=== PATIENT | male | born 1950 | race African-American/Black ===

== ENCOUNTER 2023-03-09 14:18 | Inpatient (IN) | payer MEDICAID ==
[~2023-03-09] VITALS: Ht 182.9 cm; Wt 83.9 kg
[~2023-03-09 14:18] MED LIST: ACET-868 GT; ACET100V5 HHN; ALBU2.5V13 HHN; ALBU2.5V38 HHN; AMLO-212 GT; ASCO500T10 GT; BISA10SU11 RC; DOCU100T2 GT; IPRA0.2S9 HHN; LACT-209 GT; LANS30CA56 GT; LEVE500T9 GT; LEVO50TA8 GT; MELA3TAB41 GT; METO25TA6 GT; NEOM1OIN15 TP; ONDA4TAB5 GT; PETR113O TP; SCOP1PAT11 TD; THERA HONEY TOP; ZINC220C6 GT
[2023-03-09] MEDS ORDERED: PETR113O TP (14:44)
[2023-03-09] MEDS ORDERED: HYDR1SOL TP (14:44)
[2023-03-09] MEDS ORDERED: CHLO473M5 MM (14:44)
[2023-03-09] MEDS ORDERED: GLYC2TAB21 GT (14:44)
[2023-03-09] MEDS ORDERED: DEXT15DR6 EACHEYE (14:44)
[2023-03-09] MEDS ORDERED: PANT40SU2 GT (14:44)
[2023-03-09] MEDS ORDERED: ALLA266C2 TP (14:44)
[2023-03-09] MEDS ORDERED: LEVE100S GT (14:44)
[2023-03-09] MEDS ORDERED: NEOM28.37 TP (14:56)
[2023-03-09 16:11] LABS: BASOPHILS % (AUTO) 0.9 % (0.0-2.0); EOSINOPHILS # (AUTO) 0.3 K/uL (0.0-0.7); HEMATOCRIT 37 % (39-51); HEMOGLOBIN 11.1 g/dL (13.5-17.5); LYMPHOCYTES # (AUTO) 1.4 K/uL (0.8-4.8); LYMPHOCYTES % (AUTO) 26.4 % (20.0-44.0); MEAN CORPUSCULAR HEMOGLOBIN 24 PG (26.0-33.0); MEAN CORPUSCULAR HGB CONC 31 g/dl (31.0-36.0); MEAN CORPUSCULAR VOLUME 78 fL (80-96); MONOCYTES # (AUTO) 0.6 K/uL (0.1-1.30); MONOCYTES % (AUTO) 11.2 % (2.0-12.0); NEUTROPHILS # (AUTO) 3.1 K/uL (1.8-8.9); NEUTROPHILS % (AUTO) 56.5 % (43.0-81.0); PLATELET COUNT (AUTO) 287 K/uL (150-450); RED BLOOD CELL COUNT(AUTO) 4.66 MIL/uL (4.5-6.0); RED CELL DISTRIBUTION WIDTH 24.9 % (11.5-15.0); WHITE BLOOD COUNT (AUTO) 5.4 K/uL (4.3-11.0)
[2023-03-09 16:32] LABS: INR 1.1 (0.91-1.10); PARTIAL THROMBOPLASTIN TIME 31.8 SEC (24.3-34.3); PROTHROMBIN TIME 11.6 SECS (9.2-11.1)
[2023-03-09 16:36] LABS: ALANINE AMINOTRANSFERASE 47 U/L (12-78); ALBUMIN 3.1 g/dL (3.4-5.0); ALKALINE PHOSPHATASE 162 U/L (46-116); ASPARTATE AMINOTRANSFERASE 26 U/L (15-37); BILIRUBIN,DIRECT 0.1 mg/dL (0.0-0.2); BILIRUBIN,TOTAL 0.3 mg/dL (0.2-1.0); CALCIUM, SERUM 9.5 mg/dL (8.5-10.1); CARBON DIOXIDE 27 mmol/L (21-32); CHLORIDE 106 mmol/L (98-107); CREATININE 0.6 mg/dL (0.6-1.3); GLUCOSE 88 mg/dL (74-106); POTASSIUM 4.1 mmol/L (3.5-5.1); SODIUM SERUM 141 mmol/L (136-145); TOTAL PROTEIN, SERUM 10.2 g/dL (6.4-8.2); UREA NITROGEN, BLOOD 20 mg/dL (7-18)
[2023-03-09 17:42] LABS: ANISOCYTOSIS 1+; BASOPHILS % (MANUAL) 1 % (0.0-2.0); EOSINOPHILS % (MANUAL) 4 % (0-4); HYPOCHROMASIA 1+; LYMPHOCYTES % (MANUAL) 28 % (16-48); MONOCYTES % (MANUAL) 8 % (0-11.0); NEUTROPHILS % (MANUAL) 59 (42-76); PLATELET ESTIMATE ADEQUATE; ROULEAUX 1+
[2023-03-09 17:46] VITALS: BP 161/95; TEMP 98.9; O2SAT 100
[2023-03-09] MEDS ORDERED: IPRATROPIUM NEB FS 0.5 MG/2.5 ML AMPUL.NEB HHN PRN (18:00)
[2023-03-09] MEDS ORDERED: BISACODYL SUPP (10 MG) 10 MG/SUPP.RECT SUPP.RECT RC PRN (18:00)
[2023-03-09] MEDS ORDERED: ACETAMINOPHEN 325 MG TABLET MC PRN ×2 (18:00)
[2023-03-09] MEDS ORDERED: JEVITY 1.2 CAL 1,000 ML BOTTLE GT SCH (18:00)
[2023-03-09] MEDS ORDERED: ALBUTEROL FS 2.5 MG/3 ML VIAL.NEB NEB PRN (18:00)
[2023-03-09 20:00] VITALS: BP 161/95; TEMP 98.9; O2SAT 100
[2023-03-09] MEDS ORDERED: ONDANSETRON HCL/PF 4 MG/2 ML VIAL IVP PRN (20:00)
[2023-03-09] MEDS ORDERED: Z GUARD REMEDY 4 OZ OINT TP PRN (20:00)
[2023-03-09] MEDS: IPRATROPIUM NEB FS 0.5 MG/2.5 ML AMPUL.NEB HHN SCH (20:05)
[2023-03-09] MEDS: ALBUTEROL FS 2.5 MG/0.5 ML VIAL.NEB HHN SCH (20:06)
[2023-03-09] MEDS: NEOMY SULF/BACITRAC ZN/POLY 15 GM TUBE TP SCH (21:00)
[2023-03-09] MEDS: LEVETIRACETAM SOL (5 ML) 100 MG/ML UDC GT SCH (22:09)
[2023-03-09] MEDS: ENOXAPARIN SODIUM 40 MG/0.4 ML DISP.SYRIN SQ SCH (22:13)
[2023-03-10] VITALS: BP 138/78; TEMP 93.4; TEMP 97.6; O2SAT 100
[2023-03-10] MEDS: IPRATROPIUM NEB FS 0.5 MG/2.5 ML AMPUL.NEB HHN SCH ×7 (00:12→23:46)
[2023-03-10] MEDS: ALBUTEROL FS 2.5 MG/0.5 ML VIAL.NEB HHN SCH ×7 (00:12→23:46)
[2023-03-10] MEDS: IV NS 0.9% 1,000 ML IV PRN ×2 (01:58→14:20)
[2023-03-10 04:00] VITALS: BP 125/65; TEMP 98.6; O2SAT 98
[2023-03-10] MEDS: PANTOPRAZOLE 40 MG/PACK PACK GT SCH (05:50)
[2023-03-10] MEDS: LEVOTHYROXINE SODIUM 50 MCG TABLET GT SCH (05:51)
[2023-03-10 07:06] LABS: BASOPHILS % (AUTO) 0.6 % (0.0-2.0); EOSINOPHILS # (AUTO) 0.2 K/uL (0.0-0.7); EOSINOPHILS % (AUTO) 5.2 % (0.0-6.0); HEMATOCRIT 38 % (39-51); HEMOGLOBIN 11.7 g/dL (13.5-17.5); LYMPHOCYTES # (AUTO) 1.3 K/uL (0.8-4.8); LYMPHOCYTES % (AUTO) 31.2 % (20.0-44.0); MEAN CORPUSCULAR HEMOGLOBIN 24 PG (26.0-33.0); MEAN CORPUSCULAR HGB CONC 31 g/dl (31.0-36.0); MEAN CORPUSCULAR VOLUME 79 fL (80-96); MONOCYTES # (AUTO) 0.3 K/uL (0.1-1.30); MONOCYTES % (AUTO) 8.4 % (2.0-12.0); NEUTROPHILS # (AUTO) 2.2 K/uL (1.8-8.9); NEUTROPHILS % (AUTO) 54.6 % (43.0-81.0); PLATELET COUNT (AUTO) 264 K/uL (150-450); RED BLOOD CELL COUNT(AUTO) 4.83 MIL/uL (4.5-6.0); RED CELL DISTRIBUTION WIDTH 25.1 % (11.5-15.0); WHITE BLOOD COUNT (AUTO) 4.1 K/uL (4.3-11.0)
[2023-03-10 07:31] LABS: CALCIUM, SERUM 9.3 mg/dL (8.5-10.1); CREATININE 0.7 mg/dL (0.6-1.3); MAGNESIUM 1.9 mg/dL (1.8-2.4); POTASSIUM 4.1 mmol/L (3.5-5.1)
[2023-03-10 08:00] VITALS: BP 137/80; TEMP 98; O2SAT 98
[2023-03-10 08:28] LABS: ANISOCYTOSIS 1+; EOSINOPHILS % (MANUAL) 4 % (0-4); LYMPHOCYTES % (MANUAL) 34 % (16-48); MONOCYTES % (MANUAL) 13 % (0-11.0); NEUTROPHILS % (MANUAL) 49 (42-76); PLATELET ESTIMATE ADEQUATE
[2023-03-10] MEDS: CHLORHEXIDINE GLUCONATE 15 ML UDC MM SCH ×2 (08:49→16:48)
[2023-03-10] MEDS: LEVETIRACETAM SOL (5 ML) 100 MG/ML UDC GT SCH ×2 (08:50→21:03)
[2023-03-10] MEDS: NEOMY SULF/BACITRAC ZN/POLY 15 GM TUBE TP SCH ×2 (08:51→21:14)
[2023-03-10] MEDS: AMLODIPINE BESYLATE 5 MG TABLET GT SCH (08:51)
[2023-03-10 12:00] VITALS: BP 145/84; TEMP 97.9; O2SAT 99
[2023-03-10] MEDS: JEVITY 1.2 CAL 1,000 ML BOTTLE GT SCH (14:19)
[2023-03-10 16:00] VITALS: BP 128/78; TEMP 97.9; O2SAT 99
[2023-03-10 20:00] VITALS: BP 110/65; TEMP 98.1; O2SAT 99
[2023-03-10] MEDS: ENOXAPARIN SODIUM 40 MG/0.4 ML DISP.SYRIN SQ SCH (21:04)
[2023-03-11] VITALS: BP 110/65; TEMP 98.1; O2SAT 99
[2023-03-11] MEDS: IV NS 0.9% 1,000 ML IV PRN ×2 (03:22→15:29)
[2023-03-11 04:00] VITALS: BP 110/65; TEMP 98.1; O2SAT 99
[2023-03-11] MEDS: ALBUTEROL FS 2.5 MG/0.5 ML VIAL.NEB HHN SCH ×6 (04:08→23:28)
[2023-03-11] MEDS: IPRATROPIUM NEB FS 0.5 MG/2.5 ML AMPUL.NEB HHN SCH ×6 (04:08→23:28)
[2023-03-11] MEDS: LEVOTHYROXINE SODIUM 50 MCG TABLET GT SCH (05:29)
[2023-03-11] MEDS: PANTOPRAZOLE 40 MG/PACK PACK GT SCH (05:30)
[2023-03-11 08:00] VITALS: BP 137/69; TEMP 97.5; O2SAT 99
[2023-03-11] MEDS: NEOMY SULF/BACITRAC ZN/POLY 15 GM TUBE TP SCH ×2 (08:35→21:28)
[2023-03-11] MEDS: LEVETIRACETAM SOL (5 ML) 100 MG/ML UDC GT SCH ×2 (08:39→21:17)
[2023-03-11] MEDS: CHLORHEXIDINE GLUCONATE 15 ML UDC MM SCH ×2 (08:40→16:31)
[2023-03-11] MEDS: AMLODIPINE BESYLATE 5 MG TABLET GT SCH (08:40)
[2023-03-11 12:00] VITALS: BP 123/74; TEMP 98.2; O2SAT 100
[2023-03-11] MEDS: JEVITY 1.2 CAL 1,000 ML BOTTLE GT SCH (15:19)
[2023-03-11 16:00] VITALS: BP 130/70; TEMP 98.8; O2SAT 99
[2023-03-11 20:00] VITALS: BP 92/44; TEMP 99; O2SAT 98
[2023-03-11] MEDS: ENOXAPARIN SODIUM 40 MG/0.4 ML DISP.SYRIN SQ SCH (21:18)
[2023-03-12] VITALS: BP 142/78; TEMP 97.5; O2SAT 100
[2023-03-12 04:00] VITALS: BP 141/76; TEMP 98.6; O2SAT 100
[2023-03-12] MEDS: ALBUTEROL FS 2.5 MG/0.5 ML VIAL.NEB HHN SCH ×3 (04:15→11:31)
[2023-03-12] MEDS: IPRATROPIUM NEB FS 0.5 MG/2.5 ML AMPUL.NEB HHN SCH ×3 (04:16→11:30)
[2023-03-12] MEDS: LEVOTHYROXINE SODIUM 50 MCG TABLET GT SCH (05:04)
[2023-03-12] MEDS: PANTOPRAZOLE 40 MG/PACK PACK GT SCH (05:04)
[2023-03-12 08:00] VITALS: BP 148/81; TEMP 98.1; O2SAT 100
[2023-03-12] MEDS: CHLORHEXIDINE GLUCONATE 15 ML UDC MM SCH (08:48)
[2023-03-12] MEDS: LEVETIRACETAM SOL (5 ML) 100 MG/ML UDC GT SCH (08:48)
[2023-03-12 08:49] VITALS: BP 148/81
[2023-03-12] MEDS: AMLODIPINE BESYLATE 5 MG TABLET GT SCH (08:49)
[2023-03-12] MEDS: NEOMY SULF/BACITRAC ZN/POLY 15 GM TUBE TP SCH (08:49)
[2023-03-12] MEDS: JEVITY 1.2 CAL 1,000 ML BOTTLE GT SCH (08:53)
== END 2023-03-12 14:35 | DRG 201 ==
LOC: ER 14:21 → TELE-TD 17:23 → TELE1 03-12 09:49
PROVIDERS: ADMIT Nurse Practitioner Acute Care; ATTEND Nurse Practitioner Acute Care
PROC: 5A1945Z Respiratory Ventilation, 24-96 Consecutive Hours (ICD-10-PCS; principal; 2023-03-09)
DX: I44.2 Atrioventricular block, complete (principal); J96.20 Acute and chronic respiratory failure, unspecified whether with hypoxia or hypercapnia; I21.A1 Myocardial infarction type 2; R53.2 Functional quadriplegia; J90 Pleural effusion, not elsewhere classified; G93.1 Anoxic brain damage, not elsewhere classified; E87.1 Hypo-osmolality and hyponatremia; D63.8 Anemia in other chronic diseases classified elsewhere; Z99.11 Dependence on respirator [ventilator] status; Z93.1 Gastrostomy status; Z93.0 Tracheostomy status; R13.10 Dysphagia, unspecified; R33.9 Retention of urine, unspecified; Z79.51 Long term (current) use of inhaled steroids; Z79.899 Other long term (current) drug therapy; Q27.30 Arteriovenous malformation, site unspecified; I11.0 Hypertensive heart disease with heart failure; E78.5 Hyperlipidemia, unspecified; M10.9 Gout, unspecified; L30.9 Dermatitis, unspecified; E03.9 Hypothyroidism, unspecified; Z98.890 Other specified postprocedural states; Z79.890 Hormone replacement therapy; I50.42 Chronic combined systolic (congestive) and diastolic (congestive) heart failure
CPT/HCPCS: 31720; 36415; 71045-TC; 80048-TC; 80061-TC; 80076-TC; 83735-TC; 84100-TC; 84484-TC; 85025-TC; 85730-TC; 93307-TC; 94002-TC; 94003-TC; 94760-TC; 94799-TC; A6253; G0378; J1650; J1953; J7030

== ENCOUNTER 2023-04-10 06:44 | Inpatient (IN) | payer MEDICAID ==
[2023-04-10] VITALS (11 sets, daily range): BP systolic 96–133; BP diastolic 55–71; TEMP 96.1–98.4; O2SAT 98–100
[~2023-04-10] VITALS: Ht 170.2 cm; Wt 75.8 kg
[~2023-04-10 06:44] MED LIST changes: -ACET100V5 HHN; +ALLA266C2 TP; -ASCO500T10 GT; +CHLO473M5 MM; +DEXT15DR6 EACHEYE; +GLYC2TAB21 GT; +HYDR1SOL TP; -LANS30CA56 GT; +LEVE100S GT; -LEVE500T9 GT; -NEOM1OIN15 TP; +NEOM28.37 TP; +PANT40SU2 GT; -SCOP1PAT11 TD; -THERA HONEY TOP; -ZINC220C6 GT
[2023-04-10] MEDS ORDERED: LEVETIRACETAM (500MG) 1,000 MG in IV NS 0.9% 90 ML IV STA (06:47)
[2023-04-10] MEDS ORDERED: IV NS 0.9% 1,000 ML BAG IV ONE ×3 (07:00→09:00)
[2023-04-10] MEDS ORDERED: LEVETIRACETAM (500MG) 500 MG/5 ML VIAL IV ONE ×2 (07:00→07:02)
[2023-04-10] MEDS ORDERED: LORAZEPAM INJ 2 MG/ML VIAL IV ONE (07:00)
[2023-04-10] MEDS ORDERED: DEXTROSE 50%-WATER 50 ML DISP.SYRIN ONE (07:00)
[2023-04-10] MEDS ORDERED: DEXTROSE 50%-WATER 50 ML DISP.SYRIN IVP ONE (07:00)
[2023-04-10] MEDS ORDERED: LORAZEPAM INJ 2 MG/ML VIAL ONE (07:01)
[2023-04-10 07:26] LABS: BASOPHILS % (AUTO) 0.6 % (0.0-2.0); EOSINOPHILS # (AUTO) 0.1 K/uL (0.0-0.7); EOSINOPHILS % (AUTO) 0.6 % (0.0-6.0); HEMATOCRIT 36 % (39-51); HEMOGLOBIN 11.1 g/dL (13.5-17.5); LYMPHOCYTES # (AUTO) 0.5 K/uL (0.8-4.8); LYMPHOCYTES % (AUTO) 6.2 % (20.0-44.0); MEAN CORPUSCULAR HEMOGLOBIN 24 PG (26.0-33.0); MEAN CORPUSCULAR HGB CONC 31 g/dl (31.0-36.0); MEAN CORPUSCULAR VOLUME 79 fL (80-96); MONOCYTES # (AUTO) 0.5 K/uL (0.1-1.30); MONOCYTES % (AUTO) 6.2 % (2.0-12.0); NEUTROPHILS # (AUTO) 7.4 K/uL (1.8-8.9); NEUTROPHILS % (AUTO) 86.4 % (43.0-81.0); PLATELET COUNT (AUTO) 286 K/uL (150-450); RED BLOOD CELL COUNT(AUTO) 4.56 MIL/uL (4.5-6.0); RED CELL DISTRIBUTION WIDTH 25.8 % (11.5-15.0); WHITE BLOOD COUNT (AUTO) 8.5 K/uL (4.3-11.0)
[2023-04-10 07:35] LABS: ALANINE AMINOTRANSFERASE 43 U/L (12-78); ALBUMIN 2.8 g/dL (3.4-5.0); ALCOHOL, BLOOD < 3 mg/dL (0-10); ALKALINE PHOSPHATASE 198 U/L (46-116); ASPARTATE AMINOTRANSFERASE 30 U/L (15-37); BILIRUBIN,DIRECT 0.1 mg/dL (0.0-0.2); BILIRUBIN,TOTAL 0.3 mg/dL (0.2-1.0); CALCIUM, SERUM 9.3 mg/dL (8.5-10.1); CARBON DIOXIDE 29 mmol/L (21-32); CHLORIDE 103 mmol/L (98-107); CREATININE 0.8 mg/dL (0.6-1.3); GLUCOSE 78 mg/dL (74-106); POTASSIUM 4.8 mmol/L (3.5-5.1); SODIUM SERUM 136 mmol/L (136-145); TOTAL PROTEIN, SERUM 9.7 g/dL (6.4-8.2); UREA NITROGEN, BLOOD 25 mg/dL (7-18)
[2023-04-10 08:41] LABS: THYROID STIMULATING HORMONE 4.772 uIU/mL (0.358-3.74)
[2023-04-10] MEDS ORDERED: VANCOMYCIN 1 GM in IV D5W 250 ML IV ONE (09:00)
[2023-04-10] MEDS ORDERED: CEFEPIME 1 GM in IV D5W 50 ML IV ONE (09:00)
[2023-04-10 09:31] LABS: AMPHETAMINE, URINE NEGATIVE (NEGATIVE); BARBITURATE, URINE NEGATIVE (NEGATIVE); BENZODIAZEPINE, URINE NEGATIVE (NEGATIVE); CANNABINOID, URINE NEGATIVE (NEGATIVE); COCCAINE, URINE NEGATIVE (NEGATIVE); OPIATE, URINE NEGATIVE (NEGATIVE); PHENCYCLIDINE SCREEN,URINE NEGATIVE (NEGATIVE)
[2023-04-10 09:41] LABS: APPEARANCE,URINE SLIGHTLY CLOUDY (CLEAR); BILIRUBIN,URINE NEGATIVE (NEGATIVE); BLOOD, URINE 1+ Ery/uL (NEGATIVE); COLOR,URINE YELLOW (YELLOW); KETONES,URINE NEGATIVE (NEGATIVE); LEUKOCYTE ESTERASE ,URINE 3+ (NEGATIVE); NITRITE, URINE NEGATIVE (NEGATIVE); PH,URINE 7.5 (5.0-8.0); PROTEIN,URINE 2+ mg/dl (NEGATIVE); UGLUCOSE NEGATIVE (NEGATIVE); UROBILINOGEN,URINE 0.2 EU/dL (0.2)
[2023-04-10 09:56] LABS: ADD URINE CULTURE YES; BACTERIA,URINE Moderate /HPF (None Seen); WBC,URINE 81-100 /HPF (0-3)
[2023-04-10 09:57] LABS: SQUAMOUS EPITHELIAL CELL,UR Few /HPF (None Seen)
[2023-04-10] MEDS ORDERED: ACETAMINOPHEN 325 MG TABLET PO PRN (13:30)
[2023-04-10] MEDS ORDERED: ONDANSETRON HCL/PF 4 MG/2 ML VIAL IVP PRN (13:30)
[2023-04-10] MEDS ORDERED: MAGNESIUM HYDROXIDE 30 ML UDC PO PRN (13:30)
[2023-04-10] MEDS ORDERED: ZOLPIDEM TARTRATE 5 MG TABLET PO PRN (13:30)
[2023-04-10] MEDS ORDERED: LEVETIRACETAM (500MG) 500 MG in IV NS 0.9% 100 ML IV ONE (13:30)
[2023-04-10] MEDS ORDERED: MAG HYDROX/AL HYDROX/SIMETH 30 ML UDC PO PRN (13:30)
[2023-04-10] MEDS ORDERED: LORAZEPAM INJ 2 MG/ML VIAL IV PRN (13:30)
[2023-04-10] MEDS ORDERED: Z GUARD REMEDY 4 OZ OINT TP PRN (13:30)
[2023-04-10] MEDS ORDERED: IV NS 0.9% 250 ML IV PRN (16:00)
[2023-04-10] MEDS: ACETYLCYSTEINE 10% SOLN 400 MG/4 ML VIAL NEB SCH ×2 (16:00→23:21)
[2023-04-10] MEDS: LEVETIRACETAM (500MG) 1,000 MG in IV NS 0.9% 90 ML IV SCH (20:00)
[2023-04-10] MEDS: CEFEPIME 2 GM in IV D5W 100 ML IV SCH (20:30)
[2023-04-10] MEDS: VANCOMYCIN 1 GM in IV D5W 250ml IV SCH (21:00)
[2023-04-11] VITALS (17 sets, daily range): BP systolic 108–136; BP diastolic 61–104; TEMP 97.4–98.3; O2SAT 93–99
[2023-04-11] MEDS: CEFEPIME 2 GM in IV D5W 100 ML IV SCH ×3 (05:00→20:52)
[2023-04-11 05:35] LABS: BASOPHILS % (AUTO) 0.3 % (0.0-2.0); EOSINOPHILS # (AUTO) 0.1 K/uL (0.0-0.7); HEMATOCRIT 30 % (39-51); HEMOGLOBIN 9.2 g/dL (13.5-17.5); LYMPHOCYTES # (AUTO) 0.9 K/uL (0.8-4.8); LYMPHOCYTES % (AUTO) 20.7 % (20.0-44.0); MEAN CORPUSCULAR HEMOGLOBIN 24 PG (26.0-33.0); MEAN CORPUSCULAR HGB CONC 31 g/dl (31.0-36.0); MEAN CORPUSCULAR VOLUME 80 fL (80-96); MONOCYTES # (AUTO) 0.5 K/uL (0.1-1.30); MONOCYTES % (AUTO) 11.9 % (2.0-12.0); NEUTROPHILS # (AUTO) 2.8 K/uL (1.8-8.9); NEUTROPHILS % (AUTO) 65.1 % (43.0-81.0); PLATELET COUNT (AUTO) 230 K/uL (150-450); RED BLOOD CELL COUNT(AUTO) 3.77 MIL/uL (4.5-6.0); RED CELL DISTRIBUTION WIDTH 25.3 % (11.5-15.0); WHITE BLOOD COUNT (AUTO) 4.4 K/uL (4.3-11.0)
[2023-04-11 05:46] LABS: CALCIUM, SERUM 8.7 mg/dL (8.5-10.1); CREATININE 0.8 mg/dL (0.6-1.3); MAGNESIUM 2.6 mg/dL (1.8-2.4); POTASSIUM 4.1 mmol/L (3.5-5.1)
[2023-04-11] MEDS: ACETYLCYSTEINE 10% SOLN 400 MG/4 ML VIAL NEB SCH ×2 (06:57→15:30)
[2023-04-11] MEDS: JEVITY 1.2 CAL 1,000 ML BOTTLE GT PRN (08:57)
[2023-04-11] MEDS: VANCOMYCIN 1 GM in IV D5W 250ml IV SCH (09:00)
[2023-04-11] MEDS: LEVETIRACETAM (500MG) 1,000 MG in IV NS 0.9% 90 ML IV SCH (10:25)
[2023-04-11] MEDS: LEVETIRACETAM SOL (5 ML) 100 MG/ML UDC GT SCH (20:52)
[2023-04-12 00:06] VITALS: BP 152/80; TEMP 97.6; O2SAT 99
[2023-04-12] MEDS: ACETYLCYSTEINE 10% SOLN 400 MG/4 ML VIAL NEB SCH ×4 (00:15→23:51)
[2023-04-12] MEDS: CEFEPIME 2 GM in IV D5W 100 ML IV SCH ×3 (04:26→21:10)
[2023-04-12 05:10] VITALS: BP 125/82; TEMP 98.1; O2SAT 99
[2023-04-12] MEDS: JEVITY 1.2 CAL 1,000 ML BOTTLE GT PRN (05:26)
[2023-04-12 06:00] LABS: BASOPHILS % (AUTO) 0.5 % (0.0-2.0); EOSINOPHILS # (AUTO) 0.1 K/uL (0.0-0.7); EOSINOPHILS % (AUTO) 1.4 % (0.0-6.0); HEMATOCRIT 34 % (39-51); HEMOGLOBIN 10.3 g/dL (13.5-17.5); LYMPHOCYTES # (AUTO) 1.1 K/uL (0.8-4.8); LYMPHOCYTES % (AUTO) 15.5 % (20.0-44.0); MEAN CORPUSCULAR HEMOGLOBIN 25 PG (26.0-33.0); MEAN CORPUSCULAR HGB CONC 31 g/dl (31.0-36.0); MEAN CORPUSCULAR VOLUME 80 fL (80-96); MONOCYTES # (AUTO) 0.8 K/uL (0.1-1.30); MONOCYTES % (AUTO) 10.9 % (2.0-12.0); NEUTROPHILS # (AUTO) 4.9 K/uL (1.8-8.9); NEUTROPHILS % (AUTO) 71.7 % (43.0-81.0); PLATELET COUNT (AUTO) 271 K/uL (150-450); RED CELL DISTRIBUTION WIDTH 25.7 % (11.5-15.0); WHITE BLOOD COUNT (AUTO) 6.9 K/uL (4.3-11.0)
[2023-04-12 06:54] LABS: CREATININE 0.8 mg/dL (0.6-1.3); MAGNESIUM 2.3 mg/dL (1.8-2.4); PHOSPHORUS 3.3 mg/dL (2.5-4.9); POTASSIUM 4.2 mmol/L (3.5-5.1)
[2023-04-12 08:00] VITALS: BP 119/72; TEMP 98.1; O2SAT 97
[2023-04-12] MEDS: LEVETIRACETAM SOL (5 ML) 100 MG/ML UDC GT SCH ×2 (08:51→21:19)
[2023-04-12] MEDS: LORAZEPAM INJ 2 MG/ML VIAL IV PRN (10:08)
[2023-04-12] MEDS: VANCOMYCIN 0.75 GM in IV D5W 250 ML IV SCH ×2 (10:27→21:16)
[2023-04-12 12:00] VITALS: BP 113/61; TEMP 97.7; O2SAT 95
[2023-04-12] MEDS ORDERED: ACETAMINOPHEN 325 MG TABLET PO PRN (13:30)
[2023-04-12] MEDS ORDERED: BISACODYL SUPP (10 MG) 10 MG/SUPP.RECT SUPP.RECT RC PRN (13:30)
[2023-04-12] MEDS ORDERED: ONDANSETRON 4 MG TAB.RAPDIS GT PRN (13:30)
[2023-04-12] MEDS ORDERED: IPRATROPIUM NEB FS 0.5 MG/2.5 ML AMPUL.NEB HHN PRN (13:30)
[2023-04-12] MEDS ORDERED: Medication Not On Formulary EA (Melatonin 3 MG) GT PRN (13:30)
[2023-04-12] MEDS: IPRATROPIUM NEB FS 0.5 MG/2.5 ML AMPUL.NEB HHN SCH ×3 (14:30→23:51)
[2023-04-12] MEDS: ALBUTEROL FS 2.5 MG/3 ML VIAL.NEB NEB PRN ×2 (14:30→16:58)
[2023-04-12] MEDS: ALBUTEROL FS 2.5 MG/0.5 ML VIAL.NEB HHN SCH ×3 (15:30→23:51)
[2023-04-12 16:00] VITALS: BP 130/72; TEMP 97.5; O2SAT 100
[2023-04-12] MEDS: CHLORHEXIDINE GLUCONATE 15 ML UDC MM SCH (18:02)
[2023-04-12] MEDS: POLYVINYL ALCOHOL 15 ML BOTTLE EACHEYE SCH (18:02)
[2023-04-12 20:00] VITALS: BP 132/76; TEMP 96.8; O2SAT 100
[2023-04-12] MEDS ORDERED: [UNRECOGNIZED DRUG - OTHER] TOP SCH (21:00)
[2023-04-12] MEDS: VITS A AND D/WHITE PET/LANOLIN 5 GM PACKET TP SCH (21:00)
[2023-04-12] MEDS ORDERED: LEVETIRACETAM SOL (5 ML) 100 MG/ML UDC GT SCH (21:00)
[2023-04-12] MEDS: METOPROLOL TARTRATE 25 MG TABLET GT SCH (21:17)
[2023-04-12] MEDS: Z GUARD REMEDY 4 OZ OINT TP SCH (22:26)
[2023-04-13] VITALS: BP 114/73; TEMP 95; O2SAT 100
[2023-04-13 04:00] VITALS: BP 125/81; TEMP 98.1; O2SAT 99
[2023-04-13] MEDS: IPRATROPIUM NEB FS 0.5 MG/2.5 ML AMPUL.NEB HHN SCH ×6 (04:01→23:39)
[2023-04-13] MEDS: ALBUTEROL FS 2.5 MG/0.5 ML VIAL.NEB HHN SCH ×6 (04:01→23:39)
[2023-04-13] MEDS: CEFEPIME 2 GM in IV D5W 100 ML IV SCH ×3 (04:56→20:06)
[2023-04-13] MEDS: LORAZEPAM INJ 2 MG/ML VIAL IV PRN (05:56)
[2023-04-13] MEDS: PANTOPRAZOLE 40 MG/PACK PACK GT SCH (05:57)
[2023-04-13] MEDS: POLYVINYL ALCOHOL 15 ML BOTTLE EACHEYE SCH ×4 (05:57→18:06)
[2023-04-13] MEDS: LEVOTHYROXINE SODIUM 50 MCG TABLET GT SCH (05:57)
[2023-04-13] MEDS ORDERED: MAGNESIUM HYDROXIDE 30 ML UDC GT PRN (06:23)
[2023-04-13] MEDS ORDERED: ZOLPIDEM TARTRATE 5 MG TABLET GT PRN (06:23)
[2023-04-13] MEDS ORDERED: MAG HYDROX/AL HYDROX/SIMETH 30 ML UDC GT PRN (06:23)
[2023-04-13 06:30] LABS: BASOPHILS % (AUTO) 0.4 % (0.0-2.0); EOSINOPHILS # (AUTO) 0.1 K/uL (0.0-0.7); HEMATOCRIT 33 % (39-51); HEMOGLOBIN 9.8 g/dL (13.5-17.5); LYMPHOCYTES # (AUTO) 0.8 K/uL (0.8-4.8); LYMPHOCYTES % (AUTO) 18.2 % (20.0-44.0); MEAN CORPUSCULAR HEMOGLOBIN 24 PG (26.0-33.0); MEAN CORPUSCULAR HGB CONC 30 g/dl (31.0-36.0); MEAN CORPUSCULAR VOLUME 81 fL (80-96); MONOCYTES # (AUTO) 0.6 K/uL (0.1-1.30); MONOCYTES % (AUTO) 13.5 % (2.0-12.0); NEUTROPHILS # (AUTO) 2.8 K/uL (1.8-8.9); NEUTROPHILS % (AUTO) 65.9 % (43.0-81.0); PLATELET COUNT (AUTO) 215 K/uL (150-450); RED BLOOD CELL COUNT(AUTO) 4.07 MIL/uL (4.5-6.0); RED CELL DISTRIBUTION WIDTH 26.1 % (11.5-15.0); WHITE BLOOD COUNT (AUTO) 4.3 K/uL (4.3-11.0)
[2023-04-13] MEDS ORDERED: ACETAMINOPHEN 650 MG/20.3 ML UDC GT PRN (06:30)
[2023-04-13 07:12] LABS: CALCIUM, SERUM 9.2 mg/dL (8.5-10.1); CREATININE 0.7 mg/dL (0.6-1.3); MAGNESIUM 2.5 mg/dL (1.8-2.4); PHOSPHORUS 3.6 mg/dL (2.5-4.9); POTASSIUM 4.5 mmol/L (3.5-5.1)
[2023-04-13] MEDS: ACETYLCYSTEINE 10% SOLN 400 MG/4 ML VIAL NEB SCH ×3 (07:40→23:39)
[2023-04-13 08:00] VITALS: BP 121/70; TEMP 98.1; O2SAT 99
[2023-04-13] MEDS: VITS A AND D/WHITE PET/LANOLIN 5 GM PACKET TP SCH (09:00)
[2023-04-13] MEDS: METOPROLOL TARTRATE 25 MG TABLET GT SCH ×2 (09:00→21:10)
[2023-04-13] MEDS: Z GUARD REMEDY 4 OZ OINT TP SCH ×2 (09:40→21:23)
[2023-04-13] MEDS: LEVETIRACETAM SOL (5 ML) 100 MG/ML UDC GT SCH ×2 (09:40→21:10)
[2023-04-13] MEDS: CHLORHEXIDINE GLUCONATE 15 ML UDC MM SCH ×2 (09:40→17:25)
[2023-04-13] MEDS: DOCUSATE SODIUM LIQ 100 MG/10 ML UDC GT SCH (09:41)
[2023-04-13] MEDS: GLYCOPYRROLATE 1 MG TABLET GT SCH (09:41)
[2023-04-13] MEDS: AMLODIPINE BESYLATE 5 MG TABLET GT SCH (09:41)
[2023-04-13] MEDS: VANCOMYCIN 0.75 GM in IV D5W 250 ML IV SCH ×2 (09:42→21:00)
[2023-04-13] MEDS: HYDROGEN PEROXIDE 480 ML BOTTLE TP SCH (09:55)
[2023-04-13 12:00] VITALS: BP 109/62; TEMP 97; O2SAT 100
[2023-04-13] MEDS: VITAMINS A AND D 56.7 GM TUBE TP SCH ×2 (12:33→21:23)
[2023-04-13 16:00] VITALS: BP 120/73; TEMP 97; O2SAT 99
[2023-04-13] MEDS: JEVITY 1.2 CAL 1,000 ML BOTTLE GT PRN (18:16)
[2023-04-13 22:50] VITALS: BP 120/70; TEMP 97.1; O2SAT 99
[2023-04-14] MEDS: POLYVINYL ALCOHOL 15 ML BOTTLE EACHEYE SCH ×4 (02:55→18:02)
[2023-04-14] MEDS: ALBUTEROL FS 2.5 MG/0.5 ML VIAL.NEB HHN SCH ×6 (03:43→23:20)
[2023-04-14] MEDS: IPRATROPIUM NEB FS 0.5 MG/2.5 ML AMPUL.NEB HHN SCH ×6 (03:43→23:20)
[2023-04-14 04:00] VITALS: BP 126/69; TEMP 96.4; O2SAT 100
[2023-04-14] MEDS: CEFEPIME 2 GM in IV D5W 100 ML IV SCH ×3 (05:02→20:55)
[2023-04-14] MEDS: PANTOPRAZOLE 40 MG/PACK PACK GT SCH (05:26)
[2023-04-14] MEDS: LEVOTHYROXINE SODIUM 50 MCG TABLET GT SCH (05:26)
[2023-04-14 08:00] VITALS: BP_SYST 115; BP_SYST 126; BP_DIAS 69; BP_DIAS 71; TEMP 96.4; TEMP 97; O2SAT 100
[2023-04-14] MEDS: ACETYLCYSTEINE 10% SOLN 400 MG/4 ML VIAL NEB SCH ×3 (08:20→23:21)
[2023-04-14 08:25] LABS: CALCIUM, SERUM 9.1 mg/dL (8.5-10.1); CREATININE 0.7 mg/dL (0.6-1.3); MAGNESIUM 2.6 mg/dL (1.8-2.4); PHOSPHORUS 3.4 mg/dL (2.5-4.9); POTASSIUM 5.1 mmol/L (3.5-5.1)
[2023-04-14] MEDS: VITAMINS A AND D 56.7 GM TUBE TP SCH ×2 (09:00→20:56)
[2023-04-14] MEDS: Z GUARD REMEDY 4 OZ OINT TP SCH ×2 (09:00→21:01)
[2023-04-14] MEDS: HYDROGEN PEROXIDE 480 ML BOTTLE TP SCH (09:00)
[2023-04-14] MEDS: METOPROLOL TARTRATE 25 MG TABLET GT SCH ×2 (09:00→20:54)
[2023-04-14] MEDS: VANCOMYCIN 0.75 GM in IV D5W 250 ML IV SCH (09:00)
[2023-04-14] MEDS: DOCUSATE SODIUM LIQ 100 MG/10 ML UDC GT SCH (09:57)
[2023-04-14] MEDS: LEVETIRACETAM SOL (5 ML) 100 MG/ML UDC GT SCH ×2 (09:57→20:53)
[2023-04-14] MEDS: AMLODIPINE BESYLATE 5 MG TABLET GT SCH (09:57)
[2023-04-14] MEDS: GLYCOPYRROLATE 1 MG TABLET GT SCH (09:59)
[2023-04-14] MEDS: CHLORHEXIDINE GLUCONATE 15 ML UDC MM SCH ×2 (10:03→18:02)
[2023-04-14 11:33] LABS: BASOPHILS % (AUTO) 0.6 % (0.0-2.0); EOSINOPHILS # (AUTO) 0.1 K/uL (0.0-0.7); EOSINOPHILS % (AUTO) 2.5 % (0.0-6.0); HEMATOCRIT 32 % (39-51); HEMOGLOBIN 9.8 g/dL (13.5-17.5); LYMPHOCYTES # (AUTO) 1.2 K/uL (0.8-4.8); LYMPHOCYTES % (AUTO) 21.7 % (20.0-44.0); MEAN CORPUSCULAR HEMOGLOBIN 25 PG (26.0-33.0); MEAN CORPUSCULAR HGB CONC 30 g/dl (31.0-36.0); MEAN CORPUSCULAR VOLUME 81 fL (80-96); MONOCYTES # (AUTO) 0.9 K/uL (0.1-1.30); MONOCYTES % (AUTO) 15.9 % (2.0-12.0); NEUTROPHILS # (AUTO) 3.3 K/uL (1.8-8.9); NEUTROPHILS % (AUTO) 59.3 % (43.0-81.0); PLATELET COUNT (AUTO) 203 K/uL (150-450); RED BLOOD CELL COUNT(AUTO) 3.99 MIL/uL (4.5-6.0); RED CELL DISTRIBUTION WIDTH 25.4 % (11.5-15.0); WHITE BLOOD COUNT (AUTO) 5.6 K/uL (4.3-11.0)
[2023-04-14 12:00] VITALS: BP 135/71; TEMP 97; O2SAT 100
[2023-04-14] MEDS: LORAZEPAM INJ 2 MG/ML VIAL IV PRN (13:24)
[2023-04-14 16:00] VITALS: BP 135/71; TEMP 97; O2SAT 100
[2023-04-14] MEDS: JEVITY 1.2 CAL 1,000 ML BOTTLE GT PRN (16:05)
[2023-04-14 20:00] VITALS: BP 119/71; TEMP 97.3; O2SAT 100
[2023-04-14] MEDS ORDERED: VANCOMYCIN 1 GM in IV D5W 250 ML IV SCH (21:00)
[2023-04-15] VITALS: BP 147/86; TEMP 94; O2SAT 100
[2023-04-15] MEDS: POLYVINYL ALCOHOL 15 ML BOTTLE EACHEYE SCH ×3 (00:18→12:01)
[2023-04-15] MEDS: ALBUTEROL FS 2.5 MG/0.5 ML VIAL.NEB HHN SCH ×3 (03:57→11:24)
[2023-04-15] MEDS: IPRATROPIUM NEB FS 0.5 MG/2.5 ML AMPUL.NEB HHN SCH ×3 (03:57→11:24)
[2023-04-15 04:00] VITALS: BP 109/86; TEMP 97.6; O2SAT 98
[2023-04-15] MEDS: CEFEPIME 2 GM in IV D5W 100 ML IV SCH ×2 (04:04→12:02)
[2023-04-15] MEDS: PANTOPRAZOLE 40 MG/PACK PACK GT SCH (05:02)
[2023-04-15] MEDS: LEVOTHYROXINE SODIUM 50 MCG TABLET GT SCH (05:02)
[2023-04-15 06:27] LABS: BASOPHILS % (AUTO) 0.4 % (0.0-2.0); EOSINOPHILS # (AUTO) 0.2 K/uL (0.0-0.7); EOSINOPHILS % (AUTO) 4.4 % (0.0-6.0); HEMATOCRIT 29 % (39-51); HEMOGLOBIN 9.1 g/dL (13.5-17.5); LYMPHOCYTES # (AUTO) 0.8 K/uL (0.8-4.8); LYMPHOCYTES % (AUTO) 18.5 % (20.0-44.0); MEAN CORPUSCULAR HEMOGLOBIN 25 PG (26.0-33.0); MEAN CORPUSCULAR HGB CONC 31 g/dl (31.0-36.0); MEAN CORPUSCULAR VOLUME 79 fL (80-96); MONOCYTES # (AUTO) 0.6 K/uL (0.1-1.30); MONOCYTES % (AUTO) 15.1 % (2.0-12.0); NEUTROPHILS # (AUTO) 2.5 K/uL (1.8-8.9); NEUTROPHILS % (AUTO) 61.6 % (43.0-81.0); PLATELET COUNT (AUTO) 227 K/uL (150-450); RED CELL DISTRIBUTION WIDTH 25.3 % (11.5-15.0); WHITE BLOOD COUNT (AUTO) 4.1 K/uL (4.3-11.0)
[2023-04-15 07:00] LABS: ALBUMIN 2.2 g/dL (3.4-5.0); BILIRUBIN,TOTAL 0.3 mg/dL (0.2-1.0); CALCIUM, SERUM 8.7 mg/dL (8.5-10.1); CREATININE 0.8 mg/dL (0.6-1.3); MAGNESIUM 2.2 mg/dL (1.8-2.4); PHOSPHORUS 3.2 mg/dL (2.5-4.9); POTASSIUM 5.2 mmol/L (3.5-5.1); TOTAL PROTEIN, SERUM 8.1 g/dL (6.4-8.2)
[2023-04-15 08:00] VITALS: BP 110/57; TEMP 94.6; O2SAT 100
[2023-04-15] MEDS: ACETYLCYSTEINE 10% SOLN 400 MG/4 ML VIAL NEB SCH (08:36)
[2023-04-15] MEDS: LEVETIRACETAM SOL (5 ML) 100 MG/ML UDC GT SCH (09:30)
[2023-04-15] MEDS: CHLORHEXIDINE GLUCONATE 15 ML UDC MM SCH (09:31)
[2023-04-15] MEDS: METOPROLOL TARTRATE 25 MG TABLET GT SCH (09:31)
[2023-04-15] MEDS: AMLODIPINE BESYLATE 5 MG TABLET GT SCH (09:31)
[2023-04-15] MEDS: DOCUSATE SODIUM LIQ 100 MG/10 ML UDC GT SCH (09:31)
[2023-04-15] MEDS: GLYCOPYRROLATE 1 MG TABLET GT SCH (09:31)
[2023-04-15] MEDS: HYDROGEN PEROXIDE 480 ML BOTTLE TP SCH (09:33)
[2023-04-15] MEDS: Z GUARD REMEDY 4 OZ OINT TP SCH (09:49)
[2023-04-15] MEDS: VITAMINS A AND D 56.7 GM TUBE TP SCH (09:50)
[2023-04-15 12:00] VITALS: BP 111/62; TEMP 94.7; O2SAT 100
[2023-04-15] MEDS ORDERED: POLY15DR40 EACHEYE (14:28)
[2023-04-15] MEDS ORDERED: CEFE2FRO IV (14:28)
[2023-04-15] MEDS ORDERED: ACET100V5 NEB (14:28)
[2023-04-15] MEDS ORDERED: ZOLP5TAB8 PO (14:28)
[2023-04-15] MEDS ORDERED: VANC1PLA9 IV (14:28)
== END 2023-04-15 15:01 | DRG 130 ==
LOC: ER 06:52 → TRANSITION 09:44 → TELE-TD 11:30 → ICU 13:30 → TELE-TD 04-11 12:30 → MEDSG1 04-11 14:09 → TELE-TD 04-11 14:10 → TELE1 04-12 11:05
PROVIDERS: ADMIT Student in an Organized Health Care Education/Training Program
PROC: 5A1955Z Respiratory Ventilation, Greater than 96 Consecutive Hours (ICD-10-PCS; principal; 2023-04-10)
PROC: 02HV33Z Insertion of Infusion Device into Superior Vena Cava, Percutaneous Approach (ICD-10-PCS; 2023-04-10)
PROC: B548ZZA Ultrasonography of Superior Vena Cava, Guidance (ICD-10-PCS; 2023-04-10)
DX: J15.69 Pneumonia due to other Gram-negative bacteria (principal); G93.49 Other encephalopathy; G93.1 Anoxic brain damage, not elsewhere classified; G40.901 Epilepsy, unspecified, not intractable, with status epilepticus; R53.2 Functional quadriplegia; Q28.2 Arteriovenous malformation of cerebral vessels; E87.1 Hypo-osmolality and hyponatremia; D63.8 Anemia in other chronic diseases classified elsewhere; J90 Pleural effusion, not elsewhere classified; J96.10 Chronic respiratory failure, unspecified whether with hypoxia or hypercapnia; Z99.11 Dependence on respirator [ventilator] status; N39.0 Urinary tract infection, site not specified; E78.5 Hyperlipidemia, unspecified; I10 Essential (primary) hypertension; Z98.2 Presence of cerebrospinal fluid drainage device; Z93.0 Tracheostomy status; Z93.1 Gastrostomy status; R13.10 Dysphagia, unspecified; E03.9 Hypothyroidism, unspecified; K21.9 Gastro-esophageal reflux disease without esophagitis; Z79.899 Other long term (current) drug therapy; R33.9 Retention of urine, unspecified; Z79.51 Long term (current) use of inhaled steroids; M10.9 Gout, unspecified; T17.990A Other foreign object in respiratory tract, part unspecified in causing asphyxiation, initial encounter; W44.F9XA Other object of natural or organic material, entering into or through a natural orifice, initial encounter; Y92.9 Unspecified place or not applicable; J98.11 Atelectasis; L30.9 Dermatitis, unspecified; Y95 Nosocomial condition
CPT/HCPCS: 31720; 36415; 70450-TC; 71045-TC; 71250-TC; 80048-TC; 80053-TC; 80076-TC; 80202-TC; 81001; 82962-TC; 83605-TC; 83735-TC; 83880; 84100-TC; 84439-TC; 84443-TC; 84484-TC; 85025-TC; 87086-TC; 94003-TC; 94760-TC; 94762-TC; 94799-TC; 95819-TC; A4223; A6253; A6403; A7526; G0378; G0480; J0692; J1953; J2060; J3370; J7030; J7040; J7050; J7060

== ENCOUNTER 2023-05-11 | Inpatient (IN) | payer MEDICAID ==
[~2023-05-11] VITALS: Ht 170.2 cm; Wt 77.1 kg
[~2023-05-11] MED LIST changes: +ACET100V5 NEB; +CEFE2FRO IV; -DEXT15DR6 EACHEYE; -MELA3TAB41 GT; -NEOM28.37 TP; +POLY15DR40 EACHEYE; +VANC1PLA9 IV; +ZOLP5TAB8 PO
[2023-05-12] MEDS ORDERED: HYDROGEN PEROXIDE 480 ML BOTTLE TP PRN (07:00)
[2023-05-12] MEDS ORDERED: LEVETIRACETAM SOL (5 ML) 100 MG/ML UDC GT SCH (07:00)
[2023-05-12] MEDS: ALBUTEROL FS 2.5 MG/0.5 ML VIAL.NEB HHN SCH (08:03)
[2023-05-12] MEDS: IPRATROPIUM NEB FS 0.5 MG/2.5 ML AMPUL.NEB NEB SCH (08:03)
[2023-05-12] MEDS: HYDROGEN PEROXIDE 480 ML BOTTLE TP SCH (08:04)
[2023-05-12] MEDS: ACETYLCYSTEINE 10% SOLN 400 MG/4 ML VIAL NEB SCH (08:04)
[2023-05-12] MEDS: GLYCOPYRROLATE 1 MG TABLET GT SCH (09:00)
[2023-05-12] MEDS: DOCUSATE SODIUM LIQ 100 MG/10 ML UDC GT SCH (09:00)
[2023-05-12] MEDS: METOPROLOL TARTRATE 25 MG TABLET GT SCH (09:00)
[2023-05-12] MEDS: CHLORHEXIDINE GLUCONATE 15 ML UDC MM SCH (09:00)
[2023-05-12] MEDS: VITAMINS A AND D 56.7 GM TUBE TP SCH ×2 (09:00)
[2023-05-12] MEDS: Z GUARD REMEDY 4 OZ OINT TP SCH (09:00)
[2023-05-12] MEDS: AMLODIPINE BESYLATE 5 MG TABLET GT SCH (09:00)
[2023-05-12] MEDS: LACOSAMIDE ORAL SOLN 50 MG/5 ML UDC GT SCH (09:00)
[2023-05-12 10:18] VITALS: O2SAT 98
[2023-05-12 16:44] VITALS: BP 129/73; TEMP 97.9
[2023-05-12 20:03] VITALS: BP 139/68; TEMP 98; O2SAT 97
[2023-05-13] MEDS: POLYVINYL ALCOHOL 15 ML BOTTLE EACHEYE SCH (01:32)
[2023-05-13 04:28] VITALS: O2SAT 98
[2023-05-13] MEDS: PANTOPRAZOLE 40 MG/PACK PACK GT SCH (05:17)
[2023-05-13] MEDS: LEVETIRACETAM SOL (5 ML) 100 MG/ML UDC GT SCH (05:17)
[2023-05-13] MEDS: LEVOTHYROXINE SODIUM 50 MCG TABLET GT SCH (05:17)
[2023-05-13] MEDS: JEVITY 1.2 CAL 1,000 ML BOTTLE GT PRN (05:17)
[2023-05-13 08:03] VITALS: BP 120/69; TEMP 98.4; O2SAT 99
[2023-05-13 12:10] VITALS: O2SAT 98
[2023-05-13 20:17] VITALS: O2SAT 98
[2023-05-13 20:39] VITALS: BP 129/78; TEMP 97.9; O2SAT 99
[2023-05-13 23:31] VITALS: O2SAT 100
[2023-05-14 07:40] VITALS: BP 132/88; TEMP 97.8; O2SAT 99
[2023-05-14 09:18] VITALS: O2SAT 97
[2023-05-14 11:51] LABS: BASOPHILS # (AUTO) 0.1 K/uL (0.0-0.2); BASOPHILS % (AUTO) 0.7 % (0.0-2.0); EOSINOPHILS # (AUTO) 0.2 K/uL (0.0-0.7); EOSINOPHILS % (AUTO) 2.2 % (0.0-6.0); HEMATOCRIT 34 % (39-51); HEMOGLOBIN 10.5 g/dL (13.5-17.5); LYMPHOCYTES % (AUTO) 12.6 % (20.0-44.0); MEAN CORPUSCULAR HEMOGLOBIN 25 PG (26.0-33.0); MEAN CORPUSCULAR HGB CONC 31 g/dl (31.0-36.0); MEAN CORPUSCULAR VOLUME 80 fL (80-96); MONOCYTES # (AUTO) 0.8 K/uL (0.1-1.30); NEUTROPHILS % (AUTO) 74.5 % (43.0-81.0); PLATELET COUNT (AUTO) 692 K/uL (150-450); RED BLOOD CELL COUNT(AUTO) 4.26 MIL/uL (4.5-6.0); RED CELL DISTRIBUTION WIDTH 23.7 % (11.5-15.0)
[2023-05-14 12:00] VITALS: O2SAT 99
[2023-05-14 12:02] LABS: INR 1.15 (0.91-1.10); PROTHROMBIN TIME 12.1 SECS (9.2-11.1)
[2023-05-14 13:29] LABS: ALBUMIN 2.2 g/dL (3.4-5.0); BILIRUBIN,TOTAL 0.2 mg/dL (0.2-1.0); CALCIUM, SERUM 9.3 mg/dL (8.5-10.1); CREATININE 0.7 mg/dL (0.6-1.3); POTASSIUM 4.1 mmol/L (3.5-5.1); TOTAL PROTEIN, SERUM 9.2 g/dL (6.4-8.2)
[2023-05-14 19:35] VITALS: BP 129/78; TEMP 97.9; O2SAT 97
[2023-05-14 19:58] VITALS: O2SAT 100
[2023-05-14 22:56] VITALS: O2SAT 99
[2023-05-15 07:35] VITALS: BP 128/74; TEMP 98.1; O2SAT 99
[2023-05-15] MEDS: PROSOURCE / PROSTAT (PYXIS) 30 ML UDC GT SCH (08:00)
[2023-05-15 10:45] VITALS: O2SAT 100
[2023-05-15 21:07] VITALS: BP 140/75; TEMP 98.1; O2SAT 98
[2023-05-15 22:55] VITALS: O2SAT 100
[2023-05-15 22:56] VITALS: O2SAT 99
[2023-05-16 07:38] VITALS: BP 123/76; TEMP 98.2; O2SAT 99
[2023-05-16 07:45] LABS: BASOPHILS % (AUTO) 0.5 % (0.0-2.0); EOSINOPHILS # (AUTO) 0.2 K/uL (0.0-0.7); EOSINOPHILS % (AUTO) 1.9 % (0.0-6.0); HEMATOCRIT 35 % (39-51); HEMOGLOBIN 10.4 g/dL (13.5-17.5); LYMPHOCYTES # (AUTO) 1.1 K/uL (0.8-4.8); LYMPHOCYTES % (AUTO) 12.8 % (20.0-44.0); MEAN CORPUSCULAR HEMOGLOBIN 24 PG (26.0-33.0); MEAN CORPUSCULAR HGB CONC 30 g/dl (31.0-36.0); MEAN CORPUSCULAR VOLUME 81 fL (80-96); MONOCYTES # (AUTO) 1.1 K/uL (0.1-1.30); MONOCYTES % (AUTO) 12.2 % (2.0-12.0); NEUTROPHILS # (AUTO) 6.3 K/uL (1.8-8.9); NEUTROPHILS % (AUTO) 72.6 % (43.0-81.0); PLATELET COUNT (AUTO) 661 K/uL (150-450); RED BLOOD CELL COUNT(AUTO) 4.35 MIL/uL (4.5-6.0); RED CELL DISTRIBUTION WIDTH 23.6 % (11.5-15.0); WHITE BLOOD COUNT (AUTO) 8.7 K/uL (4.3-11.0)
[2023-05-16 09:09] LABS: ALBUMIN 2.1 g/dL (3.4-5.0); BILIRUBIN,TOTAL 0.2 mg/dL (0.2-1.0); CALCIUM, SERUM 9.3 mg/dL (8.5-10.1); CREATININE 0.6 mg/dL (0.6-1.3); POTASSIUM 4.1 mmol/L (3.5-5.1); TOTAL PROTEIN, SERUM 9.2 g/dL (6.4-8.2)
[2023-05-16 10:28] VITALS: O2SAT 99
[2023-05-16 10:29] VITALS: O2SAT 99
[2023-05-16 19:48] VITALS: BP 132/87; TEMP 97.9; O2SAT 98
[2023-05-16 23:17] VITALS: O2SAT 99
[2023-05-17 07:52] VITALS: BP 114/77; TEMP 97.9; O2SAT 98
[2023-05-17 10:06] VITALS: O2SAT 99
[2023-05-17 10:48] VITALS: O2SAT 99
[2023-05-17 11:17] VITALS: O2SAT 99
[2023-05-17 20:07] VITALS: BP 138/83; TEMP 97.7; O2SAT 99
[2023-05-17 22:37] VITALS: O2SAT 99
[2023-05-18 08:43] VITALS: BP 130/69; TEMP 98; O2SAT 95
[2023-05-18 10:14] VITALS: O2SAT 98
[2023-05-18 20:00] VITALS: BP 134/71; TEMP 98.1; O2SAT 99
[2023-05-19] VITALS (7 sets, daily range): BP systolic 131–141; BP diastolic 78–79; TEMP 97.9–98; O2SAT 97–100
[2023-05-19 09:05] LABS: BASOPHILS % (AUTO) 0.5 % (0.0-2.0); EOSINOPHILS # (AUTO) 0.1 K/uL (0.0-0.7); HEMATOCRIT 33 % (39-51); HEMOGLOBIN 10.2 g/dL (13.5-17.5); LYMPHOCYTES # (AUTO) 1.3 K/uL (0.8-4.8); MEAN CORPUSCULAR HEMOGLOBIN 25 PG (26.0-33.0); MEAN CORPUSCULAR HGB CONC 31 g/dl (31.0-36.0); MEAN CORPUSCULAR VOLUME 80 fL (80-96); MONOCYTES # (AUTO) 0.8 K/uL (0.1-1.30); MONOCYTES % (AUTO) 10.8 % (2.0-12.0); NEUTROPHILS # (AUTO) 4.9 K/uL (1.8-8.9); NEUTROPHILS % (AUTO) 68.7 % (43.0-81.0); PLATELET COUNT (AUTO) 583 K/uL (150-450); RED BLOOD CELL COUNT(AUTO) 4.11 MIL/uL (4.5-6.0); RED CELL DISTRIBUTION WIDTH 23.8 % (11.5-15.0); WHITE BLOOD COUNT (AUTO) 7.1 K/uL (4.3-11.0)
[2023-05-19 09:24] LABS: ALBUMIN 2.2 g/dL (3.4-5.0); BILIRUBIN,TOTAL 0.2 mg/dL (0.2-1.0); CALCIUM, SERUM 9.3 mg/dL (8.5-10.1); CREATININE 0.8 mg/dL (0.6-1.3); POTASSIUM 4.9 mmol/L (3.5-5.1); TOTAL PROTEIN, SERUM 9.3 g/dL (6.4-8.2)
[2023-05-19 09:44] LABS: INR 1.18 (0.91-1.10); PROTHROMBIN TIME 12.4 SECS (9.2-11.1)
[2023-05-19] MEDS: IV D5/ 0.9% NACL 1,000 ML IV PRN (16:00)
[2023-05-20 08:00] VITALS: BP 140/96; TEMP 98.4; O2SAT 96
[2023-05-20 11:07] VITALS: O2SAT 100
[2023-05-20 11:08] VITALS: O2SAT 100
[2023-05-20 20:00] VITALS: BP 131/79; TEMP 98.3; O2SAT 99
[2023-05-20 22:59] VITALS: O2SAT 99
[2023-05-21 07:17] VITALS: BP 141/86; TEMP 98; O2SAT 100
[2023-05-21 09:32] VITALS: O2SAT 99
[2023-05-21 12:17] VITALS: O2SAT 100
[2023-05-21 21:42] VITALS: BP 136/78; TEMP 98.7; O2SAT 100
[2023-05-21 23:05] VITALS: O2SAT 99
[2023-05-22 07:30] VITALS: BP 137/77; TEMP 98; O2SAT 99
[2023-05-22 10:49] VITALS: O2SAT 100
[2023-05-22 10:52] VITALS: O2SAT 100
[2023-05-22 20:18] VITALS: BP 127/89; TEMP 98; O2SAT 98
[2023-05-22] MEDS: MELATONIN 3 MG TABLET GT PRN (22:00)
[2023-05-22 22:41] VITALS: O2SAT 100
[2023-05-22 22:42] VITALS: O2SAT 100
[2023-05-23 07:42] VITALS: BP 150/90; TEMP 96.7; O2SAT 99
[2023-05-23 11:00] VITALS: O2SAT 98
[2023-05-23 11:01] VITALS: O2SAT 98
[2023-05-23 19:09] VITALS: BP 134/81; TEMP 97.9; O2SAT 100
[2023-05-23 23:20] VITALS: O2SAT 100
[2023-05-24 08:17] VITALS: BP 104/76; TEMP 96.7; O2SAT 100
[2023-05-24 10:53] VITALS: O2SAT 100
[2023-05-24 19:36] VITALS: BP 126/89; TEMP 97.8; O2SAT 99
[2023-05-24 23:03] VITALS: O2SAT 99
[2023-05-25 07:53] VITALS: BP 148/79; TEMP 97.4; O2SAT 100
[2023-05-25 10:52] VITALS: O2SAT 97
[2023-05-25 10:53] VITALS: O2SAT 97
[2023-05-25 19:52] VITALS: BP 136/81; TEMP 98.2; O2SAT 100
[2023-05-25 22:34] VITALS: O2SAT 100
[2023-05-26 08:43] VITALS: BP 133/79; TEMP 98.7; O2SAT 100
[2023-05-26 10:47] VITALS: O2SAT 100
[2023-05-26 10:48] VITALS: O2SAT 99
[2023-05-26 19:27] VITALS: BP 133/75; TEMP 98; O2SAT 99
[2023-05-26 23:04] VITALS: O2SAT 100
[2023-05-26 23:13] VITALS: O2SAT 100
[2023-05-27 07:00] VITALS: BP 107/57; TEMP 98; O2SAT 100
[2023-05-27 09:55] VITALS: O2SAT 100
[2023-05-27 10:02] VITALS: O2SAT 99
[2023-05-27 19:21] VITALS: BP 118/72; TEMP 98; O2SAT 99
[2023-05-27 23:18] VITALS: O2SAT 100
[2023-05-28] MEDS: ACETAMINOPHEN 650 MG/20.3 ML UDC GT PRN (00:27)
[2023-05-28] MEDS: VANCOMYCIN HCL 1 GM in IV D5W 260 ML IV ONE (00:30)
[2023-05-28] MEDS: CEFTRIAXONE 1 G in IV D5W 50 ML IV SCH (01:30)
[2023-05-28 07:27] LABS: CALCIUM, SERUM 9.1 mg/dL (8.5-10.1); CREATININE 0.9 mg/dL (0.6-1.3); POTASSIUM 4.8 mmol/L (3.5-5.1)
[2023-05-28 08:04] VITALS: BP 128/63; TEMP 97.5; O2SAT 100
[2023-05-28 12:49] VITALS: O2SAT 99
[2023-05-28] MEDS: VANCOMYCIN 1 GM in IV D5W 250ml IV SCH (14:00)
[2023-05-28] MEDS: BISACODYL SUPP (10 MG) 10 MG/SUPP.RECT SUPP.RECT RC PRN (17:09)
[2023-05-28 19:41] VITALS: BP 121/76; TEMP 98; O2SAT 100
[2023-05-28 22:43] VITALS: O2SAT 100
[2023-05-29 09:13] VITALS: BP 136/75; TEMP 98; O2SAT 98
[2023-05-29 10:18] VITALS: O2SAT 100
[2023-05-29 20:00] VITALS: BP 140/71; TEMP 98.8; O2SAT 100
[2023-05-29 22:53] VITALS: O2SAT 100
[2023-05-30 02:03] LABS: CALCIUM, SERUM 9.2 mg/dL (8.5-10.1); CREATININE 0.8 mg/dL (0.6-1.3); POTASSIUM 4.7 mmol/L (3.5-5.1)
[2023-05-30 07:34] VITALS: BP 130/71; TEMP 98.6; O2SAT 100
[2023-05-30 10:13] VITALS: O2SAT 99
[2023-05-30] MEDS: VANCOMYCIN 1.25 GM in IV D5W 250 ML IV SCH (17:48)
[2023-05-30 20:56] VITALS: BP 113/79; TEMP 98; O2SAT 100
[2023-05-30 23:05] VITALS: O2SAT 99
[2023-05-31 07:13] VITALS: BP 127/71; TEMP 98.4; O2SAT 100
[2023-05-31 10:52] VITALS: O2SAT 100
[2023-05-31 10:53] VITALS: O2SAT 100
[2023-05-31 21:41] VITALS: BP 129/77; TEMP 98.6; O2SAT 99
[2023-05-31 23:14] VITALS: O2SAT 100
[2023-05-31 23:15] VITALS: O2SAT 99
[2023-06-01 07:41] VITALS: BP 143/79; TEMP 97.6; O2SAT 99
[2023-06-01 10:13] VITALS: O2SAT 99
[2023-06-01 18:21] LABS: CREATININE 0.8 mg/dL (0.6-1.3)
[2023-06-01 20:00] VITALS: BP 136/82; TEMP 97.6; O2SAT 100
[2023-06-01 22:23] VITALS: O2SAT 100
[2023-06-02 08:51] VITALS: BP 136/67; TEMP 96.7; O2SAT 99
[2023-06-02 10:51] VITALS: O2SAT 99
[2023-06-02 11:08] VITALS: O2SAT 99
[2023-06-02 21:33] VITALS: BP 135/78; TEMP 97.8; O2SAT 99
[2023-06-02 23:51] VITALS: O2SAT 99
[2023-06-03 07:37] VITALS: BP 135/83; TEMP 97.8; O2SAT 100
[2023-06-03 10:35] VITALS: O2SAT 100
[2023-06-03 10:36] VITALS: O2SAT 100
[2023-06-03 21:20] VITALS: BP 136/73; TEMP 97.3; O2SAT 99
[2023-06-03 22:47] VITALS: O2SAT 99
[2023-06-04 07:12] VITALS: BP 134/73; TEMP 97; O2SAT 98
[2023-06-04 10:59] VITALS: O2SAT 98
[2023-06-04 20:23] VITALS: BP 133/82; TEMP 97.2; O2SAT 100
[2023-06-04 22:21] VITALS: O2SAT 99
[2023-06-04 22:22] VITALS: O2SAT 99
[2023-06-05 08:02] VITALS: BP 127/82; TEMP 97.6; O2SAT 99
[2023-06-05 10:26] VITALS: O2SAT 97
[2023-06-05 19:26] VITALS: BP 129/67; TEMP 98.3; O2SAT 99
[2023-06-05 22:57] VITALS: O2SAT 100
[2023-06-06 08:17] VITALS: BP 140/83; TEMP 97.3; O2SAT 100
[2023-06-06 10:17] LABS: CALCIUM, SERUM 9.3 mg/dL (8.5-10.1); CREATININE 0.7 mg/dL (0.6-1.3); POTASSIUM 4.7 mmol/L (3.5-5.1)
[2023-06-06 10:24] LABS: BASOPHILS % (AUTO) 0.4 % (0.0-2.0); EOSINOPHILS # (AUTO) 0.2 K/uL (0.0-0.7); EOSINOPHILS % (AUTO) 4.2 % (0.0-6.0); HEMATOCRIT 28 % (39-51); HEMOGLOBIN 8.5 g/dL (13.5-17.5); LYMPHOCYTES # (AUTO) 0.6 K/uL (0.8-4.8); LYMPHOCYTES % (AUTO) 13.4 % (20.0-44.0); MEAN CORPUSCULAR HEMOGLOBIN 24 PG (26.0-33.0); MEAN CORPUSCULAR HGB CONC 31 g/dl (31.0-36.0); MEAN CORPUSCULAR VOLUME 79 fL (80-96); MONOCYTES # (AUTO) 0.4 K/uL (0.1-1.30); NEUTROPHILS # (AUTO) 3.4 K/uL (1.8-8.9); PLATELET COUNT (AUTO) 125 K/uL (150-450); RED BLOOD CELL COUNT(AUTO) 3.51 MIL/uL (4.5-6.0); RED CELL DISTRIBUTION WIDTH 24.3 % (11.5-15.0); WHITE BLOOD COUNT (AUTO) 4.6 K/uL (4.3-11.0)
[2023-06-06 10:56] VITALS: O2SAT 99
[2023-06-06 10:57] VITALS: O2SAT 99
[2023-06-06 19:55] VITALS: BP 123/74; TEMP 97.6; O2SAT 98
[2023-06-06 22:32] VITALS: O2SAT 100
[2023-06-07 09:04] VITALS: BP 140/81; TEMP 97.3; O2SAT 100
[2023-06-07 10:17] VITALS: O2SAT 100; O2SAT 98
[2023-06-07 19:55] VITALS: BP 145/81; TEMP 97.2; O2SAT 100
[2023-06-07 22:33] VITALS: O2SAT 100
[2023-06-08 07:39] VITALS: BP 144/70; TEMP 97.5; O2SAT 100
[2023-06-08 10:07] VITALS: O2SAT 99
[2023-06-08 19:42] VITALS: BP 138/85; TEMP 97.6; O2SAT 100
[2023-06-08 22:33] VITALS: O2SAT 98
[2023-06-08 22:34] VITALS: O2SAT 100
[2023-06-09 08:38] VITALS: BP 142/73; TEMP 97.7; O2SAT 99
[2023-06-09 11:18] VITALS: O2SAT 98
[2023-06-09 11:19] VITALS: O2SAT 98
[2023-06-09 19:22] VITALS: BP 136/74; TEMP 97.9; O2SAT 100
[2023-06-09 22:17] VITALS: O2SAT 100
[2023-06-10 07:30] VITALS: BP 145/85; TEMP 98.2; O2SAT 100
[2023-06-10 10:45] VITALS: O2SAT 100
[2023-06-10 19:43] VITALS: BP 144/73; TEMP 97.8; O2SAT 99
[2023-06-10 22:49] VITALS: O2SAT 99
[2023-06-11 07:03] VITALS: BP 151/76; TEMP 98.8; O2SAT 99
[2023-06-11 10:34] VITALS: O2SAT 100
[2023-06-11 10:35] VITALS: O2SAT 100
[2023-06-11 19:11] VITALS: BP 137/85; TEMP 97.2; O2SAT 100
[2023-06-11 22:56] VITALS: O2SAT 100
[2023-06-12 07:47] VITALS: BP 131/85; TEMP 98.1; O2SAT 97
[2023-06-12 10:14] VITALS: O2SAT 99
[2023-06-12] MEDS: MAGNESIUM HYDROXIDE 30 ML UDC PO PRN (19:13)
[2023-06-12 20:11] VITALS: BP 144/90; TEMP 97.2; O2SAT 95
[2023-06-12 22:50] VITALS: O2SAT 100
[2023-06-13 07:17] VITALS: BP 151/70; TEMP 98.8; O2SAT 97
[2023-06-13 10:17] VITALS: O2SAT 99
[2023-06-13 19:30] VITALS: BP 127/69; TEMP 97.4; O2SAT 96
[2023-06-13 23:31] VITALS: O2SAT 98
[2023-06-14 07:11] VITALS: BP 154/76; TEMP 98.8; O2SAT 98
[2023-06-14 10:43] VITALS: O2SAT 100
[2023-06-14 20:00] VITALS: BP 131/69; TEMP 98; O2SAT 99
[2023-06-14 22:55] VITALS: O2SAT 98
[2023-06-15 07:38] VITALS: BP 137/79; TEMP 97.5; O2SAT 97
[2023-06-15 10:34] VITALS: O2SAT 98
[2023-06-15 20:00] VITALS: BP 128/65; TEMP 98.4; O2SAT 99
[2023-06-15 22:33] VITALS: O2SAT 99
[2023-06-16 07:50] VITALS: BP_SYST 141; BP_SYST 165; BP_DIAS 76; BP_DIAS 78; TEMP 97.5; O2SAT 98
[2023-06-16 08:01] LABS: BASOPHILS % (AUTO) 0.3 % (0.0-2.0); EOSINOPHILS # (AUTO) 0.4 K/uL (0.0-0.7); HEMATOCRIT 24 % (39-51); HEMOGLOBIN 7.6 g/dL (13.5-17.5); LYMPHOCYTES # (AUTO) 0.6 K/uL (0.8-4.8); LYMPHOCYTES % (AUTO) 7.2 % (20.0-44.0); MEAN CORPUSCULAR HEMOGLOBIN 24 PG (26.0-33.0); MEAN CORPUSCULAR HGB CONC 31 g/dl (31.0-36.0); MEAN CORPUSCULAR VOLUME 78 fL (80-96); MONOCYTES # (AUTO) 0.8 K/uL (0.1-1.30); MONOCYTES % (AUTO) 8.8 % (2.0-12.0); NEUTROPHILS # (AUTO) 7.1 K/uL (1.8-8.9); NEUTROPHILS % (AUTO) 79.7 % (43.0-81.0); PLATELET COUNT (AUTO) 320 K/uL (150-450); RED BLOOD CELL COUNT(AUTO) 3.12 MIL/uL (4.5-6.0); RED CELL DISTRIBUTION WIDTH 23.6 % (11.5-15.0); WHITE BLOOD COUNT (AUTO) 8.9 K/uL (4.3-11.0)
[2023-06-16 08:18] LABS: CALCIUM, SERUM 9.5 mg/dL (8.5-10.1); CREATININE 0.7 mg/dL (0.6-1.3); MAGNESIUM 1.8 mg/dL (1.8-2.4); POTASSIUM 4.7 mmol/L (3.5-5.1)
[2023-06-16 08:31] LABS: THYROID STIMULATING HORMONE 3.346 uIU/mL (0.358-3.74)
[2023-06-16 11:16] VITALS: O2SAT 100; O2SAT 98
[2023-06-16] MEDS: JEVITY 1.2 CAL 1,000 ML BOTTLE GT PRN (13:24)
[2023-06-16 20:42] VITALS: BP 140/74; TEMP 97; O2SAT 95
[2023-06-17 00:13] VITALS: O2SAT 99
[2023-06-17] MEDS: LORAZEPAM INJ 2 MG/ML VIAL IV PRN (01:44)
[2023-06-17 07:00] VITALS: BP 136/67; TEMP 98.2; O2SAT 98
[2023-06-17 11:52] VITALS: O2SAT 99
[2023-06-17 12:09] VITALS: O2SAT 100
[2023-06-17 20:46] VITALS: BP 128/82; TEMP 97.2; O2SAT 100
[2023-06-17 22:35] VITALS: O2SAT 100
[2023-06-18 07:15] VITALS: BP 133/69; TEMP 98.2; O2SAT 100
[2023-06-18 10:38] VITALS: O2SAT 100
[2023-06-18 19:07] VITALS: BP 113/60; TEMP 97.2; O2SAT 100
[2023-06-18] MEDS: TRIAMCINOLONE ACETONIDE 0.1% CR 15 GM TUBE TP SCH (21:38)
[2023-06-18 22:41] VITALS: O2SAT 100
[2023-06-19 07:40] VITALS: BP 128/75; TEMP 96.6; O2SAT 99
[2023-06-19 11:00] VITALS: O2SAT 100; O2SAT 98
[2023-06-19] MEDS: LEVETIRACETAM SOL (5 ML) 100 MG/ML UDC GT SCH (12:53)
[2023-06-19] MEDS: LORAZEPAM 1 MG TABLET GT PRN (12:58)
[2023-06-19 19:25] VITALS: BP 112/59; TEMP 97; O2SAT 99
[2023-06-19] MEDS: SENNOSIDES 8.6 MG TABLET PO SCH (21:26)
[2023-06-19 23:38] VITALS: O2SAT 100
[2023-06-20 07:12] VITALS: BP 119/60; TEMP 98.1; O2SAT 96
[2023-06-20 10:18] VITALS: O2SAT 98
[2023-06-20 10:19] VITALS: O2SAT 98
[2023-06-20 19:19] VITALS: BP 122/69; TEMP 97.4; O2SAT 97
[2023-06-20 23:36] VITALS: O2SAT 95; O2SAT 96
[2023-06-21 07:25] VITALS: BP 118/70; TEMP 98.3; O2SAT 96
[2023-06-21 10:14] VITALS: O2SAT 98
[2023-06-21 18:08] LABS: BASOPHILS # (AUTO) 0.1 K/uL (0.0-0.2); BASOPHILS % (AUTO) 0.6 % (0.0-2.0); EOSINOPHILS # (AUTO) 0.3 K/uL (0.0-0.7); EOSINOPHILS % (AUTO) 3.5 % (0.0-6.0); HEMATOCRIT 26 % (39-51); HEMOGLOBIN 7.8 g/dL (13.5-17.5); LYMPHOCYTES # (AUTO) 0.5 K/uL (0.8-4.8); LYMPHOCYTES % (AUTO) 5.3 % (20.0-44.0); MEAN CORPUSCULAR HEMOGLOBIN 24 PG (26.0-33.0); MEAN CORPUSCULAR HGB CONC 30 g/dl (31.0-36.0); MEAN CORPUSCULAR VOLUME 79 fL (80-96); MONOCYTES # (AUTO) 0.5 K/uL (0.1-1.30); MONOCYTES % (AUTO) 4.8 % (2.0-12.0); NEUTROPHILS # (AUTO) 8.4 K/uL (1.8-8.9); NEUTROPHILS % (AUTO) 85.8 % (43.0-81.0); PLATELET COUNT (AUTO) 406 K/uL (150-450); RED BLOOD CELL COUNT(AUTO) 3.28 MIL/uL (4.5-6.0); RED CELL DISTRIBUTION WIDTH 23.8 % (11.5-15.0); WHITE BLOOD COUNT (AUTO) 9.8 K/uL (4.3-11.0)
[2023-06-21 18:49] LABS: ANISOCYTOSIS 1+; BAND % (MANUAL) 3 % (0.0-5.0); EOSINOPHILS % (MANUAL) 1 % (0-4); LYMPHOCYTES % (MANUAL) 10 % (16-48); MONOCYTES % (MANUAL) 4 % (0-11.0); NEUTROPHILS % (MANUAL) 82 (42-76); PLATELET ESTIMATE ADEQU; ROULEAUX 1+; STOMATOCYTES 1+; TARGET CELLS 1+
[2023-06-21] MEDS: CEFEPIME 2 GM in IV D5W 100 ML IV SCH (19:00)
[2023-06-21 23:04] VITALS: O2SAT 97
[2023-06-22 07:29] VITALS: BP 122/78; TEMP 98.8; O2SAT 99
[2023-06-22 10:12] VITALS: O2SAT 98
[2023-06-22 20:00] VITALS: BP 124/65; TEMP 98; O2SAT 99
[2023-06-22] MEDS: TOBRAMYCIN/DEXAMETH OPHTH OINT 3.5 GM TUBE EACHEYE SCH (21:44)
[2023-06-22] MEDS: SENNOSIDES 8.6 MG TABLET GT SCH (21:45)
[2023-06-23 02:17] VITALS: O2SAT 98
[2023-06-23 07:24] VITALS: BP 134/68; TEMP 99; O2SAT 98
[2023-06-23] MEDS: MAGNESIUM HYDROXIDE 30 ML UDC GT PRN (09:09)
[2023-06-23 10:59] VITALS: O2SAT 99
[2023-06-23 20:18] VITALS: BP 115/67; TEMP 98; O2SAT 99
[2023-06-23] MEDS: LACOSAMIDE ORAL SOLN 50 MG/5 ML UDC GT SCH (21:36)
[2023-06-23 23:32] VITALS: O2SAT 98
[2023-06-24 08:20] VITALS: BP 101/60; TEMP 99.7; O2SAT 99
[2023-06-24 10:34] VITALS: O2SAT 97
[2023-06-24 10:35] VITALS: O2SAT 97
[2023-06-24] MEDS: ONDANSETRON 4 MG TAB.RAPDIS GT PRN (17:41)
[2023-06-24 20:19] VITALS: BP 94/62; TEMP 100.8; O2SAT 97
[2023-06-24] MEDS: METOCLOPRAMIDE HCL 10 MG/2 ML VIAL IV SCH (21:00)
[2023-06-24] MEDS: METRONIDAZOLE 500MG/ NS 100ML 500 MG in PREMIX 1 EA IV SCH (21:00)
[2023-06-24] MEDS: ACETAMINOPHEN 650 MG/20.3 ML UDC GT PRN (21:21)
[2023-06-24] MEDS: IV 1/2NS 1000 ML 1,000 ML IV PRN (21:33)
[2023-06-24] MEDS ORDERED: LEVOFLOXACIN 250 MG /D5W 50 ML 100 ML IV ONE (21:57)
[2023-06-24] MEDS: LEVOFLOXACIN 500 MG /D5W 100ML 500 MG in PREMIX 1 EA IV SCH (22:00)
[2023-06-24 23:15] VITALS: TEMP 100.9; O2SAT 98
[2023-06-25 02:20] VITALS: TEMP 99.9
[2023-06-25] MEDS ORDERED: METRONIDAZOLE 500MG/ NS 100ML 500 MG in PREMIX 1 EA IV SCH (07:30)
[2023-06-25] MEDS: METRONIDAZOLE 500MG/ NS 100ML 500 MG in PREMIX 1 EA IV SCH (09:45)
[2023-06-25 10:13] VITALS: O2SAT 100
[2023-06-25 14:22] VITALS: BP 101/56; TEMP 97.3; O2SAT 99
[2023-06-25 19:16] VITALS: BP 97/61; TEMP 98; O2SAT 100
[2023-06-25] MEDS: LEVOFLOXACIN 500 MG /D5W 100ML 500 MG in PREMIX 1 EA IV SCH (22:02)
[2023-06-25 23:17] VITALS: O2SAT 100
[2023-06-25 23:19] VITALS: O2SAT 100
[2023-06-26 10:10] VITALS: O2SAT 100
[2023-06-26] MEDS: JEVITY 1.2 CAL 1,000 ML BOTTLE GT PRN (17:10)
[2023-06-26 19:11] VITALS: BP 104/60; TEMP 98.3; O2SAT 99
[2023-06-26 23:28] VITALS: O2SAT 100
[2023-06-26 23:29] VITALS: O2SAT 100
[2023-06-27] MEDS: METOCLOPRAMIDE HCL 10 MG/2 ML VIAL IV SCH
[2023-06-27 07:40] VITALS: BP 121/59; TEMP 98; O2SAT 100
[2023-06-27 10:15] VITALS: O2SAT 99
[2023-06-27 19:38] VITALS: BP 97/58; TEMP 97; O2SAT 99
[2023-06-27 22:57] VITALS: O2SAT 98
[2023-06-27 22:58] VITALS: O2SAT 98
[2023-06-28 10:18] VITALS: O2SAT 98
[2023-06-28 20:05] VITALS: BP 131/66; TEMP 97.3; O2SAT 100
[2023-06-28 22:56] VITALS: O2SAT 98
[2023-06-29 08:09] VITALS: BP 111/59; TEMP 98.1; O2SAT 100
[2023-06-29 10:27] VITALS: O2SAT 98
[2023-06-29 20:11] VITALS: BP 115/66; TEMP 97.1; O2SAT 100
[2023-06-29 23:04] VITALS: O2SAT 94; O2SAT 96
[2023-06-30 07:08] LABS: BASOPHILS # (AUTO) 0.1 K/uL (0.0-0.2); BASOPHILS % (AUTO) 0.7 % (0.0-2.0); EOSINOPHILS # (AUTO) 0.3 K/uL (0.0-0.7); EOSINOPHILS % (AUTO) 3.9 % (0.0-6.0); HEMATOCRIT 25 % (39-51); HEMOGLOBIN 7.5 g/dL (13.5-17.5); LYMPHOCYTES # (AUTO) 0.8 K/uL (0.8-4.8); LYMPHOCYTES % (AUTO) 9.7 % (20.0-44.0); MEAN CORPUSCULAR HEMOGLOBIN 24 PG (26.0-33.0); MEAN CORPUSCULAR HGB CONC 31 g/dl (31.0-36.0); MEAN CORPUSCULAR VOLUME 80 fL (80-96); MONOCYTES # (AUTO) 0.9 K/uL (0.1-1.30); NEUTROPHILS # (AUTO) 6.4 K/uL (1.8-8.9); NEUTROPHILS % (AUTO) 74.7 % (43.0-81.0); PLATELET COUNT (AUTO) 557 K/uL (150-450); RED BLOOD CELL COUNT(AUTO) 3.08 MIL/uL (4.5-6.0); RED CELL DISTRIBUTION WIDTH 23.7 % (11.5-15.0); WHITE BLOOD COUNT (AUTO) 8.6 K/uL (4.3-11.0)
[2023-06-30 08:14] VITALS: BP 118/69; TEMP 97; O2SAT 99
[2023-06-30 10:20] VITALS: O2SAT 98
[2023-06-30 10:21] VITALS: O2SAT 98
[2023-06-30 20:11] VITALS: BP 113/68; TEMP 97.1; O2SAT 98
[2023-07-01 02:45] VITALS: O2SAT 98
[2023-07-01 07:56] VITALS: BP 110/66; TEMP 97.3; O2SAT 99
[2023-07-01 11:28] VITALS: O2SAT 99
[2023-07-01 11:29] VITALS: O2SAT 98
[2023-07-01 20:08] VITALS: BP 124/71; TEMP 97; O2SAT 97
[2023-07-01 22:49] VITALS: O2SAT 100
[2023-07-02 07:57] VITALS: BP 107/62; TEMP 97.4; O2SAT 100
[2023-07-02 10:47] VITALS: O2SAT 100
[2023-07-02 11:12] VITALS: O2SAT 100
[2023-07-02 19:52] VITALS: BP 115/73; TEMP 97; O2SAT 100
[2023-07-02 23:03] VITALS: O2SAT 100
[2023-07-03 08:13] VITALS: BP 114/63; TEMP 97; O2SAT 100
[2023-07-03 10:38] VITALS: O2SAT 100
[2023-07-03 19:17] VITALS: BP 99/59; TEMP 98; O2SAT 100
[2023-07-03 23:07] VITALS: O2SAT 100
[2023-07-04 08:17] VITALS: BP 123/63; TEMP 97.2; O2SAT 100
[2023-07-04 09:08] VITALS: O2SAT 100
[2023-07-04 11:37] VITALS: O2SAT 100
[2023-07-04 19:32] VITALS: BP 105/61; TEMP 97.5; O2SAT 100
[2023-07-04 22:48] VITALS: O2SAT 99
[2023-07-05 07:52] VITALS: BP 110/54; TEMP 97.4; O2SAT 99
[2023-07-05 10:01] VITALS: O2SAT 99
[2023-07-05 10:02] VITALS: O2SAT 99
[2023-07-05 19:15] VITALS: BP 100/66; TEMP 98.3; O2SAT 100
[2023-07-05 22:43] VITALS: O2SAT 100
[2023-07-06 07:45] VITALS: BP 118/63; TEMP 97.6; O2SAT 100
[2023-07-06 10:16] VITALS: O2SAT 100; O2SAT 99
[2023-07-06 21:30] VITALS: BP 118/66; TEMP 97.1; O2SAT 97
[2023-07-07] VITALS (8 sets, daily range): BP systolic 121–127; BP diastolic 75–82; TEMP 97.1–97.6; O2SAT 99–100
[2023-07-08 08:26] VITALS: BP 119/72; TEMP 97.4; O2SAT 100
[2023-07-08 11:00] VITALS: O2SAT 100
[2023-07-08 11:04] VITALS: O2SAT 100
[2023-07-08 19:34] VITALS: BP 120/81; TEMP 97; O2SAT 100
[2023-07-08 22:32] VITALS: O2SAT 100
[2023-07-09 07:53] VITALS: BP 121/89; TEMP 98.2; O2SAT 97
[2023-07-09 10:50] VITALS: O2SAT 97
[2023-07-09 19:08] VITALS: BP 120/78; TEMP 97.2; O2SAT 100
[2023-07-09 22:59] VITALS: O2SAT 100
[2023-07-10 07:54] VITALS: BP 131/78; TEMP 98.1; O2SAT 100
[2023-07-10 12:02] VITALS: O2SAT 100
[2023-07-10 12:03] VITALS: O2SAT 100
[2023-07-10 12:08] VITALS: O2SAT 100
[2023-07-10 19:58] VITALS: BP 121/68; TEMP 97; O2SAT 100
[2023-07-10 23:09] VITALS: O2SAT 100
[2023-07-11 08:20] VITALS: O2SAT 99
[2023-07-11 14:09] VITALS: O2SAT 98
[2023-07-11 19:09] VITALS: BP 104/63; TEMP 98.1; O2SAT 99
[2023-07-11 22:21] VITALS: O2SAT 100
[2023-07-12 07:41] VITALS: BP 121/62; TEMP 98.2; O2SAT 98
[2023-07-12 11:02] VITALS: O2SAT 98
[2023-07-12 20:00] VITALS: BP 115/68; TEMP 98.1; O2SAT 99
[2023-07-12 22:28] VITALS: O2SAT 100
[2023-07-12 22:30] VITALS: O2SAT 100
[2023-07-13 08:54] VITALS: BP 144/82; TEMP 98.3; O2SAT 100
[2023-07-13 10:18] VITALS: O2SAT 99
[2023-07-13 10:19] VITALS: O2SAT 99
[2023-07-13] MEDS: METOCLOPRAMIDE HCL 10 MG/10 ML UDC GT SCH (17:29)
[2023-07-13 20:00] VITALS: BP 128/72; TEMP 98.3; O2SAT 99
[2023-07-13 23:30] VITALS: O2SAT 100
[2023-07-14 07:27] VITALS: BP 109/84; TEMP 98.1; O2SAT 100
[2023-07-14 10:20] VITALS: O2SAT 100
[2023-07-14 20:01] VITALS: BP 129/79; TEMP 97; O2SAT 100
[2023-07-14 23:21] VITALS: O2SAT 100
[2023-07-14 23:22] VITALS: O2SAT 100
[2023-07-15 08:03] VITALS: BP 131/81; TEMP 99; O2SAT 100
[2023-07-15 11:14] VITALS: O2SAT 100
[2023-07-15 11:41] VITALS: O2SAT 100
[2023-07-15 19:55] VITALS: BP 95/77; TEMP 97; O2SAT 92
[2023-07-15 23:08] VITALS: O2SAT 98
[2023-07-16 07:40] VITALS: BP 127/67; TEMP 97; O2SAT 98
[2023-07-16 15:49] VITALS: O2SAT 100
[2023-07-16 17:05] VITALS: O2SAT 100
[2023-07-16 17:08] VITALS: O2SAT 100
[2023-07-16 19:59] VITALS: BP 135/75; TEMP 97; TEMP 97.3; O2SAT 100
[2023-07-16 22:50] VITALS: O2SAT 98
[2023-07-17 07:29] VITALS: BP 136/91; TEMP 98; O2SAT 99
[2023-07-17 10:22] VITALS: O2SAT 100
[2023-07-17 12:12] VITALS: O2SAT 100
[2023-07-17 19:45] VITALS: BP 120/85; TEMP 98.3; O2SAT 98
[2023-07-17 22:32] VITALS: O2SAT 99
[2023-07-18 07:51] VITALS: BP 125/75; TEMP 97.4; O2SAT 97
[2023-07-18 10:11] VITALS: O2SAT 97
[2023-07-18 19:52] VITALS: BP 135/85; TEMP 97.4; O2SAT 99
[2023-07-18 22:35] VITALS: O2SAT 99
[2023-07-19 07:42] VITALS: BP 126/80; TEMP 97.6; O2SAT 98
[2023-07-19 09:33] VITALS: O2SAT 98
[2023-07-19 12:05] VITALS: O2SAT 98
[2023-07-19 19:55] VITALS: BP 132/86; TEMP 97.6; O2SAT 98
[2023-07-19 22:31] VITALS: O2SAT 99
[2023-07-20 07:55] VITALS: BP 142/80; TEMP 97.6; O2SAT 100
[2023-07-20 10:47] VITALS: O2SAT 99
[2023-07-20 20:25] VITALS: BP 103/84; TEMP 97.6; O2SAT 100
[2023-07-20 23:26] VITALS: O2SAT 100
[2023-07-21 07:32] VITALS: O2SAT 95
[2023-07-21 07:35] VITALS: BP 120/79; TEMP 98.1; O2SAT 95
[2023-07-21 11:37] VITALS: O2SAT 97
[2023-07-21 14:31] VITALS: O2SAT 95
[2023-07-21 20:59] VITALS: BP 138/77; TEMP 97.5; O2SAT 100
[2023-07-22 07:40] VITALS: BP 116/99; TEMP 97.4; O2SAT 99
[2023-07-22 11:16] VITALS: O2SAT 97
[2023-07-22 11:17] VITALS: O2SAT 97
[2023-07-22 19:25] VITALS: BP 145/69; TEMP 97.4; O2SAT 99
[2023-07-22 23:06] VITALS: O2SAT 100
[2023-07-23 07:44] VITALS: BP 124/71; TEMP 97.9; O2SAT 100
[2023-07-23 10:20] VITALS: O2SAT 99
[2023-07-23 19:43] VITALS: BP 145/75; O2SAT 100
[2023-07-23 23:01] VITALS: O2SAT 100
[2023-07-24 07:32] VITALS: BP 111/65; TEMP 97.3; O2SAT 97
[2023-07-24 10:45] VITALS: O2SAT 99
[2023-07-24 16:03] VITALS: O2SAT 98
[2023-07-24 19:33] VITALS: BP 149/83; TEMP 97.1; O2SAT 99
[2023-07-24 23:04] VITALS: O2SAT 97
[2023-07-25 07:51] VITALS: BP 133/80; TEMP 99; O2SAT 98
[2023-07-25 10:56] VITALS: O2SAT 98
[2023-07-25 10:57] VITALS: O2SAT 98
[2023-07-25 18:11] LABS: BASOPHILS % (AUTO) 0.2 % (0.0-2.0); EOSINOPHILS # (AUTO) 0.3 K/uL (0.0-0.7); HEMATOCRIT 29 % (39-51); HEMOGLOBIN 8.7 g/dL (13.5-17.5); LYMPHOCYTES # (AUTO) 0.6 K/uL (0.8-4.8); LYMPHOCYTES % (AUTO) 9.8 % (20.0-44.0); MEAN CORPUSCULAR HEMOGLOBIN 25 PG (26.0-33.0); MEAN CORPUSCULAR HGB CONC 30 g/dl (31.0-36.0); MEAN CORPUSCULAR VOLUME 81 fL (80-96); MONOCYTES # (AUTO) 0.5 K/uL (0.1-1.30); MONOCYTES % (AUTO) 8.9 % (2.0-12.0); NEUTROPHILS # (AUTO) 4.3 K/uL (1.8-8.9); NEUTROPHILS % (AUTO) 75.1 % (43.0-81.0); PLATELET COUNT (AUTO) 231 K/uL (150-450); RED BLOOD CELL COUNT(AUTO) 3.55 MIL/uL (4.5-6.0); RED CELL DISTRIBUTION WIDTH 26.2 % (11.5-15.0); WHITE BLOOD COUNT (AUTO) 5.8 K/uL (4.3-11.0)
[2023-07-25 18:21] LABS: CALCIUM, SERUM 8.6 mg/dL (8.5-10.1); CREATININE 0.7 mg/dL (0.6-1.3); POTASSIUM 5.7 mmol/L (3.5-5.1)
[2023-07-25 20:19] VITALS: BP 136/76; TEMP 97.8; O2SAT 100
[2023-07-25 20:46] LABS: APPEARANCE,URINE SLIGHTLY CLOUDY (CLEAR); BILIRUBIN,URINE NEGATIVE (NEGATIVE); BLOOD, URINE 3+ Ery/uL (NEGATIVE); COLOR,URINE YELLOW (YELLOW); KETONES,URINE NEGATIVE (NEGATIVE); LEUKOCYTE ESTERASE ,URINE 2+ (NEGATIVE); NITRITE, URINE NEGATIVE (NEGATIVE); PROTEIN,URINE 2+ mg/dl (NEGATIVE); UGLUCOSE NEGATIVE (NEGATIVE); UROBILINOGEN,URINE 0.2 EU/dL (0.2)
[2023-07-25 20:56] LABS: ADD URINE CULTURE YES; BACTERIA,URINE 2+ /HPF (None Seen); RBC,URINE 51-80 /HPF (0-2); SQUAMOUS EPITHELIAL CELL,UR 0-2 /HPF (None Seen); WBC,URINE 21-50 /HPF (0-3)
[2023-07-25] MEDS: TOBRAMYCIN/DEXAMETH OPHTH DORPS 2.5 ML BOTTLE EACHEYE SCH (21:00)
[2023-07-25 22:08] LABS: ANISOCYTOSIS 1+; EOSINOPHILS % (MANUAL) 2 % (0-4); LYMPHOCYTES % (MANUAL) 17 % (16-48); MONOCYTES % (MANUAL) 11 % (0-11.0); NEUTROPHILS % (MANUAL) 70 (42-76); PLATELET ESTIMATE ADEQU
[2023-07-25 22:09] LABS: HYPOCHROMASIA 1+; ROULEAUX 1+; TARGET CELLS 1+; TEAR DROP CELLS RARE
[2023-07-25 22:39] VITALS: O2SAT 97
[2023-07-26] MEDS: SODIUM POLYSTYRENE SULFONATE 15 G/60 ML BOTTLE PO ONE (07:00)
[2023-07-26 08:00] VITALS: BP 112/76; TEMP 97.5; O2SAT 100
[2023-07-26] MEDS: CEFTRIAXONE 1 G in IV D5W 50 ML IV SCH (08:00)
[2023-07-26 10:22] VITALS: O2SAT 96
[2023-07-26 20:00] VITALS: BP 120/73; TEMP 98; O2SAT 99
[2023-07-26 22:39] VITALS: O2SAT 97
[2023-07-27 07:53] VITALS: BP 133/85; TEMP 97.4; O2SAT 100
[2023-07-27 10:07] VITALS: O2SAT 98
[2023-07-27 20:00] VITALS: BP 118/68; TEMP 98.1; O2SAT 99
[2023-07-27 22:38] VITALS: O2SAT 97
[2023-07-27 22:39] VITALS: O2SAT 97
[2023-07-28 07:35] VITALS: BP 131/75; TEMP 97.9; O2SAT 100
[2023-07-28 10:37] VITALS: O2SAT 98
[2023-07-28 20:11] VITALS: BP 125/81; TEMP 97.9; O2SAT 98
[2023-07-28 23:12] VITALS: O2SAT 98
[2023-07-29] VITALS (7 sets, daily range): BP systolic 109–152; BP diastolic 68–91; TEMP 97.6–98.3; O2SAT 95–99
[2023-07-30 07:11] VITALS: BP 135/81; TEMP 98; O2SAT 95
[2023-07-30 14:27] VITALS: O2SAT 99
[2023-07-30 21:16] VITALS: BP 115/74; TEMP 97.2; O2SAT 98
[2023-07-30 22:37] VITALS: O2SAT 98
[2023-07-31 07:37] VITALS: BP 133/88; TEMP 97.5; O2SAT 98
[2023-07-31 10:06] VITALS: O2SAT 97
[2023-07-31] MEDS: TOBRAMYCIN/DEXAMETH OPHTH DORPS 2.5 ML BOTTLE EACHEYE SCH (13:00)
[2023-07-31 21:12] VITALS: BP 124/71; TEMP 97.2; O2SAT 99
[2023-07-31 23:50] VITALS: O2SAT 100
[2023-08-01 07:45] VITALS: BP 118/79; TEMP 97.6; O2SAT 100
[2023-08-01 10:32] VITALS: O2SAT 100
[2023-08-01 10:33] VITALS: O2SAT 100
[2023-08-01 22:51] VITALS: O2SAT 99
[2023-08-01 23:02] VITALS: BP 129/86; TEMP 98; O2SAT 99
[2023-08-02 07:51] VITALS: BP 132/78; TEMP 98; O2SAT 99
[2023-08-02 10:18] VITALS: O2SAT 100; O2SAT 99
[2023-08-02 20:02] VITALS: BP 125/72; TEMP 97.1; O2SAT 95
[2023-08-02 23:20] VITALS: O2SAT 99
[2023-08-03 08:49] VITALS: BP 126/73; TEMP 98.2; O2SAT 98
[2023-08-03 10:04] VITALS: O2SAT 100
[2023-08-03 10:05] VITALS: O2SAT 100
[2023-08-03 20:07] VITALS: BP 134/70; TEMP 98.3; O2SAT 99
[2023-08-03 22:48] VITALS: O2SAT 99
[2023-08-03 22:49] VITALS: O2SAT 99
[2023-08-04 08:05] VITALS: BP 133/84; TEMP 97; O2SAT 100
[2023-08-04 11:03] VITALS: O2SAT 100
[2023-08-04 11:04] VITALS: O2SAT 100
[2023-08-04 20:44] VITALS: BP 127/66; TEMP 98.1; O2SAT 99
[2023-08-04 23:23] VITALS: O2SAT 99
[2023-08-05 08:16] VITALS: BP 125/73; TEMP 97; O2SAT 100
[2023-08-05 10:12] VITALS: O2SAT 99
[2023-08-05 10:13] VITALS: O2SAT 100
[2023-08-05 20:00] VITALS: BP 131/82; TEMP 97.2; O2SAT 100
[2023-08-05 23:04] VITALS: O2SAT 100
[2023-08-06 08:23] VITALS: BP 110/77; TEMP 97.3; O2SAT 97
[2023-08-06 10:15] VITALS: O2SAT 98
[2023-08-06] MEDS: COVID-19 VACC, SPIKEVAX /PF 50 MCG/0.5 ML VIAL/SYR IM ONE (12:00)
[2023-08-06 22:31] VITALS: O2SAT 99
[2023-08-07 08:32] VITALS: BP 144/81; TEMP 98.6; O2SAT 100
[2023-08-07 10:20] VITALS: O2SAT 98
[2023-08-07 10:21] VITALS: O2SAT 99
[2023-08-07 19:43] VITALS: BP 134/80; TEMP 97.5; O2SAT 97
[2023-08-07 22:55] VITALS: O2SAT 99
[2023-08-08 10:11] VITALS: O2SAT 98
[2023-08-08 20:14] VITALS: BP 127/84; TEMP 97.6; O2SAT 100
[2023-08-08 22:52] VITALS: O2SAT 99
[2023-08-09 09:04] VITALS: O2SAT 98; O2SAT 99
[2023-08-09 11:15] VITALS: O2SAT 98; O2SAT 99
[2023-08-09 19:57] VITALS: BP 122/75; TEMP 97.5; O2SAT 100
[2023-08-09 22:42] VITALS: O2SAT 99
[2023-08-09 22:43] VITALS: O2SAT 99
[2023-08-10 07:43] VITALS: BP 137/74; TEMP 97.9; O2SAT 96
[2023-08-10 10:16] VITALS: O2SAT 97
[2023-08-10 10:17] VITALS: O2SAT 97
[2023-08-10 20:00] VITALS: BP 112/75; TEMP 97.6; O2SAT 99
[2023-08-10 23:04] VITALS: O2SAT 100
[2023-08-10 23:05] VITALS: O2SAT 100
[2023-08-11 08:08] VITALS: BP 128/76; TEMP 97.2; O2SAT 100
[2023-08-11 10:37] VITALS: O2SAT 99
[2023-08-11 20:13] VITALS: BP 113/82; TEMP 97.2; O2SAT 100
[2023-08-11 22:40] VITALS: O2SAT 100; O2SAT 99
[2023-08-12 08:11] VITALS: BP 132/85; TEMP 98; O2SAT 99
[2023-08-12 10:48] VITALS: O2SAT 99
[2023-08-12 20:35] VITALS: BP 131/62; TEMP 98.3; O2SAT 99
[2023-08-12 23:05] VITALS: O2SAT 100
[2023-08-13 07:49] VITALS: BP 131/82; TEMP 98.5; O2SAT 100
[2023-08-13 10:09] VITALS: O2SAT 100
[2023-08-13 11:59] VITALS: O2SAT 100
[2023-08-13 12:51] VITALS: O2SAT 100
[2023-08-13 19:51] VITALS: BP 123/71; TEMP 97.2; O2SAT 100
[2023-08-13 23:02] VITALS: O2SAT 100
[2023-08-14 08:00] VITALS: BP 124/67; TEMP 98.1; O2SAT 100
[2023-08-14 11:14] VITALS: O2SAT 100
[2023-08-14 11:15] VITALS: O2SAT 100
[2023-08-14 19:17] VITALS: BP 127/69; TEMP 98.1; O2SAT 100
[2023-08-14 23:03] VITALS: O2SAT 100
[2023-08-14 23:04] VITALS: O2SAT 100
[2023-08-15 07:35] VITALS: BP 136/75; TEMP 97.9; O2SAT 100
[2023-08-15] MEDS ORDERED: DIATR MEGLU/DIATRIZOATE SODIUM 120 ML BOTTLE (GASTROGRAPHIN) ONE (10:36)
[2023-08-15 11:10] VITALS: O2SAT 100
[2023-08-15 19:25] VITALS: BP 138/86; TEMP 96.7; O2SAT 100
[2023-08-15] MEDS ORDERED: DIATR MEGLU/DIATRIZOATE SODIUM 30 ML BOTTLE (GASTROGRAPHIN) ONE (21:58)
[2023-08-15 23:09] VITALS: O2SAT 100
[2023-08-16 07:47] VITALS: BP 124/90; TEMP 98.6; O2SAT 99
[2023-08-16 11:07] VITALS: O2SAT 100
[2023-08-16 11:08] VITALS: O2SAT 100
[2023-08-16 19:12] VITALS: BP 126/89; TEMP 97.3; O2SAT 100
[2023-08-16 22:52] VITALS: O2SAT 100
[2023-08-17 08:47] VITALS: BP 133/90; TEMP 97.7; O2SAT 94
[2023-08-17 10:08] VITALS: O2SAT 100
[2023-08-17 21:49] VITALS: BP 134/75; TEMP 97.6; O2SAT 100
[2023-08-18 00:22] VITALS: O2SAT 100
[2023-08-18 07:35] VITALS: BP 134/81; TEMP 98; O2SAT 100
[2023-08-18 11:43] VITALS: O2SAT 99
[2023-08-18 19:47] VITALS: BP 132/77; O2SAT 99
[2023-08-18 23:58] VITALS: O2SAT 100
[2023-08-18 23:59] VITALS: O2SAT 100
[2023-08-19 08:00] VITALS: BP 135/86; TEMP 98.4; O2SAT 100
[2023-08-19 10:20] VITALS: O2SAT 99
[2023-08-19 19:59] VITALS: BP 127/77; TEMP 97.3; O2SAT 95
[2023-08-19 23:21] VITALS: O2SAT 98
[2023-08-20 08:10] VITALS: BP 111/63; TEMP 98.8; O2SAT 98
[2023-08-20 10:35] VITALS: O2SAT 100
[2023-08-20] MEDS: IV NS 0.9% 1,000 ML IV PRN (14:00)
[2023-08-20 16:23] LABS: BASOPHILS # (AUTO) 0.1 K/uL (0.0-0.2); BASOPHILS % (AUTO) 0.7 % (0.0-2.0); EOSINOPHILS # (AUTO) 0.2 K/uL (0.0-0.7); EOSINOPHILS % (AUTO) 2.2 % (0.0-6.0); HEMATOCRIT 28 % (39-51); HEMOGLOBIN 8.3 g/dL (13.5-17.5); LYMPHOCYTES # (AUTO) 1.5 K/uL (0.8-4.8); LYMPHOCYTES % (AUTO) 17.7 % (20.0-44.0); MEAN CORPUSCULAR HEMOGLOBIN 24 PG (26.0-33.0); MEAN CORPUSCULAR HGB CONC 30 g/dl (31.0-36.0); MEAN CORPUSCULAR VOLUME 81 fL (80-96); MONOCYTES % (AUTO) 12.7 % (2.0-12.0); NEUTROPHILS # (AUTO) 5.5 K/uL (1.8-8.9); NEUTROPHILS % (AUTO) 66.7 % (43.0-81.0); PLATELET COUNT (AUTO) 456 K/uL (150-450); RED BLOOD CELL COUNT(AUTO) 3.41 MIL/uL (4.5-6.0); RED CELL DISTRIBUTION WIDTH 25.7 % (11.5-15.0); WHITE BLOOD COUNT (AUTO) 8.3 K/uL (4.3-11.0)
[2023-08-20 16:33] LABS: ALBUMIN 2.2 g/dL (3.4-5.0); BILIRUBIN,TOTAL 0.4 mg/dL (0.2-1.0); CALCIUM, SERUM 8.8 mg/dL (8.5-10.1); CREATININE 0.9 mg/dL (0.6-1.3); POTASSIUM 4.7 mmol/L (3.5-5.1); TOTAL PROTEIN, SERUM 9.7 g/dL (6.4-8.2)
[2023-08-20 16:44] LABS: PLATELET ESTIMATE ADEQUATE
[2023-08-20 16:45] LABS: ANISOCYTOSIS 2+; HYPOCHROMASIA 1+; TARGET CELLS 1+
[2023-08-20 18:00] LABS: APPEARANCE,URINE SLIGHTLY CLOUDY (CLEAR); BILIRUBIN,URINE NEGATIVE (NEGATIVE); BLOOD, URINE TRACE-INTA Ery/uL (NEGATIVE); COLOR,URINE YELLOW (YELLOW); KETONES,URINE NEGATIVE (NEGATIVE); LEUKOCYTE ESTERASE ,URINE 1+ (NEGATIVE); NITRITE, URINE POSITIVE (NEGATIVE); PH,URINE 8.5 (5.0-8.0); PROTEIN,URINE 2+ mg/dl (NEGATIVE); UGLUCOSE NEGATIVE (NEGATIVE); UROBILINOGEN,URINE 0.2 EU/dL (0.2)
[2023-08-20 18:12] LABS: ADD URINE CULTURE YES; BACTERIA,URINE 4+ /HPF (None Seen); RBC,URINE 0-2 /HPF (0-2); SQUAMOUS EPITHELIAL CELL,UR Few /HPF (None Seen); WBC,URINE 51-80 /HPF (0-3)
[2023-08-20 19:27] VITALS: BP 131/74; TEMP 97.3; O2SAT 100
[2023-08-20 22:32] VITALS: O2SAT 100
[2023-08-21 08:27] VITALS: BP 111/77; TEMP 98.2; O2SAT 99
[2023-08-21 10:18] VITALS: O2SAT 100
[2023-08-21 19:48] VITALS: BP 131/80; TEMP 97.5; O2SAT 100
[2023-08-21 23:04] VITALS: O2SAT 100
[2023-08-22] MEDS: METOCLOPRAMIDE HCL 10 MG/10 ML UDC GT SCH (09:24)
[2023-08-22 09:27] VITALS: BP 134/69; TEMP 98.7; O2SAT 99
[2023-08-22 10:00] VITALS: BP 134/69; TEMP 98.7; O2SAT 100
[2023-08-22 10:36] VITALS: O2SAT 100
[2023-08-22 19:32] VITALS: BP 145/86; TEMP 98.2; O2SAT 100
[2023-08-22 23:17] VITALS: O2SAT 100
[2023-08-23 09:34] VITALS: BP 129/69; TEMP 98.8; O2SAT 100
[2023-08-23 10:09] VITALS: O2SAT 100
[2023-08-23 19:26] VITALS: BP 146/86; TEMP 97.9; O2SAT 100
[2023-08-23 22:39] VITALS: O2SAT 100
[2023-08-24 07:29] VITALS: BP 121/74; TEMP 98.2; O2SAT 100
[2023-08-24 10:08] VITALS: O2SAT 100
[2023-08-24 19:59] VITALS: BP 129/80; TEMP 98; O2SAT 100
[2023-08-24 22:40] VITALS: O2SAT 100
[2023-08-25 07:24] VITALS: BP 144/86; TEMP 99; O2SAT 98
[2023-08-25 10:00] VITALS: BP 144/86; TEMP 99; O2SAT 100
[2023-08-25 10:34] VITALS: O2SAT 100
[2023-08-25 10:36] VITALS: O2SAT 100
[2023-08-25 20:00] VITALS: BP_SYST 134; BP_SYST 149; BP_DIAS 79; BP_DIAS 85; TEMP 98.4; TEMP 99.3; O2SAT 100; O2SAT 97
[2023-08-25 23:37] VITALS: O2SAT 99
[2023-08-26] MEDS: JEVITY 1.2 CAL 1,000 ML BOTTLE GT PRN (06:50)
[2023-08-26 07:30] VITALS: BP 146/77; TEMP 98.4; O2SAT 97
[2023-08-26 10:40] VITALS: O2SAT 99
[2023-08-26 11:44] VITALS: O2SAT 99
[2023-08-26] MEDS: METOPROLOL TARTRATE 25 MG TABLET GT SCH (13:56)
[2023-08-26] MEDS ORDERED: MAGN400O6 GT (17:27)
[2023-08-26] MEDS ORDERED: MELA3TAB41 GT (17:27)
[2023-08-26] MEDS ORDERED: SENN-261 GT (17:27)
[2023-08-26] MEDS ORDERED: LACO200T2 GT (17:27)
[2023-08-26] MEDS ORDERED: AMIN30LI25 GT (17:27)
[2023-08-26] MEDS ORDERED: METO-295 GT (17:27)
[2023-08-26] MEDS ORDERED: LORA2VIA6 IM (17:30)
[2023-08-26] MEDS ORDERED: METOPROLOL TARTRATE 25 MG TABLET GT SCH (21:00)
[2023-08-27 05:02] LABS: ABG BASE EXCESS 2.6 mmol/L; ABG OXYGEN SATURATION 92.6 % (92.0-98.5); ABG PCO2 37.1 mmHg (35.0-45.0); ABG PH 7.469 (7.350-7.450); ABG PO2 66.9 mmHg (75.0-100.0); ABG TOTAL HEMOGLOBIN 10.4 G/dL (13.5-18.0); AaDO2 175.6 mmHg; COHb 0.5 % (0.5-1.5); MetHb 0.3 % (0.0-1.5); O2Hb 91.9 % (94.0-97.0); SITE, ABG Right Radial; VENT MODE, BG AC 10 450 40% +5
[2023-08-31] MEDS: COLISTIMETHATE SODIUM 150 MG CBA VIAL NEB SCH (09:00)
[2023-08-31] MEDS ORDERED: Sulfameth/Trimeth 800/160 Mg GT (13:14)
[2023-08-31] MEDS ORDERED: COLI150V12 NEB (13:14)
[2023-08-31] MEDS ORDERED: ASPI-1169 GT (13:14)
[2023-08-31] MEDS ORDERED: TOBR2.5D RIGHTEYE (13:15)
[2023-08-31 20:00] VITALS: BP 117/61; TEMP 97.2; O2SAT 95
[2023-08-31] MEDS ORDERED: DEXTROSE 50%-WATER 50 ML DISP.SYRIN IV PRN (20:00)
[2023-08-31] MEDS: LEVETIRACETAM SOL (5 ML) 100 MG/ML UDC GT SCH (20:00)
[2023-08-31] MEDS ORDERED: MELATONIN 3 MG TABLET GT PRN (20:00)
[2023-08-31] MEDS: SULFAMEHOX/TRIMETH 200-40MG/ 5 ML UDC GT SCH (21:00)
[2023-08-31] MEDS: VITAMINS A AND D 56.7 GM TUBE TP SCH ×2 (21:00)
[2023-08-31] MEDS: METOPROLOL TARTRATE 25 MG TABLET GT SCH (21:47)
[2023-08-31 22:13] VITALS: O2SAT 98
[2023-08-31 22:14] VITALS: O2SAT 98
[2023-09-01] VITALS (8 sets, daily range): BP systolic 96–138; BP diastolic 52–77; TEMP 97.1–98.1; O2SAT 96–100
[2023-09-01] MEDS: BLOOD SUGAR DIAGNOSTIC 1 EACH STRIP IN SCH
[2023-09-01] MEDS: TOBRAMYCIN/DEXAMETH OPHTH DORPS 2.5 ML BOTTLE EACHEYE SCH
[2023-09-01] MEDS: INSULIN REGULAR, HUMAN 100 UNIT/ML 3 ML VIAL SQ PRN (02:25)
[2023-09-01] MEDS: IPRATROPIUM NEB FS 0.5 MG/2.5 ML AMPUL.NEB HHN PRN (08:13)
[2023-09-01] MEDS: ALBUTEROL FS 2.5 MG/3 ML VIAL.NEB NEB PRN (08:14)
[2023-09-01] MEDS: GLYCOPYRROLATE 1 MG TABLET GT SCH (09:00)
[2023-09-01] MEDS: ASPIRIN 81 MG TAB.CHEW GT SCH (09:00)
[2023-09-02 08:08] VITALS: BP 88/74; TEMP 98.4; O2SAT 99
[2023-09-02 10:13] VITALS: O2SAT 98
[2023-09-02 20:00] VITALS: BP 107/65; TEMP 97.1; O2SAT 99
[2023-09-02 22:58] VITALS: O2SAT 99
[2023-09-02 22:59] VITALS: O2SAT 99
[2023-09-03] VITALS (8 sets, daily range): BP systolic 99–131; BP diastolic 68–82; TEMP 97–97.5; O2SAT 94–99
[2023-09-04 07:51] VITALS: BP 120/81; TEMP 97.6; O2SAT 100
[2023-09-04 11:02] VITALS: O2SAT 100; O2SAT 97
[2023-09-04 19:11] VITALS: BP 108/72; TEMP 97.3; O2SAT 97
[2023-09-04 23:25] VITALS: O2SAT 98
[2023-09-05 07:31] VITALS: BP 125/75; TEMP 95.6; O2SAT 98
[2023-09-05 10:24] VITALS: O2SAT 98
[2023-09-05] MEDS: METOCLOPRAMIDE HCL 10 MG/10 ML UDC GT SCH (12:44)
[2023-09-05 14:05] VITALS: O2SAT 99
[2023-09-05 19:56] VITALS: BP 117/84; TEMP 97.2; O2SAT 99
[2023-09-05 22:17] VITALS: O2SAT 99
[2023-09-05 22:24] VITALS: O2SAT 99
[2023-09-05] MEDS: IV D5/0.45 NACL 1,000 ML IV PRN (22:30)
[2023-09-06] MEDS ORDERED: COLISTIMETHATE SODIUM 150 MG CBA VIAL NEB ONE (09:24)
[2023-09-06 10:12] VITALS: O2SAT 100
[2023-09-06 10:13] VITALS: O2SAT 97
[2023-09-06 20:00] VITALS: BP 106/66; TEMP 98.1; O2SAT 99
[2023-09-06 22:58] VITALS: O2SAT 100
[2023-09-06 22:59] VITALS: O2SAT 100
[2023-09-07 08:55] VITALS: BP 130/92; TEMP 97; O2SAT 98
[2023-09-07 10:10] VITALS: O2SAT 100
[2023-09-07] MEDS ORDERED: DIATR MEGLU/DIATRIZOATE SODIUM 120 ML BOTTLE (GASTROGRAPHIN) ONE (12:51)
[2023-09-07 20:00] VITALS: BP 106/74; TEMP 98.1; O2SAT 99
[2023-09-07 22:17] VITALS: O2SAT 99
[2023-09-07 22:18] VITALS: O2SAT 98
[2023-09-08 08:53] VITALS: BP 133/77; TEMP 95.9; O2SAT 100
[2023-09-08 10:24] VITALS: O2SAT 98
[2023-09-08 10:59] VITALS: O2SAT 100
[2023-09-08 20:55] VITALS: BP 104/65; TEMP 97.6; O2SAT 99
[2023-09-08 22:32] VITALS: O2SAT 98
[2023-09-08 22:33] VITALS: O2SAT 98
[2023-09-09 07:19] VITALS: BP 105/80; TEMP 98; O2SAT 97
[2023-09-09 11:23] VITALS: O2SAT 100
[2023-09-09 20:00] VITALS: BP 106/74; TEMP 98.3; O2SAT 99
[2023-09-09 22:19] VITALS: O2SAT 97
[2023-09-09 22:20] VITALS: O2SAT 97
[2023-09-10 07:30] VITALS: BP 111/67; TEMP 97.6; O2SAT 98
[2023-09-10 10:14] VITALS: O2SAT 98
[2023-09-10 10:15] VITALS: O2SAT 98
[2023-09-10 20:04] VITALS: BP 102/75; TEMP 97; O2SAT 99
[2023-09-10] MEDS: METOCLOPRAMIDE HCL 10 MG/2 ML VIAL IV SCH (21:02)
[2023-09-10 23:47] VITALS: O2SAT 97
[2023-09-11 07:50] VITALS: BP 142/90; TEMP 96.7; O2SAT 98
[2023-09-11 10:19] VITALS: O2SAT 99
[2023-09-11 19:47] VITALS: BP 118/75; TEMP 97.3; O2SAT 98
[2023-09-11] MEDS: METOCLOPRAMIDE HCL 10 MG/10 ML UDC GT SCH (20:38)
[2023-09-11 23:36] VITALS: O2SAT 97; O2SAT 98
[2023-09-12 07:55] VITALS: BP 134/88; TEMP 97.7; O2SAT 96
[2023-09-12 10:10] VITALS: O2SAT 99
[2023-09-12 12:30] VITALS: O2SAT 96
[2023-09-12] MEDS: METOCLOPRAMIDE HCL 10 MG/2 ML VIAL IV SCH (13:05)
[2023-09-12 19:27] VITALS: BP 117/70; TEMP 97.4; O2SAT 97
[2023-09-12 22:26] VITALS: O2SAT 98
[2023-09-13 07:46] VITALS: BP 140/82; TEMP 97.3; O2SAT 98
[2023-09-13 11:47] VITALS: O2SAT 97; O2SAT 98
[2023-09-13 20:03] VITALS: BP 122/86; TEMP 96.6; O2SAT 99
[2023-09-13 23:44] VITALS: O2SAT 99
[2023-09-13 23:45] VITALS: O2SAT 98
[2023-09-14 07:42] VITALS: BP 126/81; TEMP 96.5; O2SAT 98
[2023-09-14 14:56] VITALS: O2SAT 98
[2023-09-14 23:23] VITALS: O2SAT 97
[2023-09-14 23:25] VITALS: O2SAT 97
[2023-09-15] VITALS (7 sets, daily range): BP systolic 138–145; BP diastolic 77–88; TEMP 97.2–97.8; O2SAT 94–98
[2023-09-16 07:43] VITALS: BP 134/86; TEMP 97.6; O2SAT 95
[2023-09-16 10:29] VITALS: O2SAT 99
[2023-09-16 11:30] VITALS: O2SAT 96
[2023-09-16 20:55] VITALS: BP 129/71; TEMP 97; O2SAT 99
[2023-09-16 23:44] VITALS: O2SAT 98
[2023-09-17 07:42] VITALS: BP 114/77; TEMP 95.4; O2SAT 98
[2023-09-17 10:40] VITALS: O2SAT 98; O2SAT 99
[2023-09-17 19:27] VITALS: BP 142/87; TEMP 97.6; O2SAT 100
[2023-09-17 23:36] VITALS: O2SAT 97
[2023-09-18 07:43] VITALS: BP 113/68; TEMP 97.3; O2SAT 99
[2023-09-18 11:36] VITALS: O2SAT 99
[2023-09-18 20:06] VITALS: BP 130/75; TEMP 97.1; O2SAT 100
[2023-09-18 23:26] VITALS: O2SAT 99
[2023-09-19 07:26] VITALS: BP 145/86; TEMP 97; O2SAT 99
[2023-09-19 12:04] VITALS: O2SAT 98
[2023-09-19 20:02] VITALS: BP 119/78; TEMP 97.2; O2SAT 94
[2023-09-19] MEDS: METOCLOPRAMIDE HCL 10 MG TABLET GT SCH (21:14)
[2023-09-19 23:49] VITALS: O2SAT 97
[2023-09-19 23:51] VITALS: O2SAT 97
[2023-09-20 07:13] VITALS: BP 140/78; TEMP 96.8; O2SAT 96
[2023-09-20 10:21] VITALS: O2SAT 96
[2023-09-20 10:22] VITALS: O2SAT 97
[2023-09-20 20:00] VITALS: BP 123/74; TEMP 98.1; O2SAT 99
[2023-09-20 22:13] VITALS: O2SAT 97
[2023-09-20 22:14] VITALS: O2SAT 97
[2023-09-21 09:09] VITALS: BP 120/67; TEMP 98; O2SAT 97
[2023-09-21 10:24] VITALS: O2SAT 97
[2023-09-21 10:53] VITALS: O2SAT 97
[2023-09-21 20:00] VITALS: BP 128/87; TEMP 97.5; O2SAT 99
[2023-09-21 23:25] VITALS: O2SAT 97
[2023-09-21 23:27] VITALS: O2SAT 95
[2023-09-22 08:44] VITALS: BP 123/74; TEMP 97.3; O2SAT 97
[2023-09-22 10:22] VITALS: O2SAT 98
[2023-09-22 14:48] VITALS: O2SAT 98
[2023-09-22 20:02] VITALS: BP 114/81; TEMP 97.5; O2SAT 96
[2023-09-22 22:16] VITALS: O2SAT 97
[2023-09-22 22:17] VITALS: O2SAT 97
[2023-09-23 11:53] VITALS: O2SAT 95
[2023-09-23 20:00] VITALS: BP 134/77; TEMP 97.2; O2SAT 97
[2023-09-23 22:20] VITALS: O2SAT 95
[2023-09-23 22:21] VITALS: O2SAT 94
[2023-09-24 10:21] VITALS: O2SAT 97; O2SAT 98
[2023-09-24 20:24] VITALS: BP 128/69; TEMP 97.4; O2SAT 98
[2023-09-24 22:43] VITALS: O2SAT 99
[2023-09-24 22:45] VITALS: O2SAT 99
[2023-09-25 07:25] VITALS: BP 126/74; TEMP 97.9; O2SAT 99
[2023-09-25 10:52] VITALS: O2SAT 100
[2023-09-25 21:32] VITALS: BP 145/77; TEMP 97.2; O2SAT 100
[2023-09-25 22:36] VITALS: O2SAT 100
[2023-09-26 07:26] VITALS: BP 103/84; TEMP 97.4; O2SAT 100
[2023-09-26 11:29] VITALS: O2SAT 99
[2023-09-26 19:33] VITALS: BP 138/74; TEMP 97.6; O2SAT 99
[2023-09-26 23:22] VITALS: O2SAT 97
[2023-09-27 08:15] VITALS: BP 131/86; TEMP 97.8; O2SAT 99
[2023-09-27 08:20] VITALS: BP 119/73; TEMP 98.4; O2SAT 99
[2023-09-27 10:15] VITALS: O2SAT 97
[2023-09-27 10:16] VITALS: O2SAT 97
[2023-09-27 19:38] VITALS: BP 121/64; TEMP 98.2; O2SAT 96
[2023-09-27 23:00] VITALS: O2SAT 97
[2023-09-28 07:41] VITALS: BP 126/55; TEMP 100; O2SAT 94
[2023-09-28 10:27] VITALS: O2SAT 98; O2SAT 99
[2023-09-28 19:56] VITALS: BP 114/73; TEMP 98; O2SAT 97
[2023-09-28 23:01] VITALS: O2SAT 97
[2023-09-29 08:26] VITALS: BP 131/78; TEMP 97.9; O2SAT 96
[2023-09-29 11:22] VITALS: O2SAT 97
[2023-09-29 19:46] VITALS: BP 125/66; TEMP 97.9; O2SAT 98
[2023-09-30 01:11] VITALS: O2SAT 98
[2023-09-30 10:00] VITALS: BP 125/67; TEMP 97.5
[2023-09-30 10:12] VITALS: O2SAT 98
[2023-09-30 12:05] VITALS: O2SAT 99
[2023-09-30 19:42] VITALS: BP 132/81; TEMP 98.1; O2SAT 98
[2023-09-30 23:29] VITALS: O2SAT 99
[2023-10-01 08:58] VITALS: BP 116/58; TEMP 98.6; O2SAT 98
[2023-10-01 10:24] VITALS: O2SAT 98
[2023-10-01 19:34] VITALS: BP 111/62; TEMP 98.2; O2SAT 97
[2023-10-01 22:57] VITALS: O2SAT 98
[2023-10-01 22:58] VITALS: O2SAT 98
[2023-10-02 08:07] VITALS: BP 117/50; TEMP 97.9; O2SAT 95
[2023-10-02 08:11] VITALS: BP 130/60; TEMP 98.2; O2SAT 96
[2023-10-02 10:37] VITALS: O2SAT 97
[2023-10-02 10:38] VITALS: O2SAT 97
[2023-10-02 20:03] VITALS: BP 116/67; TEMP 97.7; O2SAT 99
[2023-10-02] MEDS: METOPROLOL TARTRATE 25 MG TABLET PO SCH (21:15)
[2023-10-02 22:45] VITALS: O2SAT 98
[2023-10-03 06:18] VITALS: BP 97/63; TEMP 97.6; O2SAT 99
[2023-10-03 14:27] VITALS: O2SAT 98
[2023-10-03 19:54] VITALS: BP 120/60; TEMP 98.2; O2SAT 97
[2023-10-03 22:05] VITALS: O2SAT 98
[2023-10-04 07:28] VITALS: BP 127/74; TEMP 97.9; O2SAT 96
[2023-10-04 15:41] VITALS: O2SAT 98
[2023-10-04 15:42] VITALS: O2SAT 98
[2023-10-04 20:00] VITALS: BP 125/80; TEMP 99; O2SAT 98
[2023-10-04 22:41] VITALS: O2SAT 98
[2023-10-05 08:34] VITALS: BP 131/72; TEMP 98.2; O2SAT 97
[2023-10-05 10:29] VITALS: O2SAT 99
[2023-10-05 10:30] VITALS: O2SAT 99
[2023-10-05 19:30] VITALS: BP 130/81; TEMP 98.1; O2SAT 99
[2023-10-05 19:56] VITALS: O2SAT 98
[2023-10-05 22:32] VITALS: O2SAT 98
[2023-10-06 07:14] VITALS: BP 134/69; TEMP 98.3; O2SAT 99
[2023-10-06 11:05] VITALS: O2SAT 98; O2SAT 99
[2023-10-06 20:54] VITALS: BP 121/70; TEMP 98; O2SAT 97
[2023-10-06 23:30] VITALS: O2SAT 100
[2023-10-07 07:54] VITALS: BP 148/86; TEMP 97.7; O2SAT 91
[2023-10-07 08:01] VITALS: O2SAT 99
[2023-10-07 10:43] VITALS: O2SAT 98
[2023-10-07 19:43] VITALS: BP 128/72; TEMP 97.9; O2SAT 98
[2023-10-07 23:13] VITALS: O2SAT 99
[2023-10-08 07:58] VITALS: BP 123/71; TEMP 97.5; O2SAT 100
[2023-10-08 10:17] VITALS: O2SAT 99
[2023-10-08 19:11] VITALS: BP 128/74; TEMP 98.1; O2SAT 99
[2023-10-08 23:20] VITALS: O2SAT 99
[2023-10-09] MEDS: ASPIRIN 81 MG TAB.CHEW GT SCH (08:06)
[2023-10-09 08:38] VITALS: BP 120/73; TEMP 98; O2SAT 98
[2023-10-09 10:49] VITALS: O2SAT 97
[2023-10-09 10:50] VITALS: O2SAT 97
[2023-10-09 20:16] VITALS: BP 126/77; TEMP 97.3; O2SAT 99
[2023-10-09 21:01] VITALS: O2SAT 98
[2023-10-10 00:29] VITALS: O2SAT 98; O2SAT 99
[2023-10-10 08:36] VITALS: BP 132/80; TEMP 97; O2SAT 98
[2023-10-10 10:46] VITALS: O2SAT 99
[2023-10-10 10:47] VITALS: O2SAT 99
[2023-10-10 23:31] VITALS: O2SAT 98
[2023-10-11 07:48] VITALS: BP 117/70; TEMP 97.5; O2SAT 100
[2023-10-11 10:42] VITALS: O2SAT 100
[2023-10-11 10:43] VITALS: O2SAT 100
[2023-10-11 21:24] VITALS: BP 120/74; TEMP 97.9; O2SAT 100
[2023-10-11 23:13] VITALS: O2SAT 99
[2023-10-12 07:36] VITALS: BP 122/55; TEMP 97.9; O2SAT 98
[2023-10-12 10:20] VITALS: O2SAT 96
[2023-10-12 19:59] VITALS: BP 117/65; TEMP 98.4; O2SAT 97
[2023-10-12 22:34] VITALS: O2SAT 97
[2023-10-13 08:14] VITALS: BP 126/66; TEMP 100.7; O2SAT 100
[2023-10-13 10:13] VITALS: O2SAT 97
[2023-10-13 10:14] VITALS: O2SAT 97
[2023-10-13 22:17] VITALS: BP 104/74; TEMP 98.8; O2SAT 99
[2023-10-13 23:05] VITALS: O2SAT 99
[2023-10-14 08:00] VITALS: BP 129/70; TEMP 97.9; O2SAT 99
[2023-10-14 10:04] VITALS: O2SAT 99
[2023-10-14 10:05] VITALS: O2SAT 99
[2023-10-14 19:43] VITALS: BP 127/67; TEMP 98.1; O2SAT 98
[2023-10-14 23:14] VITALS: O2SAT 99
[2023-10-15 09:03] VITALS: BP 129/67; TEMP 97.8; O2SAT 99
[2023-10-15 10:00] VITALS: O2SAT 99
[2023-10-15 11:04] VITALS: O2SAT 99
[2023-10-15 19:39] VITALS: BP 142/85; TEMP 98.9; O2SAT 96
[2023-10-15 23:34] VITALS: O2SAT 99
[2023-10-16 08:03] VITALS: BP 116/55; TEMP 97.9; O2SAT 98
[2023-10-16 10:12] VITALS: O2SAT 98
[2023-10-16 10:16] VITALS: O2SAT 98
[2023-10-16 19:15] VITALS: BP 118/80; TEMP 97.5; O2SAT 99
[2023-10-16 22:56] VITALS: O2SAT 96
[2023-10-16 22:57] VITALS: O2SAT 96
[2023-10-17] MEDS: TUBERCULIN,PURIF.PROT.DERIV. 5 TU/0.1 ML VIAL ID SCH (09:30)
[2023-10-17 10:36] VITALS: O2SAT 99
[2023-10-17 20:03] VITALS: BP 115/61; TEMP 98; O2SAT 97
[2023-10-17 22:46] VITALS: O2SAT 98
[2023-10-17 22:47] VITALS: O2SAT 98
[2023-10-18 11:30] VITALS: O2SAT 97
[2023-10-18 11:34] VITALS: O2SAT 99
[2023-10-18 19:42] VITALS: BP 119/73; TEMP 97.5; O2SAT 100
[2023-10-18 22:08] VITALS: O2SAT 99
[2023-10-18 22:09] VITALS: O2SAT 98
[2023-10-19 08:04] VITALS: BP 125/69; TEMP 97.4; O2SAT 99
[2023-10-19 10:20] VITALS: O2SAT 99
[2023-10-19 10:21] VITALS: O2SAT 99
[2023-10-19 20:59] VITALS: BP 121/76; TEMP 97.5; O2SAT 98
[2023-10-19 22:14] VITALS: O2SAT 99
[2023-10-20 06:49] LABS: BASOPHILS # (AUTO) 0.1 K/uL (0.0-0.2); BASOPHILS % (AUTO) 0.9 % (0.0-2.0); EOSINOPHILS # (AUTO) 0.6 K/uL (0.0-0.7); EOSINOPHILS % (AUTO) 7.1 % (0.0-6.0); HEMATOCRIT 34 % (39-51); HEMOGLOBIN 10.4 g/dL (13.5-17.5); LYMPHOCYTES # (AUTO) 1.4 K/uL (0.8-4.8); MEAN CORPUSCULAR HEMOGLOBIN 25 PG (26.0-33.0); MEAN CORPUSCULAR HGB CONC 30 g/dl (31.0-36.0); MEAN CORPUSCULAR VOLUME 83 fL (80-96); MONOCYTES # (AUTO) 1.2 K/uL (0.1-1.30); MONOCYTES % (AUTO) 13.7 % (2.0-12.0); NEUTROPHILS # (AUTO) 5.3 K/uL (1.8-8.9); NEUTROPHILS % (AUTO) 62.3 % (43.0-81.0); PLATELET COUNT (AUTO) 659 K/uL (150-450); RED BLOOD CELL COUNT(AUTO) 4.12 MIL/uL (4.5-6.0); RED CELL DISTRIBUTION WIDTH 24.3 % (11.5-15.0); WHITE BLOOD COUNT (AUTO) 8.6 K/uL (4.3-11.0)
[2023-10-20 08:50] VITALS: BP 128/71; TEMP 97.5; O2SAT 99
[2023-10-20 10:38] VITALS: O2SAT 100; O2SAT 99
[2023-10-20 20:10] VITALS: BP 133/73; TEMP 97.3; O2SAT 99
[2023-10-20 22:34] VITALS: O2SAT 98
[2023-10-21 07:22] VITALS: BP 122/64; TEMP 97.6; O2SAT 100
[2023-10-21 10:56] VITALS: O2SAT 98
[2023-10-21 11:20] VITALS: O2SAT 99
[2023-10-21 20:00] VITALS: BP 128/61; TEMP 98.3; O2SAT 99
[2023-10-21 23:35] VITALS: O2SAT 98
[2023-10-22 07:20] VITALS: BP 129/69; TEMP 97.6; O2SAT 98
[2023-10-22 10:20] VITALS: O2SAT 98
[2023-10-22 10:54] VITALS: O2SAT 98
[2023-10-22 19:13] VITALS: BP 130/69; TEMP 97.7; O2SAT 98
[2023-10-22 23:06] VITALS: O2SAT 98
[2023-10-23 07:48] VITALS: BP 103/59; TEMP 97.7; O2SAT 98
[2023-10-23 10:25] VITALS: O2SAT 98
[2023-10-23 19:06] VITALS: BP 110/63; TEMP 97.9; O2SAT 97
[2023-10-23 23:34] VITALS: O2SAT 98
[2023-10-24 07:33] VITALS: BP 132/72; TEMP 98.4; O2SAT 99
[2023-10-24 10:52] VITALS: O2SAT 98
[2023-10-24 19:42] VITALS: BP 136/77; TEMP 98.4; O2SAT 100
[2023-10-24 23:35] VITALS: O2SAT 98
[2023-10-25 07:48] VITALS: BP 129/71; TEMP 97.7; O2SAT 97
[2023-10-25 12:17] VITALS: O2SAT 99
[2023-10-25 12:19] VITALS: O2SAT 99
[2023-10-25 20:05] VITALS: BP 129/66; TEMP 97.5; O2SAT 98
[2023-10-25 22:42] VITALS: O2SAT 99
[2023-10-26 08:02] VITALS: BP 117/63; TEMP 99; O2SAT 99
[2023-10-26 10:47] VITALS: O2SAT 96
[2023-10-26] MEDS ORDERED: DIATR MEGLU/DIATRIZOATE SODIUM 30 ML BOTTLE (GASTROGRAPHIN) ONE (10:53)
[2023-10-26 20:00] VITALS: BP 131/68; TEMP 98; O2SAT 99
[2023-10-26 23:10] VITALS: O2SAT 97
[2023-10-26 23:11] VITALS: O2SAT 97
[2023-10-27 08:07] VITALS: BP 121/67; TEMP 98.6; O2SAT 94
[2023-10-27 11:27] VITALS: O2SAT 98
[2023-10-27 12:07] VITALS: O2SAT 98
[2023-10-27 20:05] VITALS: BP 121/61; TEMP 98.2; O2SAT 99
[2023-10-27] MEDS: TRIAMCINOLONE ACETONIDE 0.1% CR 15 GM TUBE TP SCH ×2 (20:43→20:44)
[2023-10-27 22:35] VITALS: O2SAT 99
[2023-10-28 10:26] VITALS: O2SAT 98
[2023-10-28 21:01] VITALS: BP 121/61; TEMP 97.4; O2SAT 99
[2023-10-28 22:49] VITALS: O2SAT 98
[2023-10-29 07:23] VITALS: BP 145/75; TEMP 97.9; O2SAT 99
[2023-10-29 10:20] VITALS: O2SAT 99
[2023-10-29 11:07] VITALS: O2SAT 99
[2023-10-29 20:04] VITALS: BP 138/71; TEMP 97.9; O2SAT 96
[2023-10-29 22:39] VITALS: O2SAT 99
[2023-10-30 08:04] VITALS: BP 127/71; TEMP 97.7; O2SAT 100
[2023-10-30 10:29] VITALS: O2SAT 98
[2023-10-30 11:21] VITALS: O2SAT 100
[2023-10-30 20:07] VITALS: BP 136/75; TEMP 97.3; O2SAT 94
[2023-10-30] MEDS: POVIDONE IODINE TP SCH (21:17)
[2023-10-30 23:06] VITALS: O2SAT 99
[2023-10-31 07:17] VITALS: BP 149/80; TEMP 97.3; O2SAT 97
[2023-10-31 10:04] VITALS: O2SAT 99
[2023-10-31 20:37] VITALS: BP 119/71; TEMP 97.2; O2SAT 100
[2023-10-31 22:32] VITALS: O2SAT 99
[2023-11-01 07:21] VITALS: BP 138/78; TEMP 97.9; O2SAT 99
[2023-11-01 10:36] VITALS: O2SAT 99
[2023-11-01 20:00] VITALS: BP 124/60; TEMP 98; O2SAT 99
[2023-11-01 22:00] VITALS: BP 124/60; TEMP 98; O2SAT 99
[2023-11-01 22:33] VITALS: O2SAT 99
[2023-11-01 22:34] VITALS: O2SAT 99
[2023-11-02 07:51] VITALS: BP 114/64; TEMP 97.9; O2SAT 100
[2023-11-02 10:22] VITALS: O2SAT 99
[2023-11-02 10:23] VITALS: O2SAT 99
[2023-11-02 19:51] VITALS: BP 116/74; TEMP 98.3; O2SAT 99
[2023-11-02 22:39] VITALS: O2SAT 98
[2023-11-03 08:34] VITALS: BP 137/77; TEMP 98.6; O2SAT 99
[2023-11-03 10:40] VITALS: O2SAT 100
[2023-11-03 11:38] VITALS: O2SAT 98
[2023-11-03 21:41] VITALS: BP 119/67; TEMP 97.8; O2SAT 95
[2023-11-04 00:07] VITALS: O2SAT 100
[2023-11-04 11:02] VITALS: O2SAT 98
[2023-11-04 15:52] VITALS: O2SAT 100
[2023-11-04 20:00] VITALS: BP 141/73; TEMP 98; O2SAT 99
[2023-11-04 23:56] VITALS: O2SAT 99
[2023-11-04 23:57] VITALS: O2SAT 100
[2023-11-05 07:28] VITALS: BP 151/78; TEMP 98.4; O2SAT 99
[2023-11-05 12:20] VITALS: O2SAT 98
[2023-11-05 12:21] VITALS: O2SAT 98
[2023-11-05 20:59] VITALS: BP 122/65; TEMP 98.4; O2SAT 98
[2023-11-05 23:25] VITALS: O2SAT 100
[2023-11-06 07:17] VITALS: BP 138/85; TEMP 98.2; O2SAT 99
[2023-11-06 10:26] VITALS: O2SAT 99
[2023-11-06 10:27] VITALS: O2SAT 99
[2023-11-06 20:16] VITALS: BP 128/64; TEMP 98.2; O2SAT 99
[2023-11-06 23:02] VITALS: O2SAT 100
[2023-11-07 07:24] VITALS: BP 145/76; TEMP 97.7; O2SAT 100
[2023-11-07 10:10] VITALS: O2SAT 100
[2023-11-07 19:38] VITALS: BP 127/79; TEMP 98.2; O2SAT 100
[2023-11-07 22:57] VITALS: O2SAT 99
[2023-11-07 22:58] VITALS: O2SAT 99
[2023-11-08 07:42] VITALS: BP 112/60; TEMP 98.2; O2SAT 100
[2023-11-08 11:39] VITALS: O2SAT 98
[2023-11-08 11:40] VITALS: O2SAT 98
[2023-11-08 20:01] VITALS: BP 127/64; TEMP 97.7; O2SAT 100
[2023-11-08 22:23] VITALS: O2SAT 100
[2023-11-08 23:43] VITALS: O2SAT 100
[2023-11-09 07:50] VITALS: BP 135/65; TEMP 97.7; O2SAT 99
[2023-11-09 10:20] VITALS: O2SAT 99
[2023-11-09 20:00] VITALS: BP 129/60; TEMP 97.3; O2SAT 100
[2023-11-10 00:04] VITALS: O2SAT 100
[2023-11-10] MEDS: FAMOTIDINE 40 MG/5 ML GT SCH (05:58)
[2023-11-10 07:40] VITALS: BP 135/69; TEMP 97.3; O2SAT 98
[2023-11-10 10:49] VITALS: O2SAT 98; O2SAT 99
[2023-11-10 20:01] VITALS: BP 131/80; TEMP 97.5; O2SAT 99
[2023-11-10 22:55] VITALS: O2SAT 99
[2023-11-11 07:19] VITALS: BP 127/68; TEMP 98.1; O2SAT 97
[2023-11-11 10:15] VITALS: O2SAT 100
[2023-11-11 11:37] VITALS: O2SAT 98
[2023-11-11 20:00] VITALS: BP 131/73; TEMP 98.3; O2SAT 99
[2023-11-11 23:00] VITALS: O2SAT 98
[2023-11-12 08:35] VITALS: BP 129/82; TEMP 97.8; O2SAT 99
[2023-11-12 11:00] VITALS: O2SAT 97
[2023-11-12 11:04] VITALS: O2SAT 97
[2023-11-12 19:19] VITALS: BP 120/74; TEMP 97.7; O2SAT 96
[2023-11-12 23:34] VITALS: O2SAT 97
[2023-11-13 08:27] VITALS: BP 137/79; TEMP 98.2; O2SAT 98
[2023-11-13 11:13] VITALS: O2SAT 97
[2023-11-13 19:06] VITALS: BP 131/75; TEMP 97.5; O2SAT 100
[2023-11-13 23:08] VITALS: O2SAT 100
[2023-11-14 07:03] VITALS: BP 144/71; TEMP 98.1; O2SAT 100
[2023-11-14 10:11] VITALS: O2SAT 100
[2023-11-14 11:46] VITALS: O2SAT 100
[2023-11-14 19:37] VITALS: BP 157/78; TEMP 98.1; O2SAT 100
[2023-11-14 22:13] VITALS: O2SAT 100
[2023-11-14 22:14] VITALS: O2SAT 100
[2023-11-15 07:26] VITALS: BP 141/78; TEMP 97.6; O2SAT 100
[2023-11-15 10:46] VITALS: O2SAT 97
[2023-11-15 15:45] VITALS: O2SAT 98
[2023-11-15 20:09] VITALS: BP 134/82; TEMP 97.9; O2SAT 100
[2023-11-15 22:07] VITALS: O2SAT 100
[2023-11-16 07:36] VITALS: BP 137/84; TEMP 97.9; O2SAT 100
[2023-11-16 10:12] VITALS: O2SAT 98
[2023-11-16 10:13] VITALS: O2SAT 98
[2023-11-16] MEDS: METOCLOPRAMIDE HCL 10 MG TABLET GT SCH (13:26)
[2023-11-16 21:52] VITALS: BP 143/77; TEMP 97.5; O2SAT 100
[2023-11-16 22:25] VITALS: O2SAT 99
[2023-11-16 22:26] VITALS: O2SAT 99
[2023-11-17 08:00] VITALS: BP 134/83; TEMP 98.1; O2SAT 100
[2023-11-17 10:30] VITALS: O2SAT 99
[2023-11-17 21:10] VITALS: BP 136/81; TEMP 97.9; O2SAT 97
[2023-11-17 23:01] VITALS: O2SAT 98
[2023-11-18 07:30] VITALS: BP 141/77; TEMP 97.5; O2SAT 98
[2023-11-18 10:09] VITALS: O2SAT 99
[2023-11-18 11:49] VITALS: O2SAT 97
[2023-11-18 19:56] VITALS: BP 138/73; TEMP 99.1; O2SAT 97
[2023-11-18 22:31] VITALS: O2SAT 98
[2023-11-19 07:11] VITALS: BP 141/78; TEMP 99.9; O2SAT 97
[2023-11-19 10:24] VITALS: O2SAT 98
[2023-11-19 12:28] VITALS: O2SAT 99
[2023-11-19 19:54] VITALS: BP 135/75; TEMP 98.1; O2SAT 99
[2023-11-19 22:52] VITALS: O2SAT 99
[2023-11-20 08:00] VITALS: BP 132/73; TEMP 98; O2SAT 99
[2023-11-20 10:52] VITALS: O2SAT 98
[2023-11-20 10:53] VITALS: O2SAT 98
[2023-11-20 21:24] VITALS: BP 148/79; TEMP 97.4; O2SAT 99
[2023-11-20 23:29] VITALS: O2SAT 99
[2023-11-20 23:30] VITALS: O2SAT 99
[2023-11-21 07:31] VITALS: BP 149/72; TEMP 97.9; O2SAT 99
[2023-11-21 10:43] VITALS: O2SAT 98
[2023-11-21 10:44] VITALS: O2SAT 98
[2023-11-21 19:45] VITALS: BP 140/74; TEMP 98.8; O2SAT 99
[2023-11-21 23:09] VITALS: O2SAT 99
[2023-11-22 07:33] VITALS: BP 143/74; TEMP 98.8; O2SAT 99
[2023-11-22 10:54] VITALS: O2SAT 98
[2023-11-22 10:55] VITALS: O2SAT 98
[2023-11-22 19:54] VITALS: BP 150/91; TEMP 99; O2SAT 98
[2023-11-22 22:51] VITALS: O2SAT 99
[2023-11-23] MEDS: LORAZEPAM INJ 2 MG/ML VIAL IM PRN (01:00)
[2023-11-23] MEDS ORDERED: LORAZEPAM INJ 2 MG/ML VIAL ONE (01:24)
[2023-11-23 08:28] VITALS: BP 102/64; TEMP 97; O2SAT 100
[2023-11-23 10:42] VITALS: O2SAT 99
[2023-11-23 20:01] VITALS: BP 138/95; TEMP 97.3; O2SAT 100
[2023-11-23 20:04] LABS: BASOPHILS % (AUTO) 0.3 % (0.0-2.0); EOSINOPHILS # (AUTO) 0.4 K/uL (0.0-0.7); EOSINOPHILS % (AUTO) 3.8 % (0.0-6.0); HEMATOCRIT 35 % (39-51); LYMPHOCYTES # (AUTO) 0.9 K/uL (0.8-4.8); LYMPHOCYTES % (AUTO) 9.7 % (20.0-44.0); MEAN CORPUSCULAR HEMOGLOBIN 26 PG (26.0-33.0); MEAN CORPUSCULAR HGB CONC 31 g/dl (31.0-36.0); MEAN CORPUSCULAR VOLUME 82 fL (80-96); MONOCYTES # (AUTO) 1.2 K/uL (0.1-1.30); NEUTROPHILS # (AUTO) 6.8 K/uL (1.8-8.9); NEUTROPHILS % (AUTO) 73.2 % (43.0-81.0); PLATELET COUNT (AUTO) 474 K/uL (150-450); RED BLOOD CELL COUNT(AUTO) 4.27 MIL/uL (4.5-6.0); RED CELL DISTRIBUTION WIDTH 21.9 % (11.5-15.0); WHITE BLOOD COUNT (AUTO) 9.3 K/uL (4.3-11.0)
[2023-11-23 20:45] LABS: CALCIUM, SERUM 9.3 mg/dL (8.5-10.1); CARBON DIOXIDE 35 mmol/L (21-32); CHLORIDE 101 mmol/L (98-107); CREATININE 0.6 mg/dL (0.6-1.3); GLUCOSE 128 mg/dL (74-106); POTASSIUM 4.2 mmol/L (3.5-5.1); SODIUM SERUM 141 mmol/L (136-145); UREA NITROGEN, BLOOD 32 mg/dL (7-18)
[2023-11-23 20:52] LABS: ALANINE AMINOTRANSFERASE 84 U/L (12-78); ALKALINE PHOSPHATASE 213 U/L (46-116); ASPARTATE AMINOTRANSFERASE 32 U/L (15-37); BILIRUBIN,TOTAL 0.3 mg/dL (0.2-1.0); TOTAL PROTEIN, SERUM 9.6 g/dL (6.4-8.2)
[2023-11-23 22:20] VITALS: O2SAT 99
[2023-11-23 22:21] VITALS: O2SAT 99
[2023-11-24 03:45] LABS: APPEARANCE,URINE CLOUDY (CLEAR); BILIRUBIN,URINE NEGATIVE (NEGATIVE); BLOOD, URINE 3+ Ery/uL (NEGATIVE); COLOR,URINE DARK YELLOW (YELLOW); KETONES,URINE NEGATIVE (NEGATIVE); LEUKOCYTE ESTERASE ,URINE 3+ (NEGATIVE); NITRITE, URINE POSITIVE (NEGATIVE); PROTEIN,URINE 2+ mg/dl (NEGATIVE); UGLUCOSE NEGATIVE (NEGATIVE)
[2023-11-24 03:46] LABS: ADD URINE CULTURE YES; BACTERIA,URINE Moderate /HPF (None Seen); SQUAMOUS EPITHELIAL CELL,UR Few /HPF (None Seen); WBC,URINE 21-50 /HPF (0-3)
[2023-11-24 08:37] VITALS: BP 150/87; TEMP 97.7; O2SAT 100
[2023-11-24 10:07] VITALS: O2SAT 99
[2023-11-24 11:21] VITALS: O2SAT 100
[2023-11-24 21:12] VITALS: BP 127/76; TEMP 98.1; O2SAT 100
[2023-11-25 00:47] VITALS: O2SAT 100
[2023-11-25 00:48] VITALS: O2SAT 100
[2023-11-25 08:00] VITALS: BP 149/82; TEMP 98.1; O2SAT 99
[2023-11-25 10:43] VITALS: O2SAT 100; O2SAT 98
[2023-11-25 20:00] VITALS: BP 131/79; TEMP 98.3; O2SAT 99
[2023-11-25 23:07] VITALS: O2SAT 98
[2023-11-26 06:35] VITALS: TEMP 100.3; TEMP 100.5; O2SAT 99
[2023-11-26 08:04] VITALS: BP 153/86; TEMP 97.3; O2SAT 100
[2023-11-26 08:05] VITALS: BP 153/86; TEMP 97.3; O2SAT 100
[2023-11-26 10:11] VITALS: O2SAT 98
[2023-11-26 19:39] VITALS: BP 138/74; TEMP 97.5; O2SAT 98
[2023-11-26 23:07] VITALS: O2SAT 99
[2023-11-27 08:34] VITALS: BP 128/72; TEMP 98.5; O2SAT 100
[2023-11-27 10:10] VITALS: O2SAT 99
[2023-11-27 11:32] VITALS: O2SAT 99
[2023-11-27 21:06] VITALS: BP 123/74; TEMP 97.4; O2SAT 98
[2023-11-27 22:38] VITALS: O2SAT 99
[2023-11-28 07:52] VITALS: BP 134/84; TEMP 97.9; O2SAT 100
[2023-11-28 11:21] VITALS: O2SAT 99
[2023-11-28 19:48] VITALS: BP 126/73; TEMP 99.3; O2SAT 99
[2023-11-28 22:12] VITALS: O2SAT 99
[2023-11-29 07:43] VITALS: BP 121/69; TEMP 98.2; O2SAT 99
[2023-11-29 10:07] VITALS: O2SAT 99
[2023-11-29 10:08] VITALS: O2SAT 99
[2023-11-29 20:07] VITALS: BP 138/86; TEMP 99.5; O2SAT 100
[2023-11-29 23:05] VITALS: O2SAT 100
[2023-11-30 08:04] VITALS: BP 124/67; TEMP 98.4; O2SAT 100
[2023-11-30 10:06] VITALS: O2SAT 98
[2023-11-30 19:48] VITALS: BP 130/80; TEMP 98.6; O2SAT 99
[2023-11-30 23:03] VITALS: O2SAT 100
[2023-11-30 23:04] VITALS: O2SAT 100
[2023-12-01 08:58] VITALS: BP 132/87; TEMP 98.9; O2SAT 100
[2023-12-01 10:10] VITALS: O2SAT 98
[2023-12-01 21:26] VITALS: BP 109/77; TEMP 98; O2SAT 99
[2023-12-01 22:43] VITALS: O2SAT 100
[2023-12-01 22:44] VITALS: O2SAT 100
[2023-12-02 10:59] VITALS: O2SAT 99
[2023-12-02 12:28] VITALS: O2SAT 100
[2023-12-02 19:24] VITALS: BP 110/72; TEMP 97.7; O2SAT 100
[2023-12-02 21:20] VITALS: BP 136/79; TEMP 97.5; O2SAT 99
[2023-12-02 23:06] VITALS: O2SAT 99
[2023-12-03 08:22] VITALS: BP 125/58; TEMP 97.2; O2SAT 100
[2023-12-03 08:25] VITALS: BP 119/78; TEMP 97.2; O2SAT 100
[2023-12-03 10:29] VITALS: O2SAT 99
[2023-12-03 20:18] VITALS: BP 132/75; TEMP 98.2; O2SAT 100
[2023-12-03] MEDS: ONDANSETRON 4 MG TAB.RAPDIS GT PRN (22:26)
[2023-12-03 22:32] VITALS: O2SAT 99
[2023-12-04] VITALS (8 sets, daily range): BP systolic 102–108; BP diastolic 68–87; TEMP 98.9–100.9; O2SAT 98–99
[2023-12-04 10:54] LABS: BASOPHILS # (AUTO) 0.1 K/uL (0.0-0.2); BASOPHILS % (AUTO) 0.6 % (0.0-2.0); EOSINOPHILS # (AUTO) 0.8 K/uL (0.0-0.7); EOSINOPHILS % (AUTO) 6.7 % (0.0-6.0); HEMATOCRIT 33 % (39-51); HEMOGLOBIN 9.8 g/dL (13.5-17.5); LYMPHOCYTES # (AUTO) 1.3 K/uL (0.8-4.8); LYMPHOCYTES % (AUTO) 11.5 % (20.0-44.0); MEAN CORPUSCULAR HEMOGLOBIN 25 PG (26.0-33.0); MEAN CORPUSCULAR HGB CONC 30 g/dl (31.0-36.0); MEAN CORPUSCULAR VOLUME 83 fL (80-96); MONOCYTES # (AUTO) 0.9 K/uL (0.1-1.30); NEUTROPHILS # (AUTO) 8.5 K/uL (1.8-8.9); NEUTROPHILS % (AUTO) 73.2 % (43.0-81.0); PLATELET COUNT (AUTO) 445 K/uL (150-450); RED BLOOD CELL COUNT(AUTO) 3.91 MIL/uL (4.5-6.0); RED CELL DISTRIBUTION WIDTH 21.2 % (11.5-15.0); WHITE BLOOD COUNT (AUTO) 11.7 K/uL (4.3-11.0)
[2023-12-04 11:01] LABS: CALCIUM, SERUM 9.6 mg/dL (8.5-10.1); CARBON DIOXIDE 32 mmol/L (21-32); CHLORIDE 108 mmol/L (98-107); CREATININE 0.8 mg/dL (0.6-1.3); GLUCOSE 162 mg/dL (74-106); POTASSIUM 4.2 mmol/L (3.5-5.1); SODIUM SERUM 148 mmol/L (136-145); UREA NITROGEN, BLOOD 35 mg/dL (7-18)
[2023-12-04] MEDS: IV 1/2NS 1000 ML 1,000 ML IV PRN (14:28)
[2023-12-04 20:36] LABS: APPEARANCE,URINE SLIGHTLY CLOUDY (CLEAR); BILIRUBIN,URINE NEGATIVE (NEGATIVE); BLOOD, URINE 3+ Ery/uL (NEGATIVE); COLOR,URINE YELLOW (YELLOW); KETONES,URINE NEGATIVE (NEGATIVE); LEUKOCYTE ESTERASE ,URINE 3+ (NEGATIVE); NITRITE, URINE NEGATIVE (NEGATIVE); PH,URINE 6.5 (5.0-8.0); PROTEIN,URINE 2+ mg/dl (NEGATIVE); UGLUCOSE NEGATIVE (NEGATIVE); UROBILINOGEN,URINE 0.2 EU/dL (0.2)
[2023-12-04 21:03] LABS: ADD URINE CULTURE YES; BACTERIA,URINE Many /HPF (None Seen); RBC,URINE 21-50 /HPF (0-2); SQUAMOUS EPITHELIAL CELL,UR 0-2 /HPF (None Seen); WBC,URINE 21-50 /HPF (0-3)
[2023-12-05] VITALS (7 sets, daily range): BP systolic 138–142; BP diastolic 80–86; TEMP 97.9–99; O2SAT 97–100
[2023-12-06 07:54] VITALS: BP 128/72; TEMP 99.7; O2SAT 99
[2023-12-06 10:24] VITALS: O2SAT 99
[2023-12-06 11:31] VITALS: O2SAT 99
[2023-12-06 20:07] VITALS: BP 117/70; TEMP 98.1; O2SAT 100
[2023-12-06 23:07] VITALS: O2SAT 99
[2023-12-07 07:53] VITALS: BP 121/78; TEMP 98; O2SAT 100
[2023-12-07] MEDS: TRIAMCINOLONE ACETONIDE 0.1% CR 15 GM TUBE TP SCH (09:17)
[2023-12-07 10:35] VITALS: O2SAT 99
[2023-12-07 22:48] VITALS: BP 102/59; TEMP 98.4; O2SAT 99
[2023-12-07 23:20] VITALS: O2SAT 100
[2023-12-07 23:21] VITALS: O2SAT 100
[2023-12-08 08:42] VITALS: BP 101/55; TEMP 98.8; O2SAT 100
[2023-12-08 10:35] VITALS: O2SAT 100
[2023-12-08 10:36] VITALS: O2SAT 100
[2023-12-08] MEDS ORDERED: DIATR MEGLU/DIATRIZOATE SODIUM 30 ML BOTTLE (GASTROGRAPHIN) ONE (11:07)
[2023-12-08 20:50] VITALS: BP 112/75; TEMP 99.9; O2SAT 100
[2023-12-08 23:17] VITALS: O2SAT 100
[2023-12-08 23:18] VITALS: O2SAT 100
[2023-12-09 04:36] LABS: BASOPHILS % (AUTO) 0.4 % (0.0-2.0); EOSINOPHILS # (AUTO) 0.5 K/uL (0.0-0.7); EOSINOPHILS % (AUTO) 4.4 % (0.0-6.0); HEMATOCRIT 32 % (39-51); HEMOGLOBIN 9.8 g/dL (13.5-17.5); LYMPHOCYTES # (AUTO) 1.9 K/uL (0.8-4.8); LYMPHOCYTES % (AUTO) 16.3 % (20.0-44.0); MEAN CORPUSCULAR HEMOGLOBIN 26 PG (26.0-33.0); MEAN CORPUSCULAR HGB CONC 31 g/dl (31.0-36.0); MEAN CORPUSCULAR VOLUME 86 fL (80-96); MONOCYTES # (AUTO) 1.2 K/uL (0.1-1.30); MONOCYTES % (AUTO) 10.7 % (2.0-12.0); NEUTROPHILS # (AUTO) 7.9 K/uL (1.8-8.9); NEUTROPHILS % (AUTO) 68.2 % (43.0-81.0); PLATELET COUNT (AUTO) 507 K/uL (150-450); RED BLOOD CELL COUNT(AUTO) 3.75 MIL/uL (4.5-6.0); RED CELL DISTRIBUTION WIDTH 21.3 % (11.5-15.0); WHITE BLOOD COUNT (AUTO) 11.6 K/uL (4.3-11.0)
[2023-12-09 05:13] LABS: CALCIUM, SERUM 9.7 mg/dL (8.5-10.1); CARBON DIOXIDE 38 mmol/L (21-32); CHLORIDE 109 mmol/L (98-107); CREATININE 0.9 mg/dL (0.6-1.3); GLUCOSE 176 mg/dL (74-106); MAGNESIUM 3.2 mg/dL (1.8-2.4); SODIUM SERUM 148 mmol/L (136-145); UREA NITROGEN, BLOOD 54 mg/dL (7-18)
[2023-12-09 08:09] VITALS: BP_SYST 73; TEMP 97.7; O2SAT 100
[2023-12-09 10:11] VITALS: O2SAT 99
[2023-12-09 16:35] LABS: THYROID STIMULATING HORMONE 1.82 uIU/mL (0.358-3.74)
[2023-12-09] MEDS: IV 1/2NS 1000 ML 1,000 ML IV PRN (20:18)
[2023-12-09] MEDS: SODIUM POLYSTYRENE SULFONATE 15 G/60 ML BOTTLE GT ONE (20:18)
[2023-12-09 21:44] VITALS: BP 98/66; TEMP 98.2; O2SAT 99
[2023-12-09 22:38] VITALS: O2SAT 98
[2023-12-10 01:30] VITALS: BP 114/73; TEMP 99; O2SAT 92
[2023-12-10 02:22] LABS: ABG BASE EXCESS 7.8 mmol/L (-2.0-2.0); ABG PCO2 70.6 mmHg (35.0-45.0); ABG PO2 67.5 mmHg (75.0-100.0); ABG TOTAL HEMOGLOBIN 9.7 G/dL (14.0-18.0); COHb 0.3 % (0.5-1.5); MetHb 0.1 % (0.0-1.5); O2Hb 90.6 % (94.0-97.0); SITE, ABG Right Radial
[2023-12-10 06:01] VITALS: BP 92/51; TEMP 98.8; O2SAT 99
[2023-12-10 07:16] VITALS: BP 113/64; TEMP 98.6; O2SAT 100
[2023-12-10 08:08] LABS: FOLIC ACID 11.3 ng/mL (>3.0)
[2023-12-10] MEDS ORDERED: SODIUM POLYSTYRENE SULFONATE 15 G/60 ML BOTTLE PO ONE (08:30)
[2023-12-10 09:09] VITALS: BP 113/64
[2023-12-10 09:42] LABS: ABG BASE EXCESS 10.5 mmol/L (-2.0-2.0); ABG OXYGEN SATURATION 97.2 % (92.0-98.5); ABG PCO2 37.1 mmHg (35.0-45.0); ABG PH 7.571 (7.340-7.440); ABG PO2 85.7 mmHg (75.0-100.0); ABG TOTAL HEMOGLOBIN 9.4 G/dL (14.0-18.0); COHb 0.1 % (0.5-1.5); MetHb 0.3 % (0.0-1.5); O2Hb 96.8 % (94.0-97.0); PEEP,BG 5 cm H2O; SITE, ABG Left Radial; VT, ABG 475 mL
[2023-12-10 10:04] VITALS: O2SAT 100
[2023-12-10 12:26] LABS: CALCIUM, SERUM 9.3 mg/dL (8.5-10.1); CARBON DIOXIDE 39 mmol/L (21-32); CHLORIDE 109 mmol/L (98-107); CREATININE 0.9 mg/dL (0.6-1.3); GLUCOSE 132 mg/dL (74-106); SODIUM SERUM 153 mmol/L (136-145); UREA NITROGEN, BLOOD 55 mg/dL (7-18)
[2023-12-10 12:47] LABS: BASOPHILS # (AUTO) 0.1 K/uL (0.0-0.2); BASOPHILS % (AUTO) 0.8 % (0.0-2.0); EOSINOPHILS # (AUTO) 0.8 K/uL (0.0-0.7); EOSINOPHILS % (AUTO) 5.6 % (0.0-6.0); HEMATOCRIT 27 % (39-51); HEMOGLOBIN 8.1 g/dL (13.5-17.5); LYMPHOCYTES # (AUTO) 2.3 K/uL (0.8-4.8); LYMPHOCYTES % (AUTO) 17.3 % (20.0-44.0); MEAN CORPUSCULAR HEMOGLOBIN 25 PG (26.0-33.0); MEAN CORPUSCULAR HGB CONC 30 g/dl (31.0-36.0); MEAN CORPUSCULAR VOLUME 84 fL (80-96); MONOCYTES # (AUTO) 1.2 K/uL (0.1-1.30); MONOCYTES % (AUTO) 8.8 % (2.0-12.0); NEUTROPHILS # (AUTO) 9.1 K/uL (1.8-8.9); NEUTROPHILS % (AUTO) 67.5 % (43.0-81.0); PLATELET COUNT (AUTO) 522 K/uL (150-450); RED BLOOD CELL COUNT(AUTO) 3.26 MIL/uL (4.5-6.0); RED CELL DISTRIBUTION WIDTH 21.2 % (11.5-15.0); WHITE BLOOD COUNT (AUTO) 13.5 K/uL (4.3-11.0)
== END 2023-12-10 12:00 | disposition short-term general hospital (02) | DRG 130 ==
LOC: UNDOADMIN → SA → UNDOLOA 12-10 11:30
PROVIDERS: ADMIT Internal Medicine; ATTEND Internal Medicine
PROC: 5A1955Z Respiratory Ventilation, Greater than 96 Consecutive Hours (ICD-10-PCS; principal; 2023-05-11)
PROC: 05HC33Z Insertion of Infusion Device into Left Basilic Vein, Percutaneous Approach (ICD-10-PCS; 2023-06-21)
PROC: 05HC33Z Insertion of Infusion Device into Left Basilic Vein, Percutaneous Approach (ICD-10-PCS; 2023-09-06)
DX: J96.11 Chronic respiratory failure with hypoxia (principal); J95.851 Ventilator associated pneumonia; G93.1 Anoxic brain damage, not elsewhere classified; R53.2 Functional quadriplegia; J90 Pleural effusion, not elsewhere classified; D63.8 Anemia in other chronic diseases classified elsewhere; K56.7 Ileus, unspecified; G40.909 Epilepsy, unspecified, not intractable, without status epilepticus; Z93.0 Tracheostomy status; Z99.11 Dependence on respirator [ventilator] status; E78.5 Hyperlipidemia, unspecified; I10 Essential (primary) hypertension; M10.9 Gout, unspecified; R13.10 Dysphagia, unspecified; I69.398 Other sequelae of cerebral infarction; Z98.2 Presence of cerebrospinal fluid drainage device; Z74.01 Bed confinement status; E03.9 Hypothyroidism, unspecified; I08.1 Rheumatic disorders of both mitral and tricuspid valves; I25.10 Atherosclerotic heart disease of native coronary artery without angina pectoris; K29.70 Gastritis, unspecified, without bleeding; L30.9 Dermatitis, unspecified; N39.0 Urinary tract infection, site not specified; Z43.1 Encounter for attention to gastrostomy
CPT/HCPCS: 31720; 36410; 36415; 36600; 70450-TC; 71045-TC; 73630-TC; 74018; 74250-TC; 76770-TC; 80048-TC; 80053-TC; 80061-TC; 80202-TC; 81001; 82565-TC; 82607-TC; 82803-TC; 82962-TC; 83735-TC; 83921; 84100-TC; 84443-TC; 84520-TC; 85025-TC; 85610-TC; 86580-TC; 87086-TC; 93971-TC; 94003-TC; 94640-TC; 94760-TC; 94762-TC; 94799-TC; 95819-TC; 99082-TC; A4216; A4217; A4223; A4623; A6253; A7526; J0692; J0696; J0770; J1815; J1953; J1956; J2060; J2765; J3370; J3490; J7060; J8597; Q9963

== ENCOUNTER → 2023-05-23 | Day surgery (SDC) | payer MEDICAID ==
[~2023-05-23] MED LIST changes: +ANESTHESIA TRAY IN PYXIS 1 EA TRAY MC ONE
== END | disposition home or self-care (01) ==
LOC: DS 05-15 12:10
PROVIDERS: ATTEND Internal Medicine Gastroenterology
DX: R13.10 Dysphagia, unspecified (principal)
CPT/HCPCS: 43246; 76937; J2704; J7030

== ENCOUNTER 2023-08-26 14:07 | Inpatient (IN) | payer MEDICAID ==
[~2023-08-26] VITALS: Ht 170.2 cm; Wt 75.7 kg
[~2023-08-26 14:07] MED LIST changes: -ANESTHESIA TRAY IN PYXIS 1 EA TRAY MC ONE
[2023-08-26] MEDS: ACETAMINOPHEN 650 MG/20 ML UDC- SA PATIENTS-PAIN ONLY GT STA (14:56)
[2023-08-26] MEDS: CEFEPIME 1 GM in IV D5W 50 ML IV ONE (15:00)
[2023-08-26] MEDS ORDERED: ACETAMINOPHEN 650 MG/20.3 ML UDC ONE (15:08)
[2023-08-26 15:10] LABS: BASOPHILS # (AUTO) 0.1 K/uL (0.0-0.2); BASOPHILS % (AUTO) 0.6 % (0.0-2.0); EOSINOPHILS # (AUTO) 0.2 K/uL (0.0-0.7); EOSINOPHILS % (AUTO) 1.9 % (0.0-6.0); HEMATOCRIT 30 % (39-51); HEMOGLOBIN 8.6 g/dL (13.5-17.5); LYMPHOCYTES # (AUTO) 1.4 K/uL (0.8-4.8); LYMPHOCYTES % (AUTO) 10.9 % (20.0-44.0); MEAN CORPUSCULAR HEMOGLOBIN 23 PG (26.0-33.0); MEAN CORPUSCULAR HGB CONC 29 g/dl (31.0-36.0); MEAN CORPUSCULAR VOLUME 80 fL (80-96); MONOCYTES # (AUTO) 1.6 K/uL (0.1-1.30); MONOCYTES % (AUTO) 12.4 % (2.0-12.0); NEUTROPHILS # (AUTO) 9.4 K/uL (1.8-8.9); NEUTROPHILS % (AUTO) 74.2 % (43.0-81.0); PLATELET COUNT (AUTO) 547 K/uL (150-450); RED CELL DISTRIBUTION WIDTH 24.5 % (11.5-15.0); WHITE BLOOD COUNT (AUTO) 12.7 K/uL (4.3-11.0)
[2023-08-26 15:11] LABS: POTASSIUM 4.3 mmol/L (3.5-5.1)
[2023-08-26 15:17] VITALS: O2SAT 100
[2023-08-26] MEDS: IV NS 0.9% 1,000 ML BAG IV ONE (15:30)
[2023-08-26] MEDS: VANCOMYCIN 1 GM in IV D5W 250 ML IV ONE (15:30)
[2023-08-26 15:47] LABS: ALANINE AMINOTRANSFERASE 70 U/L (12-78); ALBUMIN 2.2 g/dL (3.4-5.0); ALKALINE PHOSPHATASE 262 U/L (46-116); ASPARTATE AMINOTRANSFERASE 58 U/L (15-37); BILIRUBIN,DIRECT 0.2 mg/dL (0.0-0.2); BILIRUBIN,TOTAL 0.4 mg/dL (0.2-1.0); TOTAL PROTEIN, SERUM 9.7 g/dL (6.4-8.2)
[2023-08-26 15:51] LABS: INR 1.15 (0.91-1.10); PARTIAL THROMBOPLASTIN TIME 30.9 SEC (24.3-34.3); PROTHROMBIN TIME 11.7 SECS (9.2-11.1)
[2023-08-26 15:56] LABS: LACTIC ACID 1.9 mmol/L (0.4-2.0)
[2023-08-26 16:05] LABS: APPEARANCE,URINE Slightly Cloudy (CLEAR); BILIRUBIN,URINE SMALL (NEGATIVE); BLOOD, URINE Moderate Ery/uL (NEGATIVE); COLOR,URINE LIGHT YELLOW (YELLOW); KETONES,URINE Trace mg/dL (NEGATIVE); LEUKOCYTE ESTERASE ,URINE Small (NEGATIVE); NITRITE, URINE Negative (NEGATIVE); PH,URINE 5.5 (5.0-8.0); PROTEIN,URINE >=300 mg/dl (NEGATIVE); UGLUCOSE Negative (NEGATIVE)
[2023-08-26 16:16] LABS: ADD URINE CULTURE YES; BACTERIA,URINE MANY /HPF (None Seen); RBC,URINE 21-50 /HPF (0-2); SQUAMOUS EPITHELIAL CELL,UR None Seen /HPF (None Seen); WBC,URINE TNMTC /HPF (0-3)
[2023-08-26] MEDS ORDERED: AMIN30LI25 GT (17:27)
[2023-08-26] MEDS ORDERED: MELA3TAB41 GT (17:27)
[2023-08-26] MEDS ORDERED: MAGN400O6 GT (17:27)
[2023-08-26] MEDS ORDERED: SENN-261 GT (17:27)
[2023-08-26] MEDS ORDERED: METO-295 GT (17:27)
[2023-08-26] MEDS ORDERED: LACO200T2 GT (17:27)
[2023-08-26] MEDS ORDERED: LORA2VIA6 IM (17:30)
[2023-08-26 20:00] VITALS: BP 102/70; TEMP 98.2; O2SAT 100
[2023-08-26] MEDS ORDERED: MAGNESIUM HYDROXIDE 30 ML UDC GT PRN (23:30)
[2023-08-26] MEDS ORDERED: BISACODYL SUPP (10 MG) 10 MG/SUPP.RECT SUPP.RECT RC PRN (23:30)
[2023-08-26] MEDS ORDERED: ONDANSETRON HCL/PF 4 MG/2 ML VIAL IVP PRN (23:30)
[2023-08-26] MEDS ORDERED: LORAZEPAM INJ 2 MG/ML VIAL IM PRN (23:30)
[2023-08-26] MEDS ORDERED: DEXTROSE 50%-WATER 50 ML DISP.SYRIN IV PRN (23:30)
[2023-08-26] MEDS ORDERED: ACETAMINOPHEN 325 MG TABLET MC PRN (23:30)
[2023-08-26] MEDS ORDERED: IPRATROPIUM NEB FS 0.5 MG/2.5 ML AMPUL.NEB HHN PRN (23:30)
[2023-08-26] MEDS ORDERED: ALBUTEROL FS 2.5 MG/3 ML VIAL.NEB NEB PRN (23:30)
[2023-08-27] VITALS (7 sets, daily range): BP systolic 117–147; BP diastolic 59–86; TEMP 98.6–102.9; O2SAT 96–100
[2023-08-27] MEDS: JEVITY 1.2 CAL 1,000 ML BOTTLE GT SCH ×2 (00:04→00:17)
[2023-08-27] MEDS: ENOXAPARIN SODIUM 40 MG/0.4 ML DISP.SYRIN SQ SCH (00:20)
[2023-08-27] MEDS: BLOOD SUGAR DIAGNOSTIC 1 EACH STRIP IN SCH (00:24)
[2023-08-27] MEDS ORDERED: CEFEPIME 1 GM VIAL ONE (00:35)
[2023-08-27] MEDS: CEFEPIME 1 GM in IV D5W 50 ML IV SCH (00:38)
[2023-08-27] MEDS: IPRATROPIUM NEB FS 0.5 MG/2.5 ML AMPUL.NEB HHN SCH (01:24)
[2023-08-27] MEDS: ALBUTEROL FS 2.5 MG/0.5 ML VIAL.NEB HHN SCH (01:24)
[2023-08-27] MEDS: VANCOMYCIN 1 GM /D5W 250 ML PB IV ONE (02:04)
[2023-08-27] MEDS: VANCOMYCIN 1 GM in IV NS 0.9% 250 ML IV ONE (02:05)
[2023-08-27] MEDS: ACETAMINOPHEN 325 MG TABLET PO PRN (03:05)
[2023-08-27] MEDS: LEVOTHYROXINE SODIUM 50 MCG TABLET GT SCH (05:46)
[2023-08-27] MEDS: PANTOPRAZOLE 40 MG/PACK PACK GT SCH (05:47)
[2023-08-27 06:20] LABS: ABG BASE EXCESS -0.2 mmol/L; ABG OXYGEN SATURATION 98.5 % (92.0-98.5); ABG PCO2 39.9 mmHg (35.0-45.0); ABG PH 7.405 (7.350-7.450); ABG PO2 125.9 mmHg (75.0-100.0); ABG TOTAL HEMOGLOBIN 8.5 G/dL (13.5-18.0); AaDO2 149.6 mmHg; COHb 1.1 % (0.5-1.5); MetHb 0.3 % (0.0-1.5); O2Hb 97.1 % (94.0-97.0); PEEP,BG 5 cm H2O; SITE, ABG Right Femoral; VENT MODE, BG AC 10 450 45% +5; VT, ABG 450 mL
[2023-08-27] MEDS: INSULIN REGULAR, HUMAN 100 UNIT/ML 3 ML VIAL SQ PRN (07:09)
[2023-08-27 07:22] LABS: BASOPHILS # (AUTO) 0.1 K/uL (0.0-0.2); BASOPHILS % (AUTO) 0.6 % (0.0-2.0); EOSINOPHILS # (AUTO) 0.3 K/uL (0.0-0.7); EOSINOPHILS % (AUTO) 2.8 % (0.0-6.0); HEMATOCRIT 27 % (39-51); HEMOGLOBIN 8.1 g/dL (13.5-17.5); LYMPHOCYTES # (AUTO) 1.6 K/uL (0.8-4.8); LYMPHOCYTES % (AUTO) 14.2 % (20.0-44.0); MEAN CORPUSCULAR HEMOGLOBIN 24 PG (26.0-33.0); MEAN CORPUSCULAR HGB CONC 30 g/dl (31.0-36.0); MEAN CORPUSCULAR VOLUME 81 fL (80-96); MONOCYTES # (AUTO) 1.3 K/uL (0.1-1.30); MONOCYTES % (AUTO) 12.2 % (2.0-12.0); NEUTROPHILS # (AUTO) 7.7 K/uL (1.8-8.9); NEUTROPHILS % (AUTO) 70.2 % (43.0-81.0); PLATELET COUNT (AUTO) 474 K/uL (150-450); RED BLOOD CELL COUNT(AUTO) 3.36 MIL/uL (4.5-6.0); RED CELL DISTRIBUTION WIDTH 24.6 % (11.5-15.0)
[2023-08-27] MEDS: LEVETIRACETAM SOL (5 ML) 100 MG/ML UDC GT SCH (08:32)
[2023-08-27] MEDS: LACOSAMIDE ORAL SOLN 50 MG/5 ML UDC GT SCH (08:32)
[2023-08-27] MEDS: AMLODIPINE BESYLATE 5 MG TABLET GT SCH (08:33)
[2023-08-27] MEDS: METOPROLOL TARTRATE 25 MG TABLET GT SCH (08:33)
[2023-08-27] MEDS: CHLORHEXIDINE GLUCONATE 15 ML UDC MM SCH (08:34)
[2023-08-27] MEDS: METOCLOPRAMIDE HCL 10 MG TABLET GT SCH (08:34)
[2023-08-27] MEDS: ASPIRIN 81 MG TAB.CHEW GT SCH (08:34)
[2023-08-27] MEDS ORDERED: METOPROLOL TARTRATE 25 MG TABLET GT SCH (09:00)
[2023-08-27] MEDS ORDERED: GLYCOPYRROLATE 0.2 MG/ML VIAL GT SCH (09:00)
[2023-08-27] MEDS: GLYCOPYRROLATE 1 MG TABLET GT SCH (09:19)
[2023-08-27] MEDS ORDERED: IPRATROPIUM NEB FS 0.5 MG/2.5 ML AMPUL.NEB HHN PRN (10:15)
[2023-08-27 10:43] LABS: CREATININE 0.9 mg/dL (0.6-1.3); MAGNESIUM 1.9 mg/dL (1.8-2.4); PHOSPHORUS 2.9 mg/dL (2.5-4.9); POTASSIUM 3.6 mmol/L (3.5-5.1)
[2023-08-27] MEDS: CEFEPIME 2 GM in IV D5W 100 ML IV SCH ×2 (10:59→20:32)
[2023-08-27 12:58] LABS: THYROID STIMULATING HORMONE 1.14 uIU/mL (0.358-3.74)
[2023-08-27] MEDS: VANCOMYCIN 750 MG in IV D5W 250 ML IV SCH (14:10)
[2023-08-27] MEDS: ACETAMINOPHEN 650 MG/20.3 ML UDC GT PRN (20:57)
[2023-08-27] MEDS: SENNOSIDES 8.6 MG TABLET GT SCH (21:21)
[2023-08-28] VITALS (9 sets, daily range): BP systolic 108–131; BP diastolic 59–95; TEMP 97.4–99.3; O2SAT 94–100
[2023-08-28 07:07] LABS: BASOPHILS # (AUTO) 0.1 K/uL (0.0-0.2); BASOPHILS % (AUTO) 0.6 % (0.0-2.0); EOSINOPHILS # (AUTO) 0.6 K/uL (0.0-0.7); EOSINOPHILS % (AUTO) 4.6 % (0.0-6.0); HEMATOCRIT 28 % (39-51); LYMPHOCYTES # (AUTO) 1.9 K/uL (0.8-4.8); LYMPHOCYTES % (AUTO) 16.2 % (20.0-44.0); MEAN CORPUSCULAR HEMOGLOBIN 24 PG (26.0-33.0); MEAN CORPUSCULAR HGB CONC 29 g/dl (31.0-36.0); MEAN CORPUSCULAR VOLUME 81 fL (80-96); MONOCYTES # (AUTO) 1.7 K/uL (0.1-1.30); NEUTROPHILS # (AUTO) 7.8 K/uL (1.8-8.9); NEUTROPHILS % (AUTO) 64.6 % (43.0-81.0); PLATELET COUNT (AUTO) 422 K/uL (150-450); RED BLOOD CELL COUNT(AUTO) 3.38 MIL/uL (4.5-6.0)
[2023-08-28 08:28] LABS: CALCIUM, SERUM 8.7 mg/dL (8.5-10.1); PHOSPHORUS 2.9 mg/dL (2.5-4.9); POTASSIUM 3.6 mmol/L (3.5-5.1)
[2023-08-28 10:22] LABS: PLATELET ESTIMATE ADEQUATE
[2023-08-28 10:23] LABS: ANISOCYTOSIS 2+
[2023-08-28 10:24] LABS: STOMATOCYTES 1+
[2023-08-28] MEDS: SOD FERRIC GLUC 125 MG in IV NS 0.9% 100 ML IV SCH (13:50)
[2023-08-29] VITALS (8 sets, daily range): BP systolic 92–132; BP diastolic 58–100; TEMP 97.6–98.2; O2SAT 91–100
[2023-08-29 07:35] LABS: BASOPHILS # (AUTO) 0.1 K/uL (0.0-0.2); BASOPHILS % (AUTO) 0.7 % (0.0-2.0); EOSINOPHILS # (AUTO) 0.8 K/uL (0.0-0.7); EOSINOPHILS % (AUTO) 7.5 % (0.0-6.0); HEMATOCRIT 26 % (39-51); HEMOGLOBIN 7.7 g/dL (13.5-17.5); LYMPHOCYTES % (AUTO) 9.4 % (20.0-44.0); MEAN CORPUSCULAR HEMOGLOBIN 24 PG (26.0-33.0); MEAN CORPUSCULAR HGB CONC 30 g/dl (31.0-36.0); MEAN CORPUSCULAR VOLUME 81 fL (80-96); MONOCYTES # (AUTO) 0.9 K/uL (0.1-1.30); MONOCYTES % (AUTO) 9.2 % (2.0-12.0); NEUTROPHILS # (AUTO) 7.4 K/uL (1.8-8.9); NEUTROPHILS % (AUTO) 73.2 % (43.0-81.0); PLATELET COUNT (AUTO) 479 K/uL (150-450); RED BLOOD CELL COUNT(AUTO) 3.21 MIL/uL (4.5-6.0); RED CELL DISTRIBUTION WIDTH 24.4 % (11.5-15.0); WHITE BLOOD COUNT (AUTO) 10.1 K/uL (4.3-11.0)
[2023-08-29 07:50] LABS: CALCIUM, SERUM 8.7 mg/dL (8.5-10.1); CREATININE 0.8 mg/dL (0.6-1.3); MAGNESIUM 2.1 mg/dL (1.8-2.4); PHOSPHORUS 3.3 mg/dL (2.5-4.9); POTASSIUM 3.5 mmol/L (3.5-5.1)
[2023-08-29 10:40] LABS: PLATELET ESTIMATE INCREASED
[2023-08-29 10:41] LABS: ANISOCYTOSIS 1+; HYPOCHROMASIA 1+; STOMATOCYTES 1+
[2023-08-29] MEDS: TOBRAMYCIN/DEXAMETH OPHTH DORPS 2.5 ML BOTTLE LEFTEYE SCH (17:28)
[2023-08-29] MEDS: TOBRAMYCIN/DEXAMETH OPHTH DORPS 2.5 ML BOTTLE RIGHTEYE SCH (17:28)
[2023-08-30] VITALS: BP 106/65; TEMP 97.7; O2SAT 100
[2023-08-30 04:00] VITALS: BP 111/62; TEMP 97.6; O2SAT 100
[2023-08-30 08:00] VITALS: BP 115/93; TEMP 98.3; O2SAT 100
[2023-08-30 08:30] LABS: BASOPHILS # (AUTO) 0.1 K/uL (0.0-0.2); BASOPHILS % (AUTO) 0.7 % (0.0-2.0); EOSINOPHILS # (AUTO) 0.8 K/uL (0.0-0.7); HEMATOCRIT 26 % (39-51); HEMOGLOBIN 7.7 g/dL (13.5-17.5); LYMPHOCYTES # (AUTO) 1.3 K/uL (0.8-4.8); MEAN CORPUSCULAR HEMOGLOBIN 24 PG (26.0-33.0); MEAN CORPUSCULAR HGB CONC 29 g/dl (31.0-36.0); MEAN CORPUSCULAR VOLUME 83 fL (80-96); MONOCYTES # (AUTO) 0.9 K/uL (0.1-1.30); MONOCYTES % (AUTO) 10.5 % (2.0-12.0); NEUTROPHILS # (AUTO) 5.6 K/uL (1.8-8.9); NEUTROPHILS % (AUTO) 64.8 % (43.0-81.0); PLATELET COUNT (AUTO) 499 K/uL (150-450); RED BLOOD CELL COUNT(AUTO) 3.17 MIL/uL (4.5-6.0); RED CELL DISTRIBUTION WIDTH 25.2 % (11.5-15.0); WHITE BLOOD COUNT (AUTO) 8.7 K/uL (4.3-11.0)
[2023-08-30 09:23] LABS: CALCIUM, SERUM 8.8 mg/dL (8.5-10.1); CREATININE 0.9 mg/dL (0.6-1.3); MAGNESIUM 2.3 mg/dL (1.8-2.4); PHOSPHORUS 2.9 mg/dL (2.5-4.9); POTASSIUM 4.4 mmol/L (3.5-5.1)
[2023-08-30 10:52] LABS: ANISOCYTOSIS 2+; HYPOCHROMASIA 1+; PLATELET ESTIMATE INCREASED
[2023-08-30 10:53] LABS: STOMATOCYTES 1+
[2023-08-30 12:00] VITALS: BP 101/65; TEMP 97.9; O2SAT 100
[2023-08-30 16:00] VITALS: BP 116/72; TEMP 97.8; O2SAT 100
[2023-08-30 20:00] VITALS: BP 117/73; TEMP 97.5; O2SAT 100
[2023-08-30] MEDS: SULFAMETH/TRIMETH 800/160 MG 1 UDTAB TABLET GT SCH (20:50)
[2023-08-30] MEDS: COLISTIMETHATE SODIUM 150 MG CBA VIAL NEB SCH (21:13)
[2023-08-30] MEDS ORDERED: LACOSAMIDE ORAL SOLN 50 MG/5 ML UDC ONE (22:08)
[2023-08-31 00:04] VITALS: BP 98/61; TEMP 97.6; O2SAT 100
[2023-08-31 04:00] VITALS: BP 109/73; TEMP 97.5; O2SAT 99
[2023-08-31 07:42] VITALS: O2SAT 91
[2023-08-31 08:00] VITALS: BP 94/60; TEMP 98.1; O2SAT 90
[2023-08-31] MEDS: Z GUARD REMEDY 4 OZ OINT TP PRN (08:19)
[2023-08-31] MEDS ORDERED: VANCOMYCIN 1 GM in IV D5W 250ml IV SCH (09:00)
[2023-08-31 12:00] VITALS: BP 95/61; TEMP 98.8; O2SAT 98
[2023-08-31] MEDS ORDERED: Sulfameth/Trimeth 800/160 Mg GT (13:14)
[2023-08-31] MEDS ORDERED: ASPI-1169 GT (13:14)
[2023-08-31] MEDS ORDERED: COLI150V12 NEB (13:14)
[2023-08-31] MEDS ORDERED: TOBR2.5D RIGHTEYE (13:15)
[2023-08-31 16:44] LABS: BASOPHILS # (AUTO) 0.1 K/uL (0.0-0.2); BASOPHILS % (AUTO) 1.6 % (0.0-2.0); EOSINOPHILS # (AUTO) 0.6 K/uL (0.0-0.7); EOSINOPHILS % (AUTO) 7.7 % (0.0-6.0); HEMATOCRIT 28 % (39-51); HEMOGLOBIN 8.2 g/dL (13.5-17.5); LYMPHOCYTES % (AUTO) 12.8 % (20.0-44.0); MEAN CORPUSCULAR HEMOGLOBIN 24 PG (26.0-33.0); MEAN CORPUSCULAR HGB CONC 30 g/dl (31.0-36.0); MEAN CORPUSCULAR VOLUME 82 fL (80-96); MONOCYTES # (AUTO) 0.9 K/uL (0.1-1.30); MONOCYTES % (AUTO) 11.1 % (2.0-12.0); NEUTROPHILS # (AUTO) 5.5 K/uL (1.8-8.9); NEUTROPHILS % (AUTO) 66.8 % (43.0-81.0); PLATELET COUNT (AUTO) 516 K/uL (150-450); RED BLOOD CELL COUNT(AUTO) 3.35 MIL/uL (4.5-6.0); RED CELL DISTRIBUTION WIDTH 24.9 % (11.5-15.0); WHITE BLOOD COUNT (AUTO) 8.2 K/uL (4.3-11.0)
[2023-08-31 17:56] LABS: CALCIUM, SERUM 8.7 mg/dL (8.5-10.1); CREATININE 1.1 mg/dL (0.6-1.3); PHOSPHORUS 2.8 mg/dL (2.5-4.9); POTASSIUM 4.6 mmol/L (3.5-5.1)
[2023-08-31 18:27] LABS: BAND % (MANUAL) 2 % (0.0-5.0); EOSINOPHILS % (MANUAL) 4 % (0-4); HYPOCHROMASIA 1+; LYMPHOCYTES % (MANUAL) 16 % (16-48); MONOCYTES % (MANUAL) 7 % (0-11.0); NEUTROPHILS % (MANUAL) 71 (42-76); PLATELET ESTIMATE INCRE
[2023-08-31 18:28] LABS: ANISOCYTOSIS 1+; STOMATOCYTES 1+
== END 2023-08-31 17:20 | DRG 720 ==
LOC: ER 14:11 → TELE 19:23
PROVIDERS: ADMIT Nurse Practitioner Acute Care; ATTEND Nurse Practitioner Acute Care
PROC: 5A1955Z Respiratory Ventilation, Greater than 96 Consecutive Hours (ICD-10-PCS; principal; 2023-08-26)
DX: A41.9 Sepsis, unspecified organism (principal); J96.21 Acute and chronic respiratory failure with hypoxia; J95.851 Ventilator associated pneumonia; G93.41 Metabolic encephalopathy; I50.33 Acute on chronic diastolic (congestive) heart failure; I21.A1 Myocardial infarction type 2; E44.1 Mild protein-calorie malnutrition; J15.69 Pneumonia due to other Gram-negative bacteria; J90 Pleural effusion, not elsewhere classified; Z93.0 Tracheostomy status; Z99.11 Dependence on respirator [ventilator] status; I11.0 Hypertensive heart disease with heart failure; R53.2 Functional quadriplegia; Z20.822 Contact with and (suspected) exposure to COVID-19; D63.8 Anemia in other chronic diseases classified elsewhere; D75.839 Thrombocytosis, unspecified; E03.9 Hypothyroidism, unspecified; I25.10 Atherosclerotic heart disease of native coronary artery without angina pectoris; N39.0 Urinary tract infection, site not specified; K83.1 Obstruction of bile duct; E88.09 Other disorders of plasma-protein metabolism, not elsewhere classified; Z93.1 Gastrostomy status; Z98.2 Presence of cerebrospinal fluid drainage device; Z79.899 Other long term (current) drug therapy; G40.909 Epilepsy, unspecified, not intractable, without status epilepticus; G93.1 Anoxic brain damage, not elsewhere classified; R73.9 Hyperglycemia, unspecified; K21.9 Gastro-esophageal reflux disease without esophagitis; Y83.3 Surgical operation with formation of external stoma as the cause of abnormal reaction of the patient, or of later complication, without mention of misadventure at the time of the procedure; Y92.129 Unspecified place in nursing home as the place of occurrence of the external cause; E78.5 Hyperlipidemia, unspecified; R13.10 Dysphagia, unspecified; Z68.26 Body mass index [BMI] 26.0-26.9, adult; D50.9 Iron deficiency anemia, unspecified
CPT/HCPCS: 31720; 36415; 36600; 71045-TC; 76604-TC; 80048-TC; 80061-TC; 80076-TC; 80202-TC; 81001; 82728-TC; 82962-TC; 83540-TC; 83605-TC; 83735-TC; 83880; 84100-TC; 84443-TC; 84484-TC; 85025-TC; 85730-TC; 87040-TC; 87081-TC; 87086-TC; 93307-TC; 94002-TC; 94003-TC; 94760-TC; 94762-TC; 94799-TC; 99082-TC; A4223; A4623; G0378; J0692; J0770; J1650; J1815; J1953; J2916; J3370; J3371; J3490; J7030; J7050; J7060; J8597

== ENCOUNTER 2023-12-10 10:53 | Inpatient (IN) | payer MEDICAID ==
[2023-12-10] VITALS (13 sets, daily range): BP systolic 97–122; BP diastolic 54–72; TEMP 99–99.5; O2SAT 99–100
[~2023-12-10] VITALS: Ht 170.2 cm; Wt 75.7 kg
[~2023-12-10 10:53] MED LIST changes: -ACET100V5 NEB; +AMIN30LI25 GT; +ASPI-1169 GT; -CEFE2FRO IV; +COLI150V12 NEB; +LACO200T2 GT; +LORA2VIA6 IM; +MAGN400O6 GT; +MELA3TAB41 GT; +METO-295 GT; +SENN-261 GT; +Sulfameth/Trimeth 800/160 Mg GT; +TOBR2.5D RIGHTEYE; -VANC1PLA9 IV; -ZOLP5TAB8 PO
[2023-12-10] MEDS ORDERED: LORAZEPAM INJ 2 MG/ML VIAL IM PRN (12:30)
[2023-12-10] MEDS ORDERED: BISACODYL SUPP (10 MG) 10 MG/SUPP.RECT SUPP.RECT RC PRN (12:30)
[2023-12-10] MEDS ORDERED: MAGNESIUM HYDROXIDE 30 ML UDC GT PRN (12:30)
[2023-12-10] MEDS ORDERED: IPRATROPIUM NEB FS 0.5 MG/2.5 ML AMPUL.NEB HHN PRN (12:30)
[2023-12-10] MEDS ORDERED: METOCLOPRAMIDE HCL 10 MG TABLET GT SCH ×2 (13:00→13:02)
[2023-12-10] MEDS ORDERED: ONDANSETRON HCL 4 MG/5 ML SOLUTION GT PRN (13:00)
[2023-12-10] MEDS ORDERED: HYDROGEN PEROXIDE 480 ML BOTTLE TP PRN (13:30)
[2023-12-10] MEDS ORDERED: ACETAMINOPHEN 325 MG TABLET PO PRN (13:30)
[2023-12-10] MEDS ORDERED: HYDROGEN PEROXIDE 480 ML BOTTLE TP SCH (13:30)
[2023-12-10] MEDS ORDERED: Z GUARD REMEDY 4 OZ OINT TP PRN (13:30)
[2023-12-10] MEDS ORDERED: MAGNESIUM HYDROXIDE 30 ML UDC PO PRN (13:30)
[2023-12-10] MEDS ORDERED: ZOLPIDEM TARTRATE 5 MG TABLET GT PRN (13:30)
[2023-12-10] MEDS ORDERED: MAG HYDROX/AL HYDROX/SIMETH 30 ML UDC GT PRN (13:30)
[2023-12-10] MEDS ORDERED: ONDANSETRON HCL/PF 4 MG/2 ML VIAL IVP PRN (13:30)
[2023-12-10] MEDS: IV D5/0.45 NACL 1,000 ML IV PRN (14:09)
[2023-12-10] MEDS: ALBUTEROL FS 2.5 MG/3 ML VIAL.NEB NEB PRN (14:11)
[2023-12-10] MEDS: IPRATROPIUM NEB FS 0.5 MG/2.5 ML AMPUL.NEB HHN SCH (14:11)
[2023-12-10 14:31] LABS: BASOPHILS % (AUTO) 0.4 % (0.0-2.0); EOSINOPHILS # (AUTO) 0.5 K/uL (0.0-0.7); EOSINOPHILS % (AUTO) 5.4 % (0.0-6.0); HEMATOCRIT 26 % (39-51); LYMPHOCYTES # (AUTO) 1.6 K/uL (0.8-4.8); LYMPHOCYTES % (AUTO) 15.5 % (20.0-44.0); MEAN CORPUSCULAR HEMOGLOBIN 26 PG (26.0-33.0); MEAN CORPUSCULAR HGB CONC 30 g/dl (31.0-36.0); MEAN CORPUSCULAR VOLUME 85 fL (80-96); MONOCYTES # (AUTO) 0.9 K/uL (0.1-1.30); MONOCYTES % (AUTO) 8.7 % (2.0-12.0); PLATELET COUNT (AUTO) 473 K/uL (150-450); RED BLOOD CELL COUNT(AUTO) 3.11 MIL/uL (4.5-6.0); RED CELL DISTRIBUTION WIDTH 21.4 % (11.5-15.0)
[2023-12-10 14:41] LABS: INR 1.08 (0.91-1.10); PROTHROMBIN TIME 11.4 SECS (9.2-11.1)
[2023-12-10 14:45] LABS: ALANINE AMINOTRANSFERASE 49 U/L (12-78); ALBUMIN 1.7 g/dL (3.4-5.0); ALKALINE PHOSPHATASE 156 U/L (46-116); ASPARTATE AMINOTRANSFERASE 19 U/L (15-37); BILIRUBIN,TOTAL 0.3 mg/dL (0.2-1.0); CALCIUM, SERUM 8.6 mg/dL (8.5-10.1); CARBON DIOXIDE 39 mmol/L (21-32); CHLORIDE 111 mmol/L (98-107); CREATININE 0.9 mg/dL (0.6-1.3); GLUCOSE 119 mg/dL (74-106); POTASSIUM 3.6 mmol/L (3.5-5.1); SODIUM SERUM 154 mmol/L (136-145); TOTAL PROTEIN, SERUM 8.5 g/dL (6.4-8.2); UREA NITROGEN, BLOOD 56 mg/dL (7-18)
[2023-12-10] MEDS: JEVITY 1.2 CAL 1,000 ML BOTTLE GT PRN (14:49)
[2023-12-10 14:55] LABS: LACTIC ACID 1.5 mmol/L (0.4-2.0)
[2023-12-10] MEDS ORDERED: IPRATROPIUM NEB FS 0.5 MG/2.5 ML AMPUL.NEB HHN SCH (15:30)
[2023-12-10] MEDS ORDERED: ALBUTEROL FS 2.5 MG/0.5 ML VIAL.NEB HHN SCH (15:30)
[2023-12-10 15:40] LABS: APPEARANCE,URINE SLIGHTLY CLOUDY (CLEAR); BILIRUBIN,URINE NEGATIVE (NEGATIVE); BLOOD, URINE 3+ Ery/uL (NEGATIVE); COLOR,URINE YELLOW (YELLOW); KETONES,URINE NEGATIVE (NEGATIVE); LEUKOCYTE ESTERASE ,URINE 3+ (NEGATIVE); NITRITE, URINE NEGATIVE (NEGATIVE); PROTEIN,URINE 1+ mg/dl (NEGATIVE); UGLUCOSE NEGATIVE (NEGATIVE)
[2023-12-10 15:51] LABS: ADD URINE CULTURE YES; BACTERIA,URINE 2+ /HPF (None Seen); MUCUS,URINE Moderate /LPF (None Seen); SQUAMOUS EPITHELIAL CELL,UR None Seen /HPF (None Seen); WBC,URINE 51-80 /HPF (0-3)
[2023-12-10] MEDS: ACETYLCYSTEINE 10% SOLN 400 MG/4 ML VIAL NEB SCH (15:55)
[2023-12-10] MEDS: CHLORHEXIDINE GLUCONATE 15 ML UDC MM SCH (16:50)
[2023-12-10] MEDS: METOCLOPRAMIDE HCL 10 MG TABLET GT SCH (16:50)
[2023-12-10] MEDS ORDERED: hydrALAZINE HCL IV 20 MG VIAL IV PRN (17:30)
[2023-12-10] MEDS: POLYVINYL ALCOHOL 15 ML BOTTLE EACHEYE SCH (18:11)
[2023-12-10] MEDS ORDERED: DEXTROSE 50%-WATER 50 ML DISP.SYRIN IV PRN (19:30)
[2023-12-10] MEDS ORDERED: INSULIN REGULAR, HUMAN 100 UNIT/ML 3 ML VIAL SQ PRN (19:30)
[2023-12-10] MEDS: MEROPENEM 1 G in IV NS 0.9% 100 ML IV SCH (21:42)
[2023-12-10] MEDS: METOPROLOL TARTRATE 25 MG TABLET GT SCH (21:43)
[2023-12-10] MEDS: SENNOSIDES 8.6 MG TABLET GT SCH (21:46)
[2023-12-10] MEDS: LEVETIRACETAM SOL (5 ML) 100 MG/ML UDC GT SCH (21:46)
[2023-12-10] MEDS: LACOSAMIDE ORAL SOLN 50 MG/5 ML UDC GT SCH (21:46)
[2023-12-10] MEDS: VITAMINS A AND D 56.7 GM TUBE TP SCH (21:49)
[2023-12-11] VITALS (26 sets, daily range): BP systolic 94–141; BP diastolic 57–72; TEMP 97.6–99.1; O2SAT 94–100
[2023-12-11] MEDS ORDERED: BLOOD SUGAR DIAGNOSTIC 1 EACH STRIP IN SCH
[2023-12-11 04:44] LABS: BASOPHILS % (AUTO) 0.4 % (0.0-2.0); EOSINOPHILS # (AUTO) 0.3 K/uL (0.0-0.7); HEMATOCRIT 25 % (39-51); HEMOGLOBIN 7.7 g/dL (13.5-17.5); LYMPHOCYTES # (AUTO) 1.2 K/uL (0.8-4.8); LYMPHOCYTES % (AUTO) 14.3 % (20.0-44.0); MEAN CORPUSCULAR HEMOGLOBIN 26 PG (26.0-33.0); MEAN CORPUSCULAR HGB CONC 31 g/dl (31.0-36.0); MEAN CORPUSCULAR VOLUME 83 fL (80-96); MONOCYTES # (AUTO) 0.8 K/uL (0.1-1.30); MONOCYTES % (AUTO) 9.5 % (2.0-12.0); NEUTROPHILS # (AUTO) 6.2 K/uL (1.8-8.9); NEUTROPHILS % (AUTO) 71.8 % (43.0-81.0); PLATELET COUNT (AUTO) 452 K/uL (150-450); RED BLOOD CELL COUNT(AUTO) 3.01 MIL/uL (4.5-6.0); RED CELL DISTRIBUTION WIDTH 22.1 % (11.5-15.0); WHITE BLOOD COUNT (AUTO) 8.6 K/uL (4.3-11.0)
[2023-12-11 04:59] LABS: CALCIUM, SERUM 8.4 mg/dL (8.5-10.1); CARBON DIOXIDE 39 mmol/L (21-32); CHLORIDE 112 mmol/L (98-107); CREATININE 0.8 mg/dL (0.6-1.3); GLUCOSE 132 mg/dL (74-106); PHOSPHORUS 2.8 mg/dL (2.5-4.9); POTASSIUM 3.3 mmol/L (3.5-5.1); SODIUM SERUM 152 mmol/L (136-145); UREA NITROGEN, BLOOD 46 mg/dL (7-18)
[2023-12-11 05:16] LABS: CHOLESTEROL 133 mg/dL (<200); HDL CHOLESTEROL 27 mg/dL (40-60); LDL 77 mg/dL (0-99); TRIGLYCERIDES 175 mg/dL (30-150)
[2023-12-11] MEDS: LEVOTHYROXINE SODIUM 50 MCG TABLET GT SCH (06:00)
[2023-12-11] MEDS: PANTOPRAZOLE 40 MG VIAL IV SCH (08:22)
[2023-12-11] MEDS: AMLODIPINE BESYLATE 5 MG TABLET GT SCH (08:28)
[2023-12-11] MEDS ORDERED: PROSOURCE / PROSTAT (PYXIS) 30 ML UDC GT SCH (09:00)
[2023-12-11] MEDS: GLUCERNA 1.2 1,000 ML BOTTLE NG PRN (09:05)
[2023-12-11] MEDS: GLYCOPYRROLATE 1 MG TABLET GT SCH (09:31)
[2023-12-11] MEDS: POTASSIUM CHLORIDE 20 MEQ POWDER PACKET NG SCH (09:35)
[2023-12-11] MEDS ORDERED: IV NS 0.9% 250 ML IV ONE (10:19)
[2023-12-11] MEDS ORDERED: CT SWABBABLE VALVE TRANS SET 1 EA INFUS.SET MC ONE (10:19)
[2023-12-11] MEDS ORDERED: IOHEXOL-350 100 ML VIAL IV ONE (10:19)
[2023-12-12] VITALS (33 sets, daily range): BP systolic 94–146; BP diastolic 57–87; TEMP 96.9–98; O2SAT 92–100
[2023-12-12 04:24] LABS: BASOPHILS % (AUTO) 0.1 % (0.0-2.0); EOSINOPHILS # (AUTO) 0.2 K/uL (0.0-0.7); EOSINOPHILS % (AUTO) 2.7 % (0.0-6.0); HEMATOCRIT 26 % (39-51); HEMOGLOBIN 7.9 g/dL (13.5-17.5); LYMPHOCYTES # (AUTO) 1.1 K/uL (0.8-4.8); LYMPHOCYTES % (AUTO) 14.8 % (20.0-44.0); MEAN CORPUSCULAR HEMOGLOBIN 26 PG (26.0-33.0); MEAN CORPUSCULAR HGB CONC 31 g/dl (31.0-36.0); MEAN CORPUSCULAR VOLUME 84 fL (80-96); MONOCYTES # (AUTO) 0.7 K/uL (0.1-1.30); MONOCYTES % (AUTO) 8.7 % (2.0-12.0); NEUTROPHILS # (AUTO) 5.5 K/uL (1.8-8.9); NEUTROPHILS % (AUTO) 73.7 % (43.0-81.0); PLATELET COUNT (AUTO) 454 K/uL (150-450); RED BLOOD CELL COUNT(AUTO) 3.02 MIL/uL (4.5-6.0); RED CELL DISTRIBUTION WIDTH 21.1 % (11.5-15.0); WHITE BLOOD COUNT (AUTO) 7.5 K/uL (4.3-11.0)
[2023-12-12 05:06] LABS: CALCIUM, SERUM 8.4 mg/dL (8.5-10.1); CARBON DIOXIDE 39 mmol/L (21-32); CHLORIDE 113 mmol/L (98-107); CREATININE 0.7 mg/dL (0.6-1.3); GLUCOSE 140 mg/dL (74-106); MAGNESIUM 2.8 mg/dL (1.8-2.4); PHOSPHORUS 2.5 mg/dL (2.5-4.9); POTASSIUM 3.3 mmol/L (3.5-5.1); SODIUM SERUM 155 mmol/L (136-145); UREA NITROGEN, BLOOD 33 mg/dL (7-18)
[2023-12-12] MEDS: FREE WATER VIA TUBE FEEDING GT SCH (11:11)
[2023-12-12] MEDS: POTASSIUM CHLORIDE 20 MEQ POWDER PACKET PO ONE (11:47)
[2023-12-13] VITALS (25 sets, daily range): BP systolic 102–139; BP diastolic 64–85; TEMP 96.8–98.1; O2SAT 94–100
[2023-12-13 05:18] LABS: CALCIUM, SERUM 8.5 mg/dL (8.5-10.1); CARBON DIOXIDE 31 mmol/L (21-32); CHLORIDE 110 mmol/L (98-107); CREATININE 0.9 mg/dL (0.6-1.3); GLUCOSE 115 mg/dL (74-106); POTASSIUM 3.6 mmol/L (3.5-5.1); SODIUM SERUM 148 mmol/L (136-145); UREA NITROGEN, BLOOD 29 mg/dL (7-18)
[2023-12-13] MEDS: PANTOPRAZOLE 40 MG/PACK PACK NG SCH (08:26)
[2023-12-13] MEDS: MEROPENEM 1 G in IV NS 0.9% 100 ML IV SCH (12:18)
[2023-12-14] VITALS (25 sets, daily range): BP systolic 92–139; BP diastolic 58–82; TEMP 97–98.1; O2SAT 93–100
[2023-12-14 04:53] LABS: BASOPHILS % (AUTO) 0.2 % (0.0-2.0); EOSINOPHILS # (AUTO) 0.3 K/uL (0.0-0.7); EOSINOPHILS % (AUTO) 3.9 % (0.0-6.0); HEMATOCRIT 26 % (39-51); LYMPHOCYTES # (AUTO) 1.2 K/uL (0.8-4.8); LYMPHOCYTES % (AUTO) 13.9 % (20.0-44.0); MEAN CORPUSCULAR HEMOGLOBIN 25 PG (26.0-33.0); MEAN CORPUSCULAR HGB CONC 31 g/dl (31.0-36.0); MEAN CORPUSCULAR VOLUME 83 fL (80-96); MONOCYTES # (AUTO) 0.8 K/uL (0.1-1.30); MONOCYTES % (AUTO) 9.9 % (2.0-12.0); NEUTROPHILS # (AUTO) 6.1 K/uL (1.8-8.9); NEUTROPHILS % (AUTO) 72.1 % (43.0-81.0); PLATELET COUNT (AUTO) 502 K/uL (150-450); RED BLOOD CELL COUNT(AUTO) 3.13 MIL/uL (4.5-6.0); RED CELL DISTRIBUTION WIDTH 21.7 % (11.5-15.0); WHITE BLOOD COUNT (AUTO) 8.4 K/uL (4.3-11.0)
[2023-12-14 05:03] LABS: CALCIUM, SERUM 8.6 mg/dL (8.5-10.1); CARBON DIOXIDE 30 mmol/L (21-32); CHLORIDE 108 mmol/L (98-107); CREATININE 0.8 mg/dL (0.6-1.3); GLUCOSE 133 mg/dL (74-106); MAGNESIUM 2.5 mg/dL (1.8-2.4); PHOSPHORUS 2.9 mg/dL (2.5-4.9); POTASSIUM 3.2 mmol/L (3.5-5.1); SODIUM SERUM 145 mmol/L (136-145); UREA NITROGEN, BLOOD 22 mg/dL (7-18)
[2023-12-14] MEDS: POTASSIUM CHLORIDE 20 MEQ POWDER PACKET NG SCH (12:02)
[2023-12-15] VITALS (30 sets, daily range): BP systolic 88–132; BP diastolic 54–81; TEMP 96.5–99.5; O2SAT 91–100
[2023-12-15] MEDS: IV NS 0.9% 250 ML IV PRN (00:20)
[2023-12-15 04:02] LABS: BASOPHILS # (AUTO) 0.1 K/uL (0.0-0.2); BASOPHILS % (AUTO) 0.5 % (0.0-2.0); EOSINOPHILS # (AUTO) 0.4 K/uL (0.0-0.7); HEMATOCRIT 25 % (39-51); HEMOGLOBIN 7.8 g/dL (13.5-17.5); LYMPHOCYTES # (AUTO) 1.5 K/uL (0.8-4.8); LYMPHOCYTES % (AUTO) 15.2 % (20.0-44.0); MEAN CORPUSCULAR HEMOGLOBIN 26 PG (26.0-33.0); MEAN CORPUSCULAR HGB CONC 31 g/dl (31.0-36.0); MEAN CORPUSCULAR VOLUME 83 fL (80-96); MONOCYTES # (AUTO) 0.9 K/uL (0.1-1.30); MONOCYTES % (AUTO) 9.6 % (2.0-12.0); NEUTROPHILS # (AUTO) 6.9 K/uL (1.8-8.9); NEUTROPHILS % (AUTO) 70.7 % (43.0-81.0); PLATELET COUNT (AUTO) 451 K/uL (150-450); RED BLOOD CELL COUNT(AUTO) 3.04 MIL/uL (4.5-6.0); RED CELL DISTRIBUTION WIDTH 21.5 % (11.5-15.0); WHITE BLOOD COUNT (AUTO) 9.8 K/uL (4.3-11.0)
[2023-12-15 04:40] LABS: CALCIUM, SERUM 7.9 mg/dL (8.5-10.1); CARBON DIOXIDE 32 mmol/L (21-32); CHLORIDE 107 mmol/L (98-107); CREATININE 0.7 mg/dL (0.6-1.3); GLUCOSE 110 mg/dL (74-106); MAGNESIUM 2.3 mg/dL (1.8-2.4); PHOSPHORUS 3.3 mg/dL (2.5-4.9); POTASSIUM 3.9 mmol/L (3.5-5.1); SODIUM SERUM 143 mmol/L (136-145); UREA NITROGEN, BLOOD 17 mg/dL (7-18)
[2023-12-16] VITALS (19 sets, daily range): BP systolic 92–132; BP diastolic 61–88; TEMP 96.5–98.4; O2SAT 91–100
[2023-12-16 04:24] LABS: CARBON DIOXIDE 27 mmol/L (21-32); CHLORIDE 104 mmol/L (98-107); CREATININE 0.8 mg/dL (0.6-1.3); GLUCOSE 114 mg/dL (74-106); POTASSIUM 3.8 mmol/L (3.5-5.1); SODIUM SERUM 138 mmol/L (136-145); UREA NITROGEN, BLOOD 16 mg/dL (7-18)
[2023-12-16] MEDS: FREE WATER VIA TUBE FEEDING GT SCH (12:35)
[2023-12-16] MEDS ORDERED: LACOSAMIDE ORAL SOLN 50 MG/5 ML UDC ONE (22:48)
[2023-12-17] VITALS: BP 120/71; TEMP 97.3; O2SAT 94
[2023-12-17 04:00] VITALS: BP 146/79; TEMP 97.2; O2SAT 97
[2023-12-17 07:32] LABS: CALCIUM, SERUM 8.6 mg/dL (8.5-10.1); CARBON DIOXIDE 25 mmol/L (21-32); CHLORIDE 106 mmol/L (98-107); CREATININE 0.6 mg/dL (0.6-1.3); GLUCOSE 97 mg/dL (74-106); POTASSIUM 4.2 mmol/L (3.5-5.1); SODIUM SERUM 139 mmol/L (136-145); UREA NITROGEN, BLOOD 11 mg/dL (7-18)
[2023-12-17 08:00] VITALS: BP 127/78; TEMP 97.3; O2SAT 100
[2023-12-17 12:00] VITALS: BP 128/75; TEMP 97.5; O2SAT 100
[2023-12-17 16:00] VITALS: BP 127/75; TEMP 97.8; O2SAT 100
[2023-12-17 20:00] VITALS: BP 136/71; TEMP 97.2; O2SAT 100
[2023-12-17] MEDS ORDERED: LACOSAMIDE ORAL SOLN 50 MG/5 ML UDC ONE (21:50)
[2023-12-18] VITALS (7 sets, daily range): BP systolic 101–130; BP diastolic 61–82; TEMP 97–98.6; O2SAT 99–100
[2023-12-18 07:35] LABS: CALCIUM, SERUM 9.3 mg/dL (8.5-10.1); CARBON DIOXIDE 32 mmol/L (21-32); CHLORIDE 106 mmol/L (98-107); CREATININE 0.5 mg/dL (0.6-1.3); GLUCOSE 106 mg/dL (74-106); SODIUM SERUM 141 mmol/L (136-145); UREA NITROGEN, BLOOD 13 mg/dL (7-18)
[2023-12-19] VITALS: BP 128/72; TEMP 96.4; O2SAT 100
[2023-12-19 04:00] VITALS: BP 112/68; TEMP 96.4; O2SAT 99
[2023-12-19 08:00] VITALS: BP 145/74; TEMP 96.8; O2SAT 99
[2023-12-19 12:00] VITALS: BP 118/65; TEMP 97.8; O2SAT 99
[2023-12-19 16:00] VITALS: BP 105/65; TEMP 97.9; O2SAT 99
[2023-12-19 20:00] VITALS: BP 133/80; TEMP 96; O2SAT 100
[2023-12-20] VITALS: BP 118/86; TEMP 96; O2SAT 100
[2023-12-20 04:00] VITALS: BP 133/87; TEMP 96.2; O2SAT 100
[2023-12-20 08:00] VITALS: BP 139/87; O2SAT 100
[2023-12-20 12:00] VITALS: BP 135/86; O2SAT 100
[2023-12-20 16:00] VITALS: BP 122/76; O2SAT 100
[2023-12-20 20:00] VITALS: BP 113/80; O2SAT 100
[2023-12-21] VITALS: BP 108/65; O2SAT 100
[2023-12-21 04:00] VITALS: BP 118/74; O2SAT 100
[2023-12-21 08:00] VITALS: BP 116/73; TEMP 97.6; O2SAT 100
[2023-12-21 12:00] VITALS: BP 123/76; TEMP 97.4; O2SAT 100
[2023-12-21 16:00] VITALS: BP 124/79; TEMP 98.3; O2SAT 99
[2023-12-21 20:00] VITALS: BP 134/77; O2SAT 100
[2023-12-22] VITALS (7 sets, daily range): BP systolic 104–121; BP diastolic 72–80; TEMP 97.1–97.2; O2SAT 96–100
[2023-12-23] VITALS: BP 104/61; TEMP 97.4; O2SAT 98
[2023-12-23 04:00] VITALS: BP 100/63; TEMP 97.7; O2SAT 97
[2023-12-23 07:56] LABS: BASOPHILS % (AUTO) 0.4 % (0.0-2.0); EOSINOPHILS # (AUTO) 0.1 K/uL (0.0-0.7); EOSINOPHILS % (AUTO) 0.9 % (0.0-6.0); HEMATOCRIT 32 % (39-51); HEMOGLOBIN 9.4 g/dL (13.5-17.5); MEAN CORPUSCULAR HEMOGLOBIN 25 PG (26.0-33.0); MEAN CORPUSCULAR HGB CONC 30 g/dl (31.0-36.0); MEAN CORPUSCULAR VOLUME 84 fL (80-96); MONOCYTES # (AUTO) 0.8 K/uL (0.1-1.30); MONOCYTES % (AUTO) 9.4 % (2.0-12.0); NEUTROPHILS # (AUTO) 6.7 K/uL (1.8-8.9); NEUTROPHILS % (AUTO) 77.3 % (43.0-81.0); PLATELET COUNT (AUTO) 554 K/uL (150-450); RED BLOOD CELL COUNT(AUTO) 3.77 MIL/uL (4.5-6.0); RED CELL DISTRIBUTION WIDTH 22.8 % (11.5-15.0); WHITE BLOOD COUNT (AUTO) 8.6 K/uL (4.3-11.0)
[2023-12-23 08:00] VITALS: BP 97/58; TEMP 98.6; O2SAT 97
[2023-12-23 08:31] LABS: CALCIUM, SERUM 8.2 mg/dL (8.5-10.1); CARBON DIOXIDE 26 mmol/L (21-32); CHLORIDE 104 mmol/L (98-107); CREATININE 0.8 mg/dL (0.6-1.3); GLUCOSE 96 mg/dL (74-106); MAGNESIUM 2.1 mg/dL (1.8-2.4); POTASSIUM 4.3 mmol/L (3.5-5.1); SODIUM SERUM 142 mmol/L (136-145); UREA NITROGEN, BLOOD 18 mg/dL (7-18)
[2023-12-23 12:00] VITALS: BP 119/65; TEMP 98.6; O2SAT 97
[2023-12-23 16:00] VITALS: BP 130/70; TEMP 98.8; O2SAT 97
[2023-12-23 20:00] VITALS: BP 118/74; TEMP 97.7; O2SAT 98
[2023-12-24] VITALS: BP_SYST 128; BP_SYST 132; BP_DIAS 67; BP_DIAS 75; TEMP 97; TEMP 98.8; O2SAT 98
[2023-12-24 04:00] VITALS: BP 135/82; TEMP 97.5; O2SAT 99
[2023-12-24 07:48] LABS: BASOPHILS % (AUTO) 0.2 % (0.0-2.0); EOSINOPHILS # (AUTO) 0.2 K/uL (0.0-0.7); EOSINOPHILS % (AUTO) 1.2 % (0.0-6.0); HEMATOCRIT 30 % (39-51); HEMOGLOBIN 8.9 g/dL (13.5-17.5); LYMPHOCYTES # (AUTO) 1.1 K/uL (0.8-4.8); LYMPHOCYTES % (AUTO) 8.2 % (20.0-44.0); MEAN CORPUSCULAR HEMOGLOBIN 25 PG (26.0-33.0); MEAN CORPUSCULAR HGB CONC 30 g/dl (31.0-36.0); MEAN CORPUSCULAR VOLUME 85 fL (80-96); MONOCYTES # (AUTO) 1.2 K/uL (0.1-1.30); MONOCYTES % (AUTO) 8.3 % (2.0-12.0); NEUTROPHILS # (AUTO) 11.5 K/uL (1.8-8.9); NEUTROPHILS % (AUTO) 82.1 % (43.0-81.0); PLATELET COUNT (AUTO) 445 K/uL (150-450); RED BLOOD CELL COUNT(AUTO) 3.53 MIL/uL (4.5-6.0); RED CELL DISTRIBUTION WIDTH 23.2 % (11.5-15.0)
[2023-12-24 08:05] VITALS: BP 128/79; TEMP 97.5; O2SAT 100
[2023-12-24 08:24] LABS: CALCIUM, SERUM 8.3 mg/dL (8.5-10.1); CARBON DIOXIDE 27 mmol/L (21-32); CHLORIDE 108 mmol/L (98-107); CREATININE 0.6 mg/dL (0.6-1.3); GLUCOSE 106 mg/dL (74-106); MAGNESIUM 2.1 mg/dL (1.8-2.4); PHOSPHORUS 2.9 mg/dL (2.5-4.9); SODIUM SERUM 145 mmol/L (136-145); UREA NITROGEN, BLOOD 17 mg/dL (7-18)
[2023-12-24 12:12] VITALS: BP 148/79; TEMP 99.9; O2SAT 100
[2023-12-24 16:01] VITALS: BP 139/80; TEMP 97.3; O2SAT 98
[2023-12-24 20:00] VITALS: BP 117/65; TEMP 97.7; O2SAT 97
[2023-12-25] VITALS (8 sets, daily range): BP systolic 113–150; BP diastolic 61–85; TEMP 97.1–100.2; O2SAT 96–100
[2023-12-25 07:57] LABS: BASOPHILS # (AUTO) 0.1 K/uL (0.0-0.2); BASOPHILS % (AUTO) 0.4 % (0.0-2.0); EOSINOPHILS # (AUTO) 0.4 K/uL (0.0-0.7); EOSINOPHILS % (AUTO) 3.1 % (0.0-6.0); HEMATOCRIT 29 % (39-51); HEMOGLOBIN 8.8 g/dL (13.5-17.5); LYMPHOCYTES # (AUTO) 1.5 K/uL (0.8-4.8); LYMPHOCYTES % (AUTO) 12.6 % (20.0-44.0); MEAN CORPUSCULAR HEMOGLOBIN 26 PG (26.0-33.0); MEAN CORPUSCULAR HGB CONC 31 g/dl (31.0-36.0); MEAN CORPUSCULAR VOLUME 84 fL (80-96); MONOCYTES # (AUTO) 1.4 K/uL (0.1-1.30); MONOCYTES % (AUTO) 11.5 % (2.0-12.0); NEUTROPHILS # (AUTO) 8.9 K/uL (1.8-8.9); NEUTROPHILS % (AUTO) 72.4 % (43.0-81.0); PLATELET COUNT (AUTO) 388 K/uL (150-450); RED BLOOD CELL COUNT(AUTO) 3.41 MIL/uL (4.5-6.0); RED CELL DISTRIBUTION WIDTH 23.6 % (11.5-15.0); WHITE BLOOD COUNT (AUTO) 12.3 K/uL (4.3-11.0)
[2023-12-25 08:47] LABS: CALCIUM, SERUM 9.3 mg/dL (8.5-10.1); CARBON DIOXIDE 30 mmol/L (21-32); CHLORIDE 107 mmol/L (98-107); CREATININE 0.7 mg/dL (0.6-1.3); GLUCOSE 114 mg/dL (74-106); POTASSIUM 4.1 mmol/L (3.5-5.1); SODIUM SERUM 141 mmol/L (136-145); UREA NITROGEN, BLOOD 16 mg/dL (7-18)
[2023-12-25 08:51] LABS: MAGNESIUM 2.1 mg/dL (1.8-2.4); PHOSPHORUS 2.5 mg/dL (2.5-4.9)
[2023-12-25] MEDS: ACETAMINOPHEN 650 MG/20.3 ML UDC GT PRN (09:51)
[2023-12-26] VITALS: BP 133/77; TEMP 97.5; O2SAT 100
[2023-12-26 04:00] VITALS: BP 129/71; TEMP 97.6; O2SAT 100
[2023-12-26 08:00] VITALS: BP 129/73; TEMP 97.6; O2SAT 100
[2023-12-26 12:00] VITALS: BP 125/75; TEMP 98.1; O2SAT 100
[2023-12-26 16:00] VITALS: BP 145/72; TEMP 97.9; O2SAT 100
[2023-12-26 20:00] VITALS: BP 116/67; TEMP 97.2; O2SAT 97
[2023-12-27] VITALS: BP 139/77; TEMP 97.5; O2SAT 100
[2023-12-27 04:00] VITALS: BP 130/69; TEMP 97.6; O2SAT 98
[2023-12-27 08:00] VITALS: BP 137/75; TEMP 97.4; O2SAT 99
[2023-12-27 09:18] LABS: BASOPHILS % (AUTO) 0.5 % (0.0-2.0); EOSINOPHILS # (AUTO) 1.1 K/uL (0.0-0.7); EOSINOPHILS % (AUTO) 9.7 % (0.0-6.0); HEMATOCRIT 30 % (39-51); HEMOGLOBIN 9.1 g/dL (13.5-17.5); LYMPHOCYTES # (AUTO) 1.1 K/uL (0.8-4.8); LYMPHOCYTES % (AUTO) 10.2 % (20.0-44.0); MEAN CORPUSCULAR HEMOGLOBIN 26 PG (26.0-33.0); MEAN CORPUSCULAR HGB CONC 31 g/dl (31.0-36.0); MEAN CORPUSCULAR VOLUME 83 fL (80-96); MONOCYTES # (AUTO) 0.9 K/uL (0.1-1.30); MONOCYTES % (AUTO) 8.3 % (2.0-12.0); NEUTROPHILS # (AUTO) 7.9 K/uL (1.8-8.9); NEUTROPHILS % (AUTO) 71.3 % (43.0-81.0); PLATELET COUNT (AUTO) 321 K/uL (150-450); RED BLOOD CELL COUNT(AUTO) 3.58 MIL/uL (4.5-6.0); RED CELL DISTRIBUTION WIDTH 22.8 % (11.5-15.0)
[2023-12-27 09:34] LABS: CALCIUM, SERUM 9.6 mg/dL (8.5-10.1); CARBON DIOXIDE 27 mmol/L (21-32); CHLORIDE 103 mmol/L (98-107); CREATININE 0.5 mg/dL (0.6-1.3); GLUCOSE 110 mg/dL (74-106); MAGNESIUM 1.9 mg/dL (1.8-2.4); SODIUM SERUM 140 mmol/L (136-145); UREA NITROGEN, BLOOD 18 mg/dL (7-18)
[2023-12-27 12:00] VITALS: BP 128/78; TEMP 97.2; O2SAT 100
[2023-12-27 16:00] VITALS: BP 114/67; TEMP 97; O2SAT 100
[2023-12-27 20:00] VITALS: BP 158/82; TEMP 97; O2SAT 100
[2023-12-28] VITALS (9 sets, daily range): BP systolic 130–143; BP diastolic 73–79; TEMP 95.9–98.2; O2SAT 99–100
[2023-12-28 09:33] LABS: BASOPHILS % (AUTO) 0.2 % (0.0-2.0); EOSINOPHILS # (AUTO) 0.9 K/uL (0.0-0.7); EOSINOPHILS % (AUTO) 9.1 % (0.0-6.0); HEMATOCRIT 31 % (39-51); HEMOGLOBIN 9.5 g/dL (13.5-17.5); LYMPHOCYTES % (AUTO) 10.3 % (20.0-44.0); MEAN CORPUSCULAR HEMOGLOBIN 26 PG (26.0-33.0); MEAN CORPUSCULAR HGB CONC 31 g/dl (31.0-36.0); MEAN CORPUSCULAR VOLUME 83 fL (80-96); MONOCYTES % (AUTO) 10.1 % (2.0-12.0); NEUTROPHILS # (AUTO) 6.7 K/uL (1.8-8.9); NEUTROPHILS % (AUTO) 70.3 % (43.0-81.0); PLATELET COUNT (AUTO) 324 K/uL (150-450); RED BLOOD CELL COUNT(AUTO) 3.68 MIL/uL (4.5-6.0); RED CELL DISTRIBUTION WIDTH 22.6 % (11.5-15.0); WHITE BLOOD COUNT (AUTO) 9.5 K/uL (4.3-11.0)
[2023-12-28 09:51] LABS: CALCIUM, SERUM 9.6 mg/dL (8.5-10.1); CARBON DIOXIDE 29 mmol/L (21-32); CHLORIDE 101 mmol/L (98-107); CREATININE 0.5 mg/dL (0.6-1.3); GLUCOSE 102 mg/dL (74-106); MAGNESIUM 1.9 mg/dL (1.8-2.4); PHOSPHORUS 4.1 mg/dL (2.5-4.9); POTASSIUM 4.2 mmol/L (3.5-5.1); SODIUM SERUM 136 mmol/L (136-145); UREA NITROGEN, BLOOD 21 mg/dL (7-18)
[2023-12-29] VITALS (7 sets, daily range): BP systolic 134–143; BP diastolic 72–77; TEMP 96.4–98.7; O2SAT 98–100
[2023-12-29 08:00] LABS: BASOPHILS % (AUTO) 0.3 % (0.0-2.0); EOSINOPHILS # (AUTO) 0.6 K/uL (0.0-0.7); EOSINOPHILS % (AUTO) 6.5 % (0.0-6.0); HEMATOCRIT 30 % (39-51); HEMOGLOBIN 9.3 g/dL (13.5-17.5); LYMPHOCYTES # (AUTO) 0.8 K/uL (0.8-4.8); LYMPHOCYTES % (AUTO) 8.7 % (20.0-44.0); MEAN CORPUSCULAR HEMOGLOBIN 26 PG (26.0-33.0); MEAN CORPUSCULAR HGB CONC 31 g/dl (31.0-36.0); MEAN CORPUSCULAR VOLUME 83 fL (80-96); MONOCYTES % (AUTO) 12.1 % (2.0-12.0); NEUTROPHILS # (AUTO) 6.3 K/uL (1.8-8.9); NEUTROPHILS % (AUTO) 72.4 % (43.0-81.0); PLATELET COUNT (AUTO) 293 K/uL (150-450); RED BLOOD CELL COUNT(AUTO) 3.65 MIL/uL (4.5-6.0); RED CELL DISTRIBUTION WIDTH 22.3 % (11.5-15.0); WHITE BLOOD COUNT (AUTO) 8.7 K/uL (4.3-11.0)
[2023-12-29 08:16] LABS: CARBON DIOXIDE 31 mmol/L (21-32); CHLORIDE 100 mmol/L (98-107); CREATININE 0.6 mg/dL (0.6-1.3); GLUCOSE 110 mg/dL (74-106); MAGNESIUM 1.8 mg/dL (1.8-2.4); PHOSPHORUS 3.4 mg/dL (2.5-4.9); POTASSIUM 4.2 mmol/L (3.5-5.1); SODIUM SERUM 134 mmol/L (136-145); UREA NITROGEN, BLOOD 19 mg/dL (7-18)
[2023-12-29] MEDS: MEROPENEM 500 MG in IV NS 0.9% 50 ML IV SCH (21:21)
[2023-12-30] VITALS (7 sets, daily range): BP systolic 132–157; BP diastolic 75–83; TEMP 97.5–99; O2SAT 97–100
[2023-12-31] VITALS (8 sets, daily range): BP systolic 127–142; BP diastolic 67–82; TEMP 98.1–99; O2SAT 95–100
[2023-12-31] MEDS: CHLORHEXIDINE GLUCONATE 15 ML UDC MM SCH (21:20)
[2024-01-01] VITALS (7 sets, daily range): BP systolic 111–145; BP diastolic 68–81; TEMP 97.3–98.1; O2SAT 98–100
[2024-01-02] VITALS: BP 135/74; TEMP 97.7; O2SAT 100
[2024-01-02 04:00] VITALS: BP 119/66; TEMP 97.9; O2SAT 100
[2024-01-02 08:00] VITALS: BP 143/80; TEMP 97.5; O2SAT 100
[2024-01-02 12:00] VITALS: BP 139/78; TEMP 97.3; TEMP 97.5; O2SAT 100
[2024-01-02] MEDS: MEROPENEM 1 G in IV NS 0.9% 100 ML IV SCH (12:47)
[2024-01-02] MEDS: prednisoLONE ACET 1% OPHT DROP 5 ML BOTTLE EACHEYE SCH (15:01)
[2024-01-02 16:00] VITALS: BP 138/77; TEMP 97.5; O2SAT 100
[2024-01-02 20:00] VITALS: BP 135/79; TEMP 97.8; O2SAT 100
[2024-01-03] VITALS: BP 137/91; TEMP 98.1; O2SAT 100
[2024-01-03 04:00] VITALS: BP 142/81; TEMP 98.4; O2SAT 100
[2024-01-03 08:00] VITALS: BP 124/70; TEMP 98.2; O2SAT 100
[2024-01-03 09:58] LABS: BASOPHILS % (AUTO) 0.5 % (0.0-2.0); EOSINOPHILS # (AUTO) 0.4 K/uL (0.0-0.7); EOSINOPHILS % (AUTO) 5.5 % (0.0-6.0); HEMATOCRIT 31 % (39-51); HEMOGLOBIN 9.7 g/dL (13.5-17.5); LYMPHOCYTES % (AUTO) 13.6 % (20.0-44.0); MEAN CORPUSCULAR HEMOGLOBIN 25 PG (26.0-33.0); MEAN CORPUSCULAR HGB CONC 31 g/dl (31.0-36.0); MEAN CORPUSCULAR VOLUME 81 fL (80-96); MONOCYTES # (AUTO) 0.7 K/uL (0.1-1.30); MONOCYTES % (AUTO) 9.7 % (2.0-12.0); NEUTROPHILS # (AUTO) 5.2 K/uL (1.8-8.9); NEUTROPHILS % (AUTO) 70.7 % (43.0-81.0); PLATELET COUNT (AUTO) 304 K/uL (150-450); RED BLOOD CELL COUNT(AUTO) 3.82 MIL/uL (4.5-6.0); RED CELL DISTRIBUTION WIDTH 21.5 % (11.5-15.0); WHITE BLOOD COUNT (AUTO) 7.3 K/uL (4.3-11.0)
[2024-01-03 10:10] LABS: ALANINE AMINOTRANSFERASE 29 U/L (12-78); ALKALINE PHOSPHATASE 140 U/L (46-116); ASPARTATE AMINOTRANSFERASE 17 U/L (15-37); BILIRUBIN,TOTAL 0.2 mg/dL (0.2-1.0); CALCIUM, SERUM 9.5 mg/dL (8.5-10.1); CARBON DIOXIDE 32 mmol/L (21-32); CHLORIDE 103 mmol/L (98-107); CREATININE 0.5 mg/dL (0.6-1.3); GLUCOSE 88 mg/dL (74-106); MAGNESIUM 1.9 mg/dL (1.8-2.4); PHOSPHORUS 3.4 mg/dL (2.5-4.9); SODIUM SERUM 139 mmol/L (136-145); TOTAL PROTEIN, SERUM 9.4 g/dL (6.4-8.2); UREA NITROGEN, BLOOD 20 mg/dL (7-18)
[2024-01-03 12:00] VITALS: BP 132/72; TEMP 98.6; O2SAT 99
[2024-01-03 16:00] VITALS: BP 145/75; TEMP 99; O2SAT 100
[2024-01-03 20:00] VITALS: BP 130/65; TEMP 101; O2SAT 98
[2024-01-04] VITALS (7 sets, daily range): BP systolic 112–140; BP diastolic 60–84; TEMP 96.8–98.8; O2SAT 97–100
[2024-01-05] VITALS: BP 115/68; TEMP 96.4; O2SAT 100
[2024-01-05 04:00] VITALS: BP 116/70; TEMP 97.2; O2SAT 100
[2024-01-05 05:39] VITALS: O2SAT 100
[2024-01-05 08:00] VITALS: BP 127/69; TEMP 97; O2SAT 99
[2024-01-05 12:00] VITALS: BP 110/71; TEMP 98; O2SAT 98
== END 2024-01-05 16:53 | DRG 44 ==
LOC: ICU 10:53 → TELE-TD 12-16 17:14 → TELE1 12-19 11:49
PROVIDERS: ADMIT Student in an Organized Health Care Education/Training Program; ATTEND Internal Medicine
PROC: 5A1955Z Respiratory Ventilation, Greater than 96 Consecutive Hours (ICD-10-PCS; principal; 2023-12-10)
DX: I60.9 Nontraumatic subarachnoid hemorrhage, unspecified (principal); J96.21 Acute and chronic respiratory failure with hypoxia; J95.851 Ventilator associated pneumonia; U07.1 COVID-19; E43 Unspecified severe protein-calorie malnutrition; J90 Pleural effusion, not elsewhere classified; G93.1 Anoxic brain damage, not elsewhere classified; D68.59 Other primary thrombophilia; E87.0 Hyperosmolality and hypernatremia; E87.1 Hypo-osmolality and hyponatremia; J96.22 Acute and chronic respiratory failure with hypercapnia; Y84.8 Other medical procedures as the cause of abnormal reaction of the patient, or of later complication, without mention of misadventure at the time of the procedure; Y92.89 Other specified places as the place of occurrence of the external cause; D63.8 Anemia in other chronic diseases classified elsewhere; Z99.11 Dependence on respirator [ventilator] status; Z93.0 Tracheostomy status; Z93.1 Gastrostomy status; R13.10 Dysphagia, unspecified; Z79.82 Long term (current) use of aspirin; Z79.890 Hormone replacement therapy; Z79.899 Other long term (current) drug therapy; Z79.51 Long term (current) use of inhaled steroids; Z98.2 Presence of cerebrospinal fluid drainage device; Z86.73 Personal history of transient ischemic attack (TIA), and cerebral infarction without residual deficits; N39.0 Urinary tract infection, site not specified; Z16.12 Extended spectrum beta lactamase (ESBL) resistance; Z87.798 Personal history of other (corrected) congenital malformations; I10 Essential (primary) hypertension; G40.909 Epilepsy, unspecified, not intractable, without status epilepticus; K56.7 Ileus, unspecified; Z68.26 Body mass index [BMI] 26.0-26.9, adult; J98.11 Atelectasis; N17.9 Acute kidney failure, unspecified; Z66 Do not resuscitate; Z87.440 Personal history of urinary (tract) infections; H11.429 Conjunctival edema, unspecified eye; E87.6 Hypokalemia; E83.42 Hypomagnesemia; E78.5 Hyperlipidemia, unspecified; E03.9 Hypothyroidism, unspecified; D75.839 Thrombocytosis, unspecified; K21.9 Gastro-esophageal reflux disease without esophagitis; E86.0 Dehydration; F03.90 Unspecified dementia, unspecified severity, without behavioral disturbance, psychotic disturbance, mood disturbance, and anxiety; L30.9 Dermatitis, unspecified; M10.9 Gout, unspecified; Z74.09 Other reduced mobility
CPT/HCPCS: 31720; 36415; 36600; 70450-TC; 70496-TC; 70498-TC; 71045-TC; 74018; 80048-TC; 80053-TC; 80061-TC; 81001; 82803-TC; 83605-TC; 83735-TC; 84100-TC; 84443-TC; 85025-TC; 85610-TC; 87040-TC; 87081-TC; 87086-TC; 94002-TC; 94003-TC; 94760-TC; 94762-TC; 94799-TC; 95819-TC; 99082-TC; A4223; A4623; A7526; G0378; J0360; J1815; J1953; J2185; J2470; J3490; J7030; J7050; J8597; Q9967

== ENCOUNTER 2024-01-05 16:06 | Inpatient (IN) | payer MEDICAID ==
[~2024-01-05] VITALS: Ht 170.2 cm; Wt 74.8 kg
[2024-01-05 17:00] VITALS: BP 133/73; TEMP 99.3; O2SAT 98
[2024-01-05] MEDS ORDERED: GLUCERNA 1.5 1,000 ML BOTTLE NG PRN (18:00)
[2024-01-05 18:01] VITALS: O2SAT 100
[2024-01-05] MEDS: LEVETIRACETAM SOL (5 ML) 100 MG/ML UDC GT SCH (18:30)
[2024-01-05] MEDS ORDERED: LEVETIRACETAM SOL (5 ML) 100 MG/ML UDC GT SCH (18:50)
[2024-01-05] MEDS ORDERED: COLISTIMETHATE SODIUM 150 MG CBA VIAL NEB SCH ×2 (18:50→21:00)
[2024-01-05] MEDS ORDERED: ACETAMINOPHEN 650 MG/20.3 ML UDC GT PRN (18:50)
[2024-01-05] MEDS ORDERED: POLYVINYL ALCOHOL 15 ML BOTTLE EACHEYE SCH (18:50)
[2024-01-05] MEDS ORDERED: LORAZEPAM INJ 2 MG/ML VIAL IM PRN (18:50)
[2024-01-05] MEDS ORDERED: MELATONIN 3 MG TABLET GT PRN (18:50)
[2024-01-05] MEDS ORDERED: HYDROGEN PEROXIDE 480 ML BOTTLE TP PRN (18:50)
[2024-01-05] MEDS ORDERED: ONDANSETRON 4 MG TAB.RAPDIS GT PRN (18:50)
[2024-01-05] MEDS ORDERED: DOCUSATE SODIUM LIQ 100 MG/10 ML UDC GT SCH (18:50)
[2024-01-05] MEDS ORDERED: FAMOTIDINE 40 MG/5 ML GT SCH (18:50)
[2024-01-05] MEDS: JEVITY 1.2 CAL 1,000 ML BOTTLE GT PRN (18:57)
[2024-01-05] MEDS ORDERED: IPRATROPIUM NEB FS 0.5 MG/2.5 ML AMPUL.NEB HHN SCH (19:05)
[2024-01-05] MEDS ORDERED: TUBERCULIN,PURIF.PROT.DERIV. 5 TU/0.1 ML VIAL ID SCH (19:05)
[2024-01-05] MEDS ORDERED: IPRATROPIUM NEB FS 0.5 MG/2.5 ML AMPUL.NEB HHN PRN (19:05)
[2024-01-05] MEDS ORDERED: ALBUTEROL FS 2.5 MG/3 ML VIAL.NEB NEB PRN (19:05)
[2024-01-05] MEDS ORDERED: ALBUTEROL FS 2.5 MG/0.5 ML VIAL.NEB HHN SCH (19:05)
[2024-01-05] MEDS: ALBUTEROL FS 2.5 MG/0.5 ML VIAL.NEB NEB SCH (19:30)
[2024-01-05] MEDS: IPRATROPIUM NEB FS 0.5 MG/2.5 ML AMPUL.NEB NEB SCH (19:30)
[2024-01-05] MEDS ORDERED: Z GUARD REMEDY 4 OZ OINT TP PRN (19:30)
[2024-01-05] MEDS ORDERED: IPRATROPIUM NEB FS 0.5 MG/2.5 ML AMPUL.NEB NEB PRN (19:30)
[2024-01-05] MEDS: HYDROGEN PEROXIDE 480 ML BOTTLE TP SCH (20:32)
[2024-01-05] MEDS: Z GUARD REMEDY 4 OZ OINT TP SCH (21:00)
[2024-01-05] MEDS: LACOSAMIDE ORAL SOLN 50 MG/5 ML UDC GT SCH (21:00)
[2024-01-05] MEDS: TRIAMCINOLONE ACETONIDE 0.1% CR 15 GM TUBE TP SCH (21:00)
[2024-01-05] MEDS: VITS A AND D/WHITE PET/LANOLIN 5 GM PACKET TP SCH (21:00)
[2024-01-05 21:54] VITALS: BP 122/65; TEMP 97.7; O2SAT 100
[2024-01-05] MEDS: METOPROLOL TARTRATE 25 MG TABLET GT SCH (21:56)
[2024-01-05] MEDS: SENNOSIDES 8.6 MG TABLET GT SCH (22:02)
[2024-01-06] MEDS: TOBRAMYCIN/DEXAMETH OPHTH DORPS 2.5 ML BOTTLE EACHEYE SCH (00:59)
[2024-01-06] MEDS: POLYVINYL ALCOHOL 15 ML BOTTLE EACHEYE SCH (00:59)
[2024-01-06] MEDS: FAMOTIDINE 40MG/5ML GT SCH (06:01)
[2024-01-06] MEDS: LEVETIRACETAM SOL (5 ML) 100 MG/ML UDC GT SCH (06:04)
[2024-01-06] MEDS: LEVOTHYROXINE SODIUM 50 MCG TABLET GT SCH (06:04)
[2024-01-06] MEDS: PROSOURCE / PROSTAT (PYXIS) 30 ML UDC GT SCH (08:00)
[2024-01-06 08:37] VITALS: BP 134/69; TEMP 97.2; O2SAT 100
[2024-01-06] MEDS: METOCLOPRAMIDE HCL 10 MG/10 ML UDC GT SCH (09:00)
[2024-01-06] MEDS: DOCUSATE SODIUM LIQ 100 MG/10 ML UDC GT SCH (09:00)
[2024-01-06] MEDS: CHLORHEXIDINE GLUCONATE 15 ML UDC MM SCH (09:00)
[2024-01-06] MEDS: GLYCOPYRROLATE 1 MG TABLET GT SCH (09:00)
[2024-01-06] MEDS: AMLODIPINE BESYLATE 5 MG TABLET GT SCH (09:00)
[2024-01-06] MEDS: ASPIRIN 81 MG TAB.CHEW GT SCH (09:00)
[2024-01-06] MEDS: ENOXAPARIN SODIUM 40 MG/0.4 ML DISP.SYRIN SQ SCH (15:00)
[2024-01-06 19:11] VITALS: BP 120/70; TEMP 94.1; O2SAT 98
[2024-01-06 19:43] VITALS: BP 122/74; TEMP 97.1; O2SAT 99
[2024-01-06 21:57] VITALS: BP 125/74
[2024-01-06 23:22] VITALS: O2SAT 100
[2024-01-07] VITALS (10 sets, daily range): BP systolic 118–146; BP diastolic 70–76; TEMP 97.1–97.6; O2SAT 98–100
[2024-01-07] MEDS: prednisoLONE ACET 1% OPHT DROP 5 ML BOTTLE EACHEYE SCH (09:00)
[2024-01-08] VITALS (13 sets, daily range): BP systolic 116–149; BP diastolic 66–82; TEMP 97–98.1; O2SAT 96–100
[2024-01-08] MEDS ORDERED: FAMOTIDINE (20 MG) 20 MG TABLET ONE (05:23)
[2024-01-08] MEDS: JEVITY 1.2 CAL 1,000 ML BOTTLE GT PRN (16:23)
[2024-01-08] MEDS ORDERED: ALBUTEROL FS 2.5 MG/3 ML VIAL.NEB NEB PRN (17:30)
[2024-01-08] MEDS ORDERED: IPRATROPIUM NEB FS 0.5 MG/2.5 ML AMPUL.NEB NEB PRN (17:30)
[2024-01-08] MEDS: IPRATROPIUM NEB FS 0.5 MG/2.5 ML AMPUL.NEB NEB SCH (19:30)
[2024-01-08] MEDS: ALBUTEROL FS 2.5 MG/3 ML VIAL.NEB NEB SCH (19:30)
[2024-01-09] MEDS: FAMOTIDINE (20 MG) 20 MG TABLET PO ONE (05:31)
[2024-01-09] MEDS: BACI/NEOM/POLY B OINT PKT 1 UDPKT PACKET TP SCH (10:07)
[2024-01-09] MEDS: Z GUARD REMEDY 4 OZ OINT TP SCH (10:08)
[2024-01-09 10:13] VITALS: O2SAT 97
[2024-01-09 10:14] VITALS: O2SAT 97
[2024-01-09 19:17] VITALS: BP 105/68; TEMP 98.2; O2SAT 98
[2024-01-09 22:44] VITALS: O2SAT 100
[2024-01-10 10:28] VITALS: O2SAT 99
[2024-01-10 20:09] VITALS: O2SAT 99
[2024-01-10 22:00] VITALS: BP 140/72; TEMP 98.6; O2SAT 98
[2024-01-10 22:41] VITALS: O2SAT 99
[2024-01-11 07:38] VITALS: BP 142/74; TEMP 98.1; O2SAT 99
[2024-01-11 10:28] VITALS: O2SAT 99
[2024-01-11 11:09] VITALS: O2SAT 99
[2024-01-11 22:00] VITALS: BP 112/62; TEMP 97.9; O2SAT 100
[2024-01-12 00:36] VITALS: O2SAT 98
[2024-01-12 07:09] VITALS: BP 141/76; TEMP 97.9; O2SAT 100
[2024-01-12] MEDS ORDERED: THERAHONEY GEL 1.5 OZ TUBE TP PRN (08:30)
[2024-01-12] MEDS: THERAHONEY GEL 1.5 OZ TUBE TP SCH (09:00)
[2024-01-12 10:47] VITALS: O2SAT 99
[2024-01-12 21:07] VITALS: BP 104/57; TEMP 98.4; O2SAT 98
[2024-01-12 22:40] VITALS: O2SAT 100; O2SAT 98
[2024-01-13 08:06] VITALS: BP 120/64; TEMP 97.7; O2SAT 98
[2024-01-13 10:12] VITALS: O2SAT 99
[2024-01-13 19:52] VITALS: BP 129/71; TEMP 98; O2SAT 99
[2024-01-13] MEDS: BACI/NEOM/POLY B OINT PKT 1 UDPKT PACKET TP SCH (20:57)
[2024-01-13 22:39] VITALS: O2SAT 99
[2024-01-14] MEDS: BISACODYL SUPP (10 MG) 10 MG/SUPP.RECT SUPP.RECT RC PRN (06:49)
[2024-01-14 07:30] VITALS: BP 124/70; TEMP 97.9; O2SAT 100
[2024-01-14 12:42] VITALS: O2SAT 100
[2024-01-14 20:39] VITALS: BP 135/71; TEMP 98; O2SAT 98
[2024-01-14 22:37] VITALS: O2SAT 99
[2024-01-15 08:42] VITALS: BP_SYST 116; BP_SYST 135; BP_DIAS 55; BP_DIAS 65; TEMP 97.2; TEMP 98; O2SAT 100
[2024-01-15 11:06] VITALS: O2SAT 100
[2024-01-15 11:07] VITALS: O2SAT 100
[2024-01-15 20:50] VITALS: BP 138/67; TEMP 97.8; O2SAT 100
[2024-01-15 23:59] VITALS: O2SAT 100; O2SAT 99
[2024-01-16] MEDS: MAGNESIUM HYDROXIDE 30 ML UDC GT PRN (05:01)
[2024-01-16 08:13] VITALS: BP 143/80; TEMP 97.3; O2SAT 100
[2024-01-16 10:58] VITALS: O2SAT 100
[2024-01-16] MEDS: ACETAMINOPHEN 650 MG/20.3 ML UDC GT PRN (18:43)
[2024-01-16 20:19] VITALS: BP 132/83; TEMP 97.3; O2SAT 100
[2024-01-16 23:28] VITALS: O2SAT 100
[2024-01-17 09:05] VITALS: BP 97/64; TEMP 97.9; O2SAT 100
[2024-01-17 10:38] VITALS: O2SAT 100
[2024-01-17 21:47] VITALS: BP 148/76; TEMP 98.4; O2SAT 96
[2024-01-17 23:32] VITALS: O2SAT 100
[2024-01-18 07:56] VITALS: BP 126/70; TEMP 97.9; O2SAT 100
[2024-01-18 10:19] VITALS: O2SAT 100
[2024-01-18 20:00] VITALS: BP 116/71; TEMP 98.6; O2SAT 99
[2024-01-18 20:22] VITALS: O2SAT 100
[2024-01-19 00:08] VITALS: O2SAT 100
[2024-01-19 10:23] VITALS: O2SAT 100
[2024-01-19 20:00] VITALS: BP 101/61; TEMP 98.1; O2SAT 99
[2024-01-19 23:52] VITALS: O2SAT 99
[2024-01-20 08:28] VITALS: BP 122/72; TEMP 97.6; O2SAT 100
[2024-01-20 10:39] VITALS: O2SAT 100
[2024-01-20 20:55] VITALS: BP 112/65; TEMP 97.9; O2SAT 99
[2024-01-20 22:00] VITALS: BP 112/65; TEMP 97.9; O2SAT 100
[2024-01-20 23:12] VITALS: O2SAT 100
[2024-01-21 09:12] VITALS: BP_SYST 130; TEMP 98.6; O2SAT 99
[2024-01-21 09:14] VITALS: BP 130/76; TEMP 98.6; O2SAT 99
[2024-01-21 10:35] VITALS: O2SAT 98
[2024-01-21 19:17] VITALS: BP 154/75; TEMP 99.3; O2SAT 100
[2024-01-21 23:24] VITALS: O2SAT 100
[2024-01-22] MEDS: FAMOTIDINE (20 MG) 20 MG TABLET GT SCH (05:02)
[2024-01-22 09:11] VITALS: BP 101/73; TEMP 97.9; O2SAT 100
[2024-01-22 11:34] VITALS: O2SAT 100
[2024-01-22 11:35] VITALS: O2SAT 100
[2024-01-22 20:00] VITALS: BP 100/61; TEMP 99; O2SAT 100
[2024-01-22 20:16] VITALS: O2SAT 100
[2024-01-22 23:33] VITALS: O2SAT 98
[2024-01-23] VITALS (7 sets, daily range): BP systolic 107–116; BP diastolic 56–78; TEMP 98.1–99.3; O2SAT 97–100
[2024-01-24 07:37] VITALS: BP 119/70; TEMP 98.1; O2SAT 100
[2024-01-24 10:16] VITALS: O2SAT 100
[2024-01-24 19:59] VITALS: BP 128/68; TEMP 98.3; O2SAT 99
[2024-01-24 20:22] VITALS: O2SAT 99
[2024-01-24 23:12] VITALS: O2SAT 99
[2024-01-25 10:03] LABS: ABG BASE EXCESS 6.7 mmol/L (-2.0-3.0); ABG OXYGEN SATURATION 96.5 % (94.0-98.0); ABG PCO2 50.9 mmHg (35.0-48.0); ABG PH 7.417 (7.350-7.450); ABG TOTAL HEMOGLOBIN 8.9 G/dL (13.5-17.5); COHb 0.5 % (0.5-1.5); MetHb 0.1 % (0.0-1.5); O2Hb 95.9 % (94.0-97.0)
[2024-01-25 10:08] VITALS: O2SAT 100
[2024-01-25 13:58] VITALS: BP 130/77; TEMP 98.1; O2SAT 100
[2024-01-25 19:28] VITALS: O2SAT 100
[2024-01-25 20:45] VITALS: BP 126/74; TEMP 98.7; O2SAT 99
[2024-01-25 22:29] VITALS: O2SAT 100
[2024-01-26 07:14] VITALS: BP 119/74; TEMP 97.5; O2SAT 99
[2024-01-26 10:16] VITALS: O2SAT 98
[2024-01-26] MEDS ORDERED: MORPHINE SULFATE INJ 2 MG/ML DISP.SYRIN IV PRN ×2 (13:00→18:00)
[2024-01-26] MEDS: MORPHINE SULFATE INJ 2 MG/ML DISP.SYRIN IVP ONE (18:17)
[2024-01-26] MEDS ORDERED: MORPHINE SULFATE INJ 2 MG/ML DISP.SYRIN IVP ONE (18:30)
[2024-01-26] MEDS: LORAZEPAM INJ 2 MG/ML VIAL IVP PRN (19:15)
[2024-01-26 19:17] VITALS: O2SAT 99
[2024-01-26] MEDS: MORPHINE SULFATE INJ 2 MG/ML DISP.SYRIN IVP PRN (20:45)
[2024-01-26 21:09] VITALS: BP 133/75; TEMP 98.1; O2SAT 94
[2024-01-26 23:05] VITALS: O2SAT 92
[2024-01-27 04:00] VITALS: O2SAT 96
[2024-01-27 07:55] VITALS: O2SAT 95
[2024-01-27 07:57] VITALS: O2SAT 95
[2024-10-16] MEDS ORDERED: TUBERCULIN,PURIF.PROT.DERIV. 5 TU/0.1 ML VIAL ID SCH (09:00)
== END 2024-01-27 09:15 | DRG 130 ==
LOC: SA 16:06
PROVIDERS: ADMIT Internal Medicine; ATTEND Internal Medicine
PROC: 5A1935Z Respiratory Ventilation, Less than 24 Consecutive Hours (ICD-10-PCS; principal; 2024-01-05)
PROC: 5A1955Z Respiratory Ventilation, Greater than 96 Consecutive Hours (ICD-10-PCS; 2024-01-05)
DX: J96.21 Acute and chronic respiratory failure with hypoxia (principal); I60.9 Nontraumatic subarachnoid hemorrhage, unspecified; J95.851 Ventilator associated pneumonia; U07.1 COVID-19; E43 Unspecified severe protein-calorie malnutrition; J15.69 Pneumonia due to other Gram-negative bacteria; G93.1 Anoxic brain damage, not elsewhere classified; D68.59 Other primary thrombophilia; E87.0 Hyperosmolality and hypernatremia; J90 Pleural effusion, not elsewhere classified; D63.8 Anemia in other chronic diseases classified elsewhere; L89.156 Pressure-induced deep tissue damage of sacral region; Z93.0 Tracheostomy status; K56.7 Ileus, unspecified; J96.22 Acute and chronic respiratory failure with hypercapnia; I12.9 Hypertensive chronic kidney disease with stage 1 through stage 4 chronic kidney disease, or unspecified chronic kidney disease; N18.9 Chronic kidney disease, unspecified; R13.10 Dysphagia, unspecified; Z79.82 Long term (current) use of aspirin; Z79.890 Hormone replacement therapy; Z79.51 Long term (current) use of inhaled steroids; Z79.899 Other long term (current) drug therapy; E78.5 Hyperlipidemia, unspecified; Z51.5 Encounter for palliative care; Z66 Do not resuscitate; Z99.11 Dependence on respirator [ventilator] status; Z87.440 Personal history of urinary (tract) infections; L30.9 Dermatitis, unspecified; M10.9 Gout, unspecified; G40.909 Epilepsy, unspecified, not intractable, without status epilepticus; Y84.8 Other medical procedures as the cause of abnormal reaction of the patient, or of later complication, without mention of misadventure at the time of the procedure; Y92.89 Other specified places as the place of occurrence of the external cause; N39.0 Urinary tract infection, site not specified; Z16.12 Extended spectrum beta lactamase (ESBL) resistance; H11.421 Conjunctival edema, right eye; E87.6 Hypokalemia; D75.839 Thrombocytosis, unspecified; Z74.09 Other reduced mobility; E03.9 Hypothyroidism, unspecified; E83.42 Hypomagnesemia; Q27.30 Arteriovenous malformation, site unspecified; Z98.890 Other specified postprocedural states; J98.11 Atelectasis
CPT/HCPCS: 31720; 36600; 71045-TC; 82803-TC; 82962-TC; 86580-TC; 87081-TC; 94003-TC; 94760-TC; 94762-TC; 94799-TC; 97110-TC; 97112-TC; 97760-TC; A4623; A7526; J1650; J1953; J2060; J2270; J2274; J7060; J8597